=== PATIENT | male | born 1960 | race Caucasian/White ===

== ENCOUNTER 2025-01-01 08:20 | Inpatient (IN) | payer MEDICAID, SELFPAY ==
[2025-01-01] VITALS (73 sets, daily range): BP systolic 96–198; BP diastolic 43–100; PULSE 79–104; RESP 6–26; TEMP 36.5–37.7; O2SAT 63–97; BMI 44.4
--- NOTE | 2025-01-01 08:25 | ECG_ITS ---
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 Measurements Intervals [place] Rate: 95 P: 10 MA: 176 QRS: -56 QRSD: 178 T: 1 QT: 400 QTc: 503 Interpretive Statements SINUS RHYTHM POSSIBLE LEFT ATRIAL ENLARGEMENT [-0.1mV P-WAVE IN V1/V2] INDETERMINATE AXIS RIGHT BUNDLE BRANCH BLOCK [120+ ms QRS DURATION, UPRIGHT V1, 40+ ms S IN I/aVL/V4/V5/V6] LEFT ANTERIOR FASCICULAR BLOCK [QRS AXIS <= -45, QR IN I, RS IN II] INTERPRETATION BASED ON A DEFAULT AGE OF 40 YEARS No previous ECG available for comparison Electronically Signed On 01-02-2025 11:37:46 CDT by Pop Santillan M.D. [id number]
--- NOTE | 2025-01-01 08:25 | XR_ITS ---
WS: [id number] XR chest 1V portable [id number] REASON FOR EXAM: dyspnea/cough FINDINGS: No previous examination for comparison. Moderate tortuosity and ectasia of the thoracic aorta. Cardiomegaly. Central pulmonary venous congestion. Subtle interstitial opacities in the right lower lung. There is blunting of the right costophrenic angle and fluid in the minor fissure. There is blunting of the costophrenic angle on the left. XR/XR chest 1V portable [id number] IMPRESSION: Findings are suggestive of subacute congestive heart failure.
--- NOTE | 2025-01-01 08:26 | W.ED.GENADLT ---
HPI - General Adult General: Chief complaint: Weakness Stated complaint: Stemi Time Seen by Provider: 01/01/25 08:25 History of Present Illness: 64-year-old male presents emergency room via EMS. Family called states he was generally not feeling well was very weak had been in bed since yesterday not really gotten up. EMS initially called a STEMI alert he is not having any chest pain appears to have a bundle branch block on his EKG does not on initial evaluation appear to be having acute coronary syndrome. Patient is diabetic he has bilateral leg ulcers their legs are red and inflamed he reports he was hospitalized about a month ago for IV antibiotics for cellulitis he was last on oral antibiotics finishing about a week to week and a half ago. He is moderately hypoxic when he arrives with an O2 sat in the 70% on peripheral oximetry. Patient is a smoker and diabetic. He relates he has a history of prostate cancer, states he had a prostatectomy but no chemo or radiation afterwards is not having any treatment now. Patient denies any oral anticoagulants denies any history of DVT or PE. Patient does not from this area he is traveling through he usually gets his care in the [facility]. Associated symptoms: Reports malaise and rash; Deny chest pain or dyspnea Related Data Home Medications ?Medication ?Instructions ?Recorded ?Confirmed bupropion HCl 300 mg 24 hr tablet, 300 mg PO QAM 01/01/25 01/01/25 extended release cephalexin 500 mg capsule 500 mg PO Q8H 01/01/25 01/01/25 doxycycline hyclate 100 mg tablet 100 mg PO BID 01/01/25 01/01/25 gabapentin 600 mg tablet 1,200 mg PO TID 01/01/25 01/01/25 ipratropium 0.5 mg-albuterol 3 mg 3 ml inhalation Q6H PRN Shortness 01/01/25 01/01/25 (2.5 mg base)/3 mL nebulization Of Breath soln lisinopril 20 mg tablet 20 mg PO BID 01/01/25 01/01/25 prednisone 20 mg tablet See Rx Instructions .Route .COMPLEX 01/01/25 01/01/25 spironolactone 25 mg tablet 25 mg PO DAILY 01/01/25 01/01/25 Allergies Allergy/AdvReac Type Severity Reaction Status Date / Time No Known Allergies Allergy Verified 06/02/25 08:33 Review of Systems Const: Reports: fever(s), chills, body aches, fatigue and malaise Card: Denies: chest pain Resp: Denies: dyspnea GI: Denies: abdominal pain : Denies: dysuria, urinary frequency or urinary urgency Musc: Denies: neck pain or back pain Skin/Breast: Reports: rash, sores, non-healing lesions and lesions PFSH ED PFSH: Medical History (Updated 01/01/25 @ 12:27 by Rajesh Paiz DO) Obesity Venous stasis of lower extremity Hypertension Diabetes mellitus Social History (Updated 01/01/25 @ 08:37 by Rajesh Paiz DO) Smoking and tobacco/nicotine status: current every day tobacco/nicotine user Physical Exam Const: COMMON NORMALS: no acute distress GENERAL APPEARANCE: cooperative ORIENTATION/CONSCIOUSNESS: Yes awake, Yes oriented to person, Yes oriented to place and Yes oriented to time HENMT: COMMON NORMALS: normocephalic, atraumatic and hearing grossly normal bilaterally HEAD & SCALP: normocephalic and atraumatic Resp: COMMON NORMALS: normal respiratory effort, No retractions, No use of accessory muscles and clear to auscultation bilaterally AUSCULTATION: clear to auscultation bilaterally Cardio: COMMON NORMALS: regular rate, regular rhythm and No murmurs present (Cardio) RATE: regular rate RHYTHM: regular rhythm GI: COMMON NORMALS: Soft to palpation and No hepatosplenomegaly present AUSCULTATION: Yes normoactive bowel sounds PALPATION: Yes Soft to palpation, No Tenderness to palpation present (GI), No Guarding due to palpation present (GI) and Yes No hepatosplenomegaly present Extremity: OTHER: Bilateral lower extremity edema redness and erythema or skin breakdown particularly in the anterior tibia distally on the left. Wounds are weeping semipurulent serous fluid Neuro: SENSORIUM/ORIENTATION: Yes oriented to person, Yes oriented to place and Yes oriented to time Skin: COMMON NORMALS: no rashes or lesions noted GENERAL SKIN EXAM: no rashes or lesions noted Course Vital Signs: Vital signs: Vital Signs Temperature 98.0 F 01/01/25 08:22 Pulse Rate 92 01/01/25 11:43 Respiratory Rate 14 01/01/25 10:45 Blood Pressure 198/80 01/01/25 11:43 Pulse Oximetry 89 L 01/01/25 11:43 Oxygen Delivery Me thod Nasal Cannula 01/01/25 10:45 Oxygen Flow Rate 6 01/01/25 10:45 MDM - General Adult Medical Decision Making Sepsis the source of the infection is a cellulitis in his lower extremities. Will admit we did get old records which were made available for the hospitalist to review by the time they arrived he had already gone to the floor. Cultures done and antibiotics initiated. Patient was given Lasix for his congestive heart failure. We did give a small amount of fluid however due to his congestive heart failure is felt that a full fluid bolus for sepsis would be detrimental as patient was already in decompensated heart failure Medical Records I reviewed the patient's medical records. Lab Data I reviewed the patient's lab results. 01/01/25 08:31 01/01/25 09:22 Radiology Impressions Chest X-Ray 01/01/25 08:25 IMPRESSION: Findings are suggestive of subacute congestive heart failure. Laboratory Results WBC 11.90 10^3/uL (3.29-11.43) H 01/01/25 08:31 RBC 5.44 10^6/uL (3.85-5.65) 01/01/25 08:31 Hgb 14.80 g/dL (11.27-16.99) 01/01/25 08:31 Hct 51.6 % (37-53) 01/01/25 08:31 MCV 94.9 fl (82-101) 01/01/25 08:31 MCH 27.2 pg (27-33) 01/01/25 08:31 MCHC 28.7 g/dL (30-55) L 01/01/25 08:31 RDW 22.0 % (12.1-15.1) H 01/01/25 08:31 Plt Count 292 10^3/cmm (157-399) 01/01/25 08:31 MPV 11.3 fL (7.4-10.4) H 01/01/25 08:31 Neut % (Auto) 78.2 % 01/01/25 08:31 Lymph % (Auto) 9.2 % 01/01/25 08:31 [place] % (Auto) 11.3 % 01/01/25 08:31 Eos % (Auto) 0.0 % 01/01/25 08:31 Baso % (Auto) 0.3 % 01/01/25 08:31 Neut # (Auto) 9.32 10^3/uL (1.8-7.7) H 01/01/25 08:31 Lymph # (Auto) 1.1 10^3/uL (0.8-4.8) 01/01/25 08:31 [place] # (Auto) 1.3 10^3/uL (0.2-0.9) H 01/01/25 08:31 Eos # (Auto) 0.0 10^3/uL (0.0-0.8) 01/01/25 08:31 Baso # (Auto) 0.0 10^3/uL (0.0-0.1) 01/01/25 08:31 Nucleated RBC % (auto) 0.2 % 01/01/25 08:31 Nucleated RBCs # 0.0 /100WBC 01/01/25 08:31 Specimen Type Arterial 01/01/25 08:35 Sample Site Radial, left 01/01/25 08:35 ABG pH 7.31 (7.35-7.45) L 01/01/25 08:35 ABG pCO2 59.8 mmHg (35-45) H 01/01/25 08:35 ABG pO2 61.6 mmHg (80.0-100.0) L 01/01/25 08:35 ABG PO2/FiO2 Ratio 192 01/01/25 08:35 ABG HCO3 29.8 mmol/L (22-26) H 01/01/25 08:35 ABG O2 Saturation 89.5 01/01/25 08:35 ABG Base Excess 1.8 mmol/L (-2.0-2.0) 01/01/25 08:35 Kt Test Pos 01/01/25 08:35 A-a O2 Gradient 12.3 mmHg (5-10) H 01/01/25 08:35 Hematocrit 46.0 % (42-52) 01/01/25 08:35 Hgb O2 Saturation 83.4 % (95-100) L 01/01/25 08:35 Carboxyhemoglobin 7.0 %THgb (0.4-20.1) 01/01/25 08:35 Methemoglobin < 0.0 % (0.4-1.5) L 01/01/25 08:35 Total Hemoglobin 15.0 g/dL (14-18) 01/01/25 08:35 Sodium 143.0 mmol/L (131-143) 01/01/25 08:35 Potassium 5.1 mmol/L (3.5-5.0) H 01/01/25 08:35 Glucose 295.0 mg/dL (70-115) H 01/01/25 08:35 Ionized Calcium 1.2 mmol/L (1.1-1.4) 01/01/25 08:35 O2 Delivery Device Nc 01/01/25 08:35 O2 Liters/Min 3.0 % 01/01/25 08:35 FiO2 32.0 % 01/01/25 08:35 [employer] Field Coordinator ID Cak 01/01/25 08:35 Sodium 144 mmol/L (136-145) 01/01/25 09:22 Potassium 5.6 mmol/L (3.5-5.1) H 01/01/25 09:22 Chloride 101 mmol/L (98-107) 01/01/25 09:22 Carbon Dioxide 26 mmol/L (22-29) 01/01/25 09:22 Anion Gap 22.6 (5-19) H 01/01/25 09:22 BUN 21 mg/dL (8-23) 01/01/25 09:22 Creatinine 1.9 mg/dL (0.7-1.2) H 01/01/25 09:22 GFR Calculation 35.6 mL/min (90-130) L 01/01/25 09:22 Glucose 292 mg/dL (65-115) H 01/01/25 09:22 Calculated Osmolality 312 mOsm/kg (285-295) H 01/01/25 09:22 Lactic Acid Cancelled 01/01/25 08:31 Lactate 3.9 mmol/L (0.5-2.2) H 01/01/25 09:22 Calcium 9.0 mg/dL (8.5-10.5) 01/01/25 09:22 Total Bilirubin 0.4 mg/dL (0.15-1.2) 01/01/25 09:22 AST 2977 U/L (0-40) H 01/01/25 09:22 ALT 1449 U/L (0-41) H 01/01/25 09:22 Alkaline Phosphatase 127 U/L (40-130) 01/01/25 09:22 Troponin T Baseline 102 ng/L (0-15) H* 01/01/25 09:22 NT-Pro-B Natriuret Pep 4572 pg/mL (0-125) H 01/01/25 09:22 Total Protein 5.9 g/dL (6.6-8.7) L 01/01/25 09:22 Albumin 2.7 g/dL (3.5-5.2) L 01/01/25 09:22 Globulin 3.2 g/dL (1.3-4.6) 01/01/25 09:22 Procalcitonin 0.76 ng/mL (0-0.5) H 01/01/25 09:22 Serum Ketones Negative (Negative) 01/01/25 09:22 All radiology interpretation(s) finalized by discharge Discharge Plan Discharge Patient Disposition: Admitted As Inpatient Admit Provider: Gabino Mcnulty Clinical Impression: Cellulitis and abscess of lower extremity, Diabetes mellitus, Hypertension, Venous stasis of lower extremity, Obesity, Sepsis Condition: Stable Coding Level of Care Code ED Agent Ticketing Gate for Reji Rooney
--- NOTE | 2025-01-01 08:37 | USCV_ITS ---
Bhaskar Gandara Age: 64 Gender: M : 1960 Exam Date: 01/01/2025 08:48 Ordering Phys: Rajesh Paiz DO Technologist: PAGE Exam Location: [facility] [place], [place] Indication: LE Swelling and Pain HISTORY: Lower extremity swelling. Lower extremity pain. PROCEDURES: Venous duplex imaging was performed in bilateral lower extremities. The following venous structures were evaluated: common femoral vein, profunda vein, proximal portion of the greater saphenous vein, superficial femoral vein, and the popliteal vein. In addition, the posterior tibial and peroneal trunk were evaluated. Serial compression, augmentation maneuvers, and spectral Doppler flow evaluation were performed. FINDINGS: No evidence of DVT seen in any vessel visualized at this time. CONCLUSIONS No evidence of left lower extremity DVT. No evidence of right lower extremity DVT. Donn Chavira MD (Electronically Signed) Final Date: 01 January 2025 09:28 S
[2025-01-01 08:47] LABS: ABG PCO2 59.8 mmHg (35-45); ABG PH Result 7.31 (7.35-7.45); Alveolar-Arterial Oxygen Gradi 12.3 mmHg (5-10); Base Excess ABG 1.8 mmol/L (-2.0-2.0); Blood Gas Allen Test Pos; Blood Gas Operator Identificat CAK; Blood Gas Sample Site Radial, left; Blood Gas Sample Type Arterial; HCO3 ABG 29.8 mmol/L (22-26); HGB O2 Sat 83.4 % (95-100); Ionized Calcium Level - ABG 1.2 mmol/L (1.1-1.4); Methemoglobin < 0.0 % (0.4-1.5); Oxygen Device NC; Oxygen Saturation ABG 89.5; PO2 ABG 61.6 mmHg (80.0-100.0); PO2 FiO2 Ratio Arterial Blood 192; Potassium Level - ABG 5.1 mmol/L (3.5-5.0)
--- NOTE | 2025-01-01 08:58 | PC.NURSE ---
family arrives and states that PT has got progressively weaker over the past week. Family also reports that PT does not wear his home 02
[2025-01-01 08:59] LABS: Basophils % 0.3 %; Hematocrit 51.6 % (37-53); Lymphocytes # 1.1 10^3/uL (0.8-4.8); Lymphocytes % 9.2 %; Mean Corpuscular HGB Conc 28.7 g/dL (30-55); Mean Corpuscular Hemoglobin 27.2 pg (27-33); Mean Corpuscular Volume 94.9 fl (82-101); Mean Platelet Volume 11.3 fL (7.4-10.4); Monocytes # 1.3 10^3/uL (0.2-0.9); Monocytes % 11.3 %; Neutrophils # 9.32 10^3/uL (1.8-7.7); Neutrophils % 78.2 %; Nucleated Red Blood Cells % 0.2 %; Platelet Count 292 10^3/cmm (157-399); Red Blood Count 5.44 10^6/uL (3.85-5.65)
--- NOTE | 2025-01-01 09:13 | PC.PHAR ---
Pharmacy states pt mainly fills in [facility] Ar. Keflex 500mg and Doxycycline 100mg should be finished. Pt has Humuilin 70/30 and Glipizide ER 10mg on file but not filled since 2022. No other diabetic medications found.
--- NOTE | 2025-01-01 09:27 | PC.NURSE ---
PT REFUSING MORRIS CATH, PT STATES I WEAR A DIAPER, I'M INCONTINENT. NURSE EDUCATED PT ABOUT A MORRIS, PT STATES YOU ARE NOT DOING THAT.
[2025-01-01] MEDS: FUROsemide 10 mg/mL SDV 10mL 60 MG IVP (09:38)
[2025-01-01 09:51] LABS: Ketone (Acetest) Serum Negative (Negative)
[2025-01-01 09:56] LABS: Lactate (Lactic Acid level) 3.9 mmol/L (0.5-2.2)
[2025-01-01 09:58] LABS: Troponin(5th) Baseline 102 ng/L (0-15)
[2025-01-01 10:16] LABS: NT Pro B Type Natriuretic Pept 4572 pg/mL (0-125); Procalcitonin 0.76 ng/mL (0-0.5)
--- NOTE | 2025-01-01 10:18 | ECG_ITS ---
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: : 1960 Requested By: Rajesh Lucas Order Number: [id number] Reading MD: GAURI BAR Measurements Intervals [employer] Rate: 94 P: 30 KS: 190 QRS: -68 QRSD: 190 T: 16 QT: 411 QTc: 514 Interpretive Statements SINUS RHYTHM POSSIBLE LEFT ATRIAL ENLARGEMENT [-0.1mV P-WAVE IN V1/V2] RIGHT BUNDLE BRANCH BLOCK [120+ ms QRS DURATION, UPRIGHT V1, 40+ ms S IN I/aVL/V4/V5/V6] LEFT ANTERIOR FASCICULAR BLOCK [QRS AXIS <= -45, QR IN I, RS IN II] Compared to ECG 01/01/2025 08:24:20 Indeterminate axis no longer present Electronically Signed On 01-03-2025 23:02:55 CDT by GAURI BAR [id number] [id number]
[2025-01-01 10:27] LABS: Albumin Level 2.7 g/dL (3.5-5.2); Alkaline Phosphatase 127 U/L (40-130); Blood Urea Nitrogen 21 mg/dL (8-23); Carbon Dioxide 26 mmol/L (22-29); Chloride 101 mmol/L (98-107); Creatinine Clr Calc Pharmacy 58.7904; Globulin 3.2 g/dL (1.3-4.6); Glomerular Filtration Rate 35.6 mL/min (90-130); Glucose 292 mg/dL (65-115); Osmolality Calculated 312 mOsm/kg (285-295); Sodium 144 mmol/L (136-145); Total Bilirubin 0.4 mg/dL (0.15-1.2); Total Protein 5.9 g/dL (6.6-8.7)
[2025-01-01 10:32] LABS: Anion Gap 22.6 (5-19); Potassium 5.6 mmol/L (3.5-5.1)
[2025-01-01 10:39] LABS: Alanine Aminotransferase 1449 U/L (0-41)
[2025-01-01 10:40] LABS: Aspartate Amino Transferase 2977 U/L (0-40)
[2025-01-01] MEDS: VANCOMYCIN ADD-Vantage 1,000 MG in 0.9% NaCl ADD-Vantage 250 ML 250 MG IV (10:59)
[2025-01-01] MEDS: sodium chloride 0.9% 50 ML IV (10:59)
[2025-01-01] MEDS: calcium chloride 10% Syr 10 mL 1 GM IVP (11:05)
[2025-01-01] MEDS: insulin regular-human 100 units/1 mL 10 UNIT IVP (11:11)
[2025-01-01 11:21] LABS: Reflex Lactate Order REFLEX LACTIC ORDERD
[2025-01-01 12:01] LABS: Glucose Point of Care 286 mg/dL (70-110)
[2025-01-01] MEDS: piperacillin-tazobactam 3.375 GM in sodium chloride 0.9% (plus) 50 ML IV ×2 (12:03→21:39)
[2025-01-01] MEDS: sodium bicarbonate 8.4% syr 100 MEQ in dextrose 5% 250 ML 700 MEQ IV (12:04)
[2025-01-01] MEDS: sodium chloride 0.9% 250 ML IV (12:10)
[2025-01-01 12:22] LABS: Lactic Acid level (Lactate) 3.5 mmol/L (0.5-2.2)
--- NOTE | 2025-01-01 12:25 | PM.HP ---
Providers/Chief Complaint Admitting Physician: Gabino Mcnulty Chief Complaint: Stemi History of Present Illness Bhaskar Gandara is a 64 year old male with a history of diabetes, hypertension, and prior prostate cancer surgery, chronic venous stasis, weeping lower extremity ulcers, congestive heart failure, diabetes, hypertension, heavy smoking, presents after being weak, lethargic in his camper. Was brought over on behest of his caregivers/employees who have been traveling with him. 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 He normally resides in [facility]. Over the past day or so, they have experienced red, swollen, weeping legs with ulcers, particularly on the left leg (distal third of the tibia and posteriorly) and swelling in the right leg as well. The patient reports pain in the affected areas. There are multiple abrasions with granulation tissue on the right arm and a bruise on the left elbow from the fall, as well as multiple healing linear abrasions on the posterior side of the right arm he states after another accident. The patient denies chest pain, pressure, fever, chills, sore throat, or sneezing. They report chronic shortness of breath and cough, worsened over the last week, and a long history of heavy smoking (since age 5, currently still smoking heavily). The patient uses supplemental oxygen as needed but not at night and does not use CPAP. They have a history of incontinence following prostate surgery but no difficulty with urination, no burning, pain, or blood in urine or stool, and no abdominal pain or vomiting. The patient lives in an , uses aquino for support when walking, and has assistance from an employee/friend. They report taking all prescribed medications as directed. The patient uses kratom for pain relief and has a history of being advised to use ibuprofen for pain, which they have taken frequently. There is a recent finding of elevated creatinine (1.9), and the patient is being evaluated for possible acute or chronic kidney dysfunction. The patient is also being evaluated for possible congestive heart failure and infection (cellulitis) of the legs, with an elevated white blood cell count and troponin noted. The patient denies alcohol and other recreational drug use except for kratom. He reports a history of a normal chest x-ray despite heavy smoking. The patient is open to nicotine patches while hospitalized and has a designated decision-maker (Kateryna and their son) if needed. Review of Systems Const: Reports: change in sleep pattern; Denies: fever(s), chills, body aches or malaise ENMT: Denies: throat pain Card: Reports: edema and swelling of feet/ankles; Denies: chest pain, pre-syncope or dyspnea on exertion Resp: Denies: dyspnea, productive cough, change in phlegm color or hemoptysis GI: Denies: abdominal pain, nausea, vomiting, diarrhea, constipation, hematochezia or melena : Denies: flank pain, difficulty urinating, urinary frequency or hematuria Musc: Denies: back pain, joint swelling or joint redness Skin/Breast: Denies: rash or new lesions Neuro: Reports: other (Lethargy); Denies: headache(s) Medications/Allergies Home Medications ?Medication ?Instructions ?Recorded ?Confirmed ?Last Taken ?Type bupropion HCl 300 mg 24 hr tablet, 300 mg PO QAM 01/01/25 01/01/25 Unknown History extended release cephalexin 500 mg capsule 500 mg PO Q8H 01/01/25 01/01/25 Unknown History doxycycline hyclate 100 mg tablet 100 mg PO BID 01/01/25 01/01/25 Unknown History gabapentin 600 mg tablet 1,200 mg PO TID 01/01/25 01/01/25 Unknown History ipratropium 0.5 mg-albuterol 3 mg 3 ml inhalation Q6H PRN Shortness 01/01/25 01/01/25 Unknown History (2.5 mg base)/3 mL nebulization Of Breath soln lisinopril 20 mg tablet 20 mg PO BID 01/01/25 01/01/25 Unknown History prednisone 20 mg tablet See Rx Instructions .Route .COMPLEX 01/01/25 01/01/25 Unknown History spironolactone 25 mg tablet 25 mg PO DAILY 01/01/25 01/01/25 Unknown History Allergies Allergy/AdvReac Type Severity Reaction Status Date / Time No Known Allergies Allergy Verified 01/01/25 08:33 PFSH Acute PFSH: Medical History (Updated 01/01/25 @ 14:04 by Gabino Mcnulty MD) Heavy cigarette smoker CHF (congestive heart failure) Obesity Venous stasis of lower extremity Hypertension Diabetes mellitus Social History Smoking and tobacco/nicotine status: current every day tobacco/nicotine user Vitals/I&O/Wt Last Vital Signs Temp 98.0 F 01/01/25 08:22 Pulse 92 01/01/25 11:43 Resp 14 01/01/25 10:45 BP 198/80 01/01/25 11:43 Pulse Ox 89 L 01/01/25 11:43 O2 Del Method Nasal Cannula 01/01/25 10:45 O2 Flow Rate 6 01/01/25 10:45 12/31/24 01/01/25 01/01/25 22:59 06:59 14:59 Intake Total 50 / 50 Balance 50 / 50 Weight last 48 hrs Weight 158.757 kg Physical Exam Const: COMMON NORMALS: patient oriented x3 and alert GENERAL APPEARANCE: cooperative ORIENTATION/CONSCIOUSNESS: Yes awake HENMT: COMMON NORMALS: oropharynx normal Resp: COMMON NORMALS: normal respiratory effort AUSCULTATION: diminished lung sounds Cardio: COMMON NORMALS: no JVD, regular rhythm, S1 normal heart sound present, S2 normal heart sound present and No murmurs present (Cardio) RHYTHM: regular rhythm HEART SOUNDS: S1 normal heart sound present and S2 normal heart sound present GI: COMMON NORMALS: Normal to inspection, nondistended, normoactive bowel sounds present, Soft to palpation and non-tender PALPATION: Yes Soft to palpation Extremity: OTHER: Legs red, swollen, weeping with ulcers (noted on left leg distal third of tibia and posteriorly), both legs swollen (3+), multiple abrasions on right arm, bruise on left elbow. Linear abrasions healing with granulation tissue without surrounding redness on posterior right arm extending from the triceps all the way to the wrist. Neuro: COMMON NORMALS: patient oriented x3 and moves all extremities SENSORIUM/ORIENTATION: Yes alert OTHER: [employer] Data 01/01/25 08:31 01/01/25 09:22 Micro: Microbiology 01/01/25 09:31 Blood Culture - Preliminary Blood SPECIMEN COLLECTED 01/01/25 08:31 Blood Culture - Preliminary Blood SPECIMEN COLLECTED A&P Assessment and plan (1) Respiratory failure with hypoxia and hypercapnia: Lethargic, has not been getting up monitor mental several days per caregivers what brought him in, on presentation with hypoxic and hypercapnic respiratory failure, saturation in the 70s, with respiratory status, send 0.31/59.8/61.6/29.8, previously using oxygen as needed only, had to be started on 6 L nasal cannula oxygen. Reviewed vitals, CBC, ABG, CMP, troponin, chest x-ray, EKG, ER provider note, discussed with ER provider. Respiratory failure appears to be multifactorial with noted elevated BNP, findings of congestive heart failure on chest x-ray, peripheral edema with weeping in lower extremities, diminished air entry, hypercapnia. As well as COPD moderate exacerbation, noted coughing on exam, mildly productive. Diminished air entry. Furthermore with acute encephalopathy on presentation with lethargy, has been listless in the last few days in his camper and so was brought in by the caregivers for evaluation. He is not from this area, he is traveling from [place] with his employees and caregiver. Treat CHF exacerbation, continue IV diuresis with 40 mg IV Lasix twice daily, monitor intake and output, monitor electrolytes with risk of deficiency, monitor renal function with risk of worsening CHINTAN. Assessed with TTE. Question of possible PE not excluded, D-dimer abnormal, although may be in the setting of CHINTAN and leg wounds, lower extremity duplex has been performed and without DVT. Difficult to perform definitive imaging at this time as he is having renal dysfunction, and anticipated technical difficulties currently with VQ scan. Will empirically change to heparin drip for now without bolus, monitor PTT with risk of bleeding, until more definitive, monitor for risk of assessment can be performed. Continue oxygen support, target saturation 88-92%, avoid hyperoxia. Treat COPD exacerbation with breathing treatments, IV Solu-Medrol 30 mg IV every 8 hours, empiric antibiotic coverage with Zosyn and vancomycin as below. (2) CHINTAN (acute kidney injury): Unclear etiology of CHINTAN, possibly secondary to NSAID use as he does take a lot of ibuprofen. Discussed with him to avoid NSAIDs. Will assess kidney ultrasound. Reassess renal function. Monitor intake and output, although this is very difficult due to his incontinence. He declines Ayala unless he is sedated. (3) Hyperkalemia: Hold lisinopril, hold spironolactone. Low potassium diet. Reassess potassium. (4) Transaminitis: Moderate to severe transaminitis, AST 2977, ALT 1449. Request hepatitis panel, HIV. Check CK. Check liver ultrasound. Requested INR, ammonia. (5) CHF (congestive heart failure): Severe acute congestive heart failure, type unknown, with respiratory failure with hypoxia and hypercapnia. obtain TTE. Continue IV diuresis, monitor for electrolyte deficiency, worsening renal function. Complete troponin EKG series. (6) Troponin level elevated: Noted baseline troponin elevation at 102. No chest pain. Does have history of congestive heart failure type unknown. Complete troponin EKG series. Initiated heparin drip as above. Will give a dose of aspirin, monitor for risk of bleeding. Monitor PTT. Obtain TTE. (7) Cellulitis: Of lower extremity, worse on the left, superimposed on bilateral lower extremity edema with weeping, congestive heart failure exacerbation with chronic dermatitis and ulcers. Empiric Zosyn and vancomycin at this time. Monitor for risk of worsening kidney injury with antibiotic combination. (8) Lower extremity ulceration: Treat congestive heart failure exacerbation, severe edema of lower extremities with weeping, ulcerations. Continue IV diuresis as above. Elevate lower extremities. Wound care with alginate dressing. (9) Chronic stasis dermatitis: Will obtain CYN. May benefit from compression dressings if adequate perfusion. (10) Diabetes mellitus: Sliding scale insulin. Consistent carb diet. Monitor POC glucose. (11) Heavy cigarette smoker: Discussed smoking cessation for 4 minutes. He is not ready to quit. He smokes upwards of 3 packs/day. Discussed risks of cardiovascular complications, [place], stroke, lung disease, cancer, other, he understands, he is not ready to quit. He is agreeable to nicotine replacement in the hospital. Plan History of prostate cancer status post prostatectomy with urinary incontinence. Edentulous: Mechanical soft diet. PDMP PDMP Reviewed: Not Reviewed Attestations Medical Necessity Statement*: Admission over 2 midnights anticipated for assessment and management of respiratory failure with hypoxia and hypercapnia, respiratory acidosis, acute congestive heart failure, suspected undiagnosed COPD with exacerbation, cellulitis, assessment of possible NSTEMI, possible PE, and gentleman who is a very heavy smoker. Diagnoses Respiratory failure with hypoxia and hypercapnia J96.91; J96.92 CHINTAN (acute kidney injury) N17.9 Hyperkalemia E87.5 Transaminitis R74.01 CHF (congestive heart failure) I50.9 Troponin level elevated R79.89 Cellulitis L03.90 Lower extremity ulceration L97.909 Chronic stasis dermatitis I87.2 Diabetes mellitus E11.9 Heavy cigarette smoker F17.210
--- NOTE | 2025-01-01 13:43 | USR_ITS ---
PROCEDURE INFORMATION: Exam: US Abdomen, Limited; Right Upper Quadrant Exam date and time: 01/01/2025 5:07 PM Age: 64 years old Clinical indication: Abnormal findings; Abnormal lab test; Other: Transamnitis; Additional info: Transaminitis TECHNIQUE: Imaging protocol: Real time ultrasound of the abdomen with image documentation. Limited exam focused on the right upper quadrant. COMPARISON: No relevant prior studies available. FINDINGS: Liver: The liver demonstrates an irregular contour and parenchymal heterogeneity consistent with cirrhosis. I see no liver mass. Gallbladder: Normal. No gallstones. There is no gallbladder wall thickening. Biliary ducts: Normal. No stones. No dilation. Pancreas: Visualized pancreas is unremarkable. Right kidney: Normal. No mass. No hydronephrosis. US/US liver [id number] IMPRESSION: Hepatic cirrhosis
[2025-01-01] MEDS: ipratropium-albuterol 3 mL Neb INHALATION ×2 (14:01→19:45)
[2025-01-01 14:23] LABS: Magnesium 2.2 mg/dL (1.7-2.3)
[2025-01-01 14:24] LABS: Bilirubin Urine Negative (Negative); Blood Urine 2+ (Negative); Glucose Urine UA Negative (Normal); Ketones Urine Negative (Negative); Leukocyte Esterase Urine Trace (Negative); Nitrate Urine Negative (Negative); Protein Urine 2+ (Negative); Specific Gravity, Urine 1.019 (1.005-1.030); Urine Appearance Cloudy (CLEAR); Urine Color Dark Yellow (Yellow)
--- NOTE | 2025-01-01 14:25 | ECG_ITS ---
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: : 1960 Requested By: Rajesh Lucas Order Number: [id number] Reading MD: GAURI BAR Measurements Intervals [place] Rate: 93 P: 46 WA: 203 QRS: -71 QRSD: 182 T: 48 QT: 395 QTc: 494 Interpretive Statements SINUS RHYTHM POSSIBLE LEFT ATRIAL ENLARGEMENT [-0.1mV P-WAVE IN V1/V2] RIGHT BUNDLE BRANCH BLOCK [120+ ms QRS DURATION, UPRIGHT V1, 40+ ms S IN I/aVL/V4/V5/V6] LEFT ANTERIOR FASCICULAR BLOCK [QRS AXIS <= -45, QR IN I, RS IN II] Compared to ECG 01/01/2025 10:18:28 No significant changes Electronically Signed On 01-03-2025 23:03:12 CDT by GAURI BAR [email or web address]
[2025-01-01 14:29] LABS: Add Urine Microscopic? YES; Bacteria Urine None Seen /hpf; Hyaline Casts Urine 42.19 /lpf; RBC Urine 0-2 /hpf (0-2); Squamous Epithelial Cell Urine 0-5 /hpf (0-5); WBC Urine 0-5 /hpf (0-5)
[2025-01-01 14:30] LABS: INR 1.65 (0.8-1.2)
[2025-01-01 14:33] LABS: Ammonia 116 umol/L (16-60)
[2025-01-01] MEDS: nicotine 21 mg Patch 2 PATCH TRANSDERMA (14:36)
[2025-01-01 14:37] LABS: HIV 1 & 2 Antibody Non-Reactive (Non-Reactiv); HIV 1 & 2 Antigen Non-Reactive (Non-Reactiv)
[2025-01-01] MEDS: enoxaparin 40 mg/0.4 mL Syringe SUBCUT (14:38)
[2025-01-01 14:39] LABS: Hepatitis A Antibody IgM Non-Reactive (Nonreactive); Hepatitis B Core IgM Non-Reactive (Nonreactive); Hepatitis B Surface Antigen Non-Reactive (Nonreactive); Hepatitis C Virus Antibody Non-Reactive (Nonreactive)
[2025-01-01 14:39] LABS: D Dimer 4.32 ug/mLFEU (0-0.59)
[2025-01-01 15:31] LABS: Amphetamines Screen Urine Negative (Negative); Barbiturates Screen Urine Negative (Negative); Benzodiazepines Screen Urine Negative (Negative); Cocaine Screen Urine Negative (Negative); Opiate Screen Urine Negative (Negative); PCP Screen Urine Negative (Negative); THC Screen Urine Negative (Negative)
[2025-01-01 15:53] LABS: Estmated Average Glucose 192; Hemoglobin A1C 8.3 % (4.0-6.0)
--- NOTE | 2025-01-01 16:01 | PC.NURSE ---
Wound assessment: Pt has multiple wounds on lower cellulitis. legs. Measured one on each leg for the assessment. There is also multiple wounds noted on pt's posterior right arm. Measure one slightly distal to the elbow.
[2025-01-01 16:05] LABS: Troponin 5 6HR 95.06 ng/L (0-15); Troponin 5 6HR Delta -6.94 ng/L (0-12)
[2025-01-01 16:17] LABS: Creatine Phosphokinase 306 U/L (39-308)
[2025-01-01] MEDS: aspirin 81 mg EC Tablet 162 MG PO (16:47)
[2025-01-01] MEDS: acetaminophen 325 mg Tablet 650 MG PO (16:48)
[2025-01-01] MEDS: methylPREDNISolone sod succ 40 mg/mL INJ 30 MG IVP ×2 (16:50→21:42)
[2025-01-01] MEDS: albumin 25 G/100 ML BAG 60 G IV (16:52)
[2025-01-01] MEDS: FUROsemide 10 mg/mL SDV 4mL 40 MG IVP (16:57)
[2025-01-01] MEDS: heparin drip 25,000 UNIT/500 ML PREMIX 41 UNIT IV (17:03)
[2025-01-01] MEDS: vancomycin 2,000 MG/400 ML PIGGYBACK 200 MG IV (17:07)
[2025-01-01 17:17] LABS: Glucose Point of Care 360 mg/dL (70-110)
--- NOTE | 2025-01-01 17:18 | PC.NURSE ---
Dr Mcnulty notified via secure messaging: Pt refusing some of the US imaging tonight. Told the tech to come back later or tomorrow.
[2025-01-01] MEDS: insulin lispro 100 unit/1 mL SUBCUT ×2 (17:22→21:40)
--- NOTE | 2025-01-01 18:22 | PC.NURSE ---
Pt's cigarettes and juan randall sent homw with his caregiver, Ashley
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
--- NOTE | 2025-01-01 21:05 | PHA.VACGOAL ---
Vancomycin Goal - Goal Vancomycin Goal:: 10-15 mg/L Vancomycin Indication:: SSTI - Therapy Current therapy:: Pip/Tazo Day of therpy:: Day []of [] . Actual body weight (kg): 144.7 kg - Data Labs: WBC 11.90 10^3/uL (3.29-11.43) H 01/01/25 08:31 RBC 5.44 10^6/uL (3.85-5.65) 01/01/25 08:31 Hgb 14.80 g/dL (11.27-16.99) 01/01/25 08:31 Hct 51.6 % (37-53) 01/01/25 08:31 MCV 94.9 fl (82-101) 01/01/25 08:31 MCH 27.2 pg (27-33) 01/01/25 08:31 MCHC 28.7 g/dL (30-55) L 01/01/25 08:31 RDW 22.0 % (12.1-15.1) H 01/01/25 08:31 Sodium Cancelled 01/01/25 15:28 Potassium Cancelled 01/01/25 15:28 Chloride Cancelled 01/01/25 15:28 Carbon Dioxide Cancelled 01/01/25 15:28 Anion Gap Cancelled 01/01/25 15:28 BUN Cancelled 01/01/25 15:28 Creatinine Cancelled 01/01/25 15:28 GFR Calculation Cancelled 01/01/25 15:28 Treatment plan:: new consult Regimen:: New start vancomycin for Cellulitis. 1000 mg dose given in ER. No prior vancomycin history found. Started on maintenance dose of 2000 mg q24h.
[2025-01-01 21:07] LABS: Glucose Point of Care 342 mg/dL (70-110)
[2025-01-02] VITALS (212 sets, daily range): BP systolic 90–174; BP diastolic 43–80; PULSE 88–99; RESP 0–32; TEMP 36.7–37.2; O2SAT 76–95; BMI 44.4
--- NOTE | 2025-01-02 00:04 | PC.NURSE ---
PTT order placed for 0600, per protocol. Titrated at 0001. See Orders
--- NOTE | 2025-01-02 00:40 | PC.NURSE ---
Patients O2 continues to drop. Replaced pulse ox, sat patient up in bed, placed Oxymask on patient and still continued to drop into the low 80s. RT notified.
--- NOTE | 2025-01-02 01:35 | PC.NURSE ---
Patient cont to have periods of apnea and O2 saturation dropping into low 80s. Provider notified and received orders to place patient on bi-pap. RT notified and order placed.
[2025-01-02] MEDS: piperacillin-tazobactam 3.375 GM in sodium chloride 0.9% (plus) 50 ML IV (03:28)
[2025-01-02] MEDS: FUROsemide 10 mg/mL SDV 4mL 40 MG IVP ×2 (03:29→20:03)
[2025-01-02] MEDS: ipratropium-albuterol 3 mL Neb INHALATION ×4 (03:52→19:52)
[2025-01-02] MEDS: heparin drip 25,000 UNIT/500 ML PREMIX 44 UNIT IV ×2 (04:14→15:02)
[2025-01-02 07:01] LABS: Basophils % 0.2 %; Hematocrit 47.7 % (37-53); Lymphocytes # 0.9 10^3/uL (0.8-4.8); Lymphocytes % 9.3 %; Mean Corpuscular HGB Conc 28.1 g/dL (30-55); Mean Corpuscular Volume 96.2 fl (82-101); Monocytes # 0.7 10^3/uL (0.2-0.9); Monocytes % 7.1 %; Neutrophils # 8.27 10^3/uL (1.8-7.7); Neutrophils % 82.7 %; Nucleated Red Blood Cells # 0.1 /100WBC; Nucleated Red Blood Cells % 0.8 %; Platelet Count 261 10^3/cmm (157-399); Red Blood Count 4.96 10^6/uL (3.85-5.65); Red Cell Distribution Width 20.6 % (12.1-15.1)
[2025-01-02 07:18] LABS: Partial Thromboplastin Time 65.8 SECONDS (23.9-36.7)
[2025-01-02 07:20] LABS: Albumin Level 2.9 g/dL (3.5-5.2); Alkaline Phosphatase 132 U/L (40-130); Anion Gap 16.9 (5-19); Blood Urea Nitrogen 42 mg/dL (8-23); Calcium 8.4 mg/dL (8.5-10.5); Carbon Dioxide 31 mmol/L (22-29); Chloride 100 mmol/L (98-107); Creatinine Clr Calc Pharmacy 48.1467; Glomerular Filtration Rate 30.1 mL/min (90-130); Glucose 326 mg/dL (65-115); Osmolality Calculated 319 mOsm/kg (285-295); Potassium 4.9 mmol/L (3.5-5.1); Sodium 143 mmol/L (136-145); Total Bilirubin 0.3 mg/dL (0.15-1.2); Total Protein 5.9 g/dL (6.6-8.7)
[2025-01-02 07:30] LABS: INR 1.64 (0.8-1.2)
[2025-01-02 07:32] LABS: Alanine Aminotransferase 2909 U/L (0-41)
[2025-01-02 07:41] LABS: Aspartate Amino Transferase 3452 U/L (0-40)
[2025-01-02 08:14] LABS: Glucose Point of Care 308 mg/dL (70-110)
[2025-01-02] MEDS: insulin lispro 100 unit/1 mL SUBCUT ×4 (08:29→23:24)
[2025-01-02] MEDS: methylPREDNISolone sod succ 40 mg/mL INJ 30 MG IVP ×3 (08:29→23:25)
[2025-01-02] MEDS: nicotine 21 mg Patch 2 PATCH TRANSDERMA (08:29)
[2025-01-02] MEDS: albumin 37.5 GM/150 ML VIAL IV (08:31)
--- NOTE | 2025-01-02 10:31 | P.PN_ITS ---
Subjective 2 Subjective: Somnolent this morning, on BiPAP, awakens to voice and shoulder touch initially, but later more lethargic. Adjustments made to BiPAP. Vitals/I&O/Wt Last Vital Signs Temp 98.2 F 01/02/25 04:02 Pulse 90 01/02/25 08:11 Resp 16 01/02/25 07:46 BP 108/58 01/02/25 04:02 Pulse Ox 89 L 01/02/25 07:46 O2 Del Method BiPAP 01/02/25 07:46 O2 Flow Rate 15 01/02/25 00:35 FiO2 45 01/02/25 07:46 01/01/25 01/02/25 01/02/25 22:59 06:59 14:59 Intake Total 1200 / 1900 670.000 / 2570.000 219.667 / 219.667 Output Total 550 / 550 Balance 1200 / 1900 120.000 / 2020.000 219.667 / 219.667 Weight last 48 hrs Weight 144.7 kg Weight 144.7 kg Weight 158.757 kg Physical Exam 2 Const: GENERAL APPEARANCE: lethargic ORIENTATION/CONSCIOUSNESS: Yes lethargic HENMT: COMMON NORMALS: oropharynx normal Resp: COMMON NORMALS: normal respiratory effort AUSCULTATION: diminished lung sounds Cardio: COMMON NORMALS: regular rhythm, S1 normal heart sound present, S2 normal heart sound present and No murmurs present (Cardio) RHYTHM: regular rhythm HEART SOUNDS: S1 normal heart sound present and S2 normal heart sound present GI: COMMON NORMALS: Normal to inspection, nondistended, normoactive bowel sounds present, Soft to palpation and non-tender PALPATION: Yes Soft to palpation Extremity: OTHER: Legs red, swollen, weeping with ulcers (noted on left leg distal third of tibia and posteriorly), both legs swollen (3+), multiple abrasions on right arm, bruise on left elbow. Linear abrasions healing with granulation tissue without surrounding redness on posterior right arm extending from the triceps all the way to the wrist. Neuro: COMMON NORMALS: moves all extremities SENSORIUM/ORIENTATION: Yes lethargic OTHER: Asterixis Urinary Catheter Management: Ayala: Cath Placed During This Visit: yes Urinary Catheter Date of Insertion: 01/02/25 Urinary Catheter Time of Insertion: 09:55 Data 01/02/25 06:52 01/02/25 15:46 Micro: Microbiology 01/01/25 09:31 Blood Culture - Preliminary Blood NEGATIVE TO DATE 01/01/25 08:31 Blood Culture - Preliminary Blood NEGATIVE TO DATE A&P Assessment and plan (1) Respiratory failure with hypoxia and hypercapnia: Requiring BiPAP this morning. Lethargic but initially waking up to shoulder touch and voice. More lethargic in the afternoon. Repeat ABG, ammonia, CMP. Echocardiogram is being obtained. Discussed with his son, discussed risk of deterioration. Consideration of mechanical ventilation. Current NIPPV therapy. Added lactulose due to hyperammonemia and discovered cirrhosis on liver ultrasound. Discussed with the son. Repeat ABG with noted worsening of respiratory acidosis. Discussed with RT, NIPPV settings adjusted to AVAPS. In the evening he is alert and communicating. Ayala has been placed to better track intake and output. Continue to monitor urine output. Repeat CMP with noted improving liver parameters and renal function. Ammonia slightly better. Continue treatment of acute CHF as well as acute COPD. Continue IV steroids, and risk of gastritis, encephalopathy, hypertension, hyperglycemia. Continue breathing treatments. On empiric antibiotics for continued treatment of cellulitis. Antibiotics changed to linezolid and cefepime due to worsening renal function initially this morning. Question of possible PE not excluded, D-dimer abnormal, although may be in the setting of CHINTAN and leg wounds, lower extremity duplex has been performed and without DVT. Difficult to perform definitive imaging at this time as he is having renal dysfunction, and anticipated technical difficulties currently with VQ scan. Will empirically change to heparin drip for now without bolus, monitor PTT with risk of bleeding, until more definitive, monitor for risk of assessment can be performed. Continue oxygen support, target saturation 88-92%, avoid hyperoxia. (2) CHINTAN (acute kidney injury): Potassium improved, renal function worsening this morning up to 2.2 creatinine, worsening BUN, producing urine, but very difficult to struggle discussed with son due to incontinence. He had previously not been wanting to receive Ayala while awake. Lethargic today, Ayala placed. Producing urine so far. Continue to monitor. Albumin initially started, however, with worsening lethargy, continued fluid overload, concern for worsening hypercapnia withheld. Unclear etiology of CHINTAN, possibly secondary to NSAID use as he does take a lot of ibuprofen. Discussed with him to avoid NSAIDs. Will assess kidney ultrasound. Reassess renal function. Monitor intake and output, although this is very difficult due to his incontinence. He declines Ayala unless he is sedated. Reviewed kidney ultrasound. No hydronephrosis. Bladder decompressed. (3) Hyperkalemia: Potassium with fluctuation, improved this morning, but currently up to 5.5 again. Continues with low potassium diet, although has not eaten much today. Repeat potassium again this evening with diuresis. With holding lisinopril and spironolactone. Monitor on telemetry. (4) Transaminitis: Noted worsening transaminitis this morning. Reviewed liver ultrasound, discovering cirrhosis. Discussed with son new diagnosis. Ammonia level rechecked, 108. INR rechecked, 1.64. With worsening lethargy/encephalopathy today, requested lactulose enema. (5) CHF (congestive heart failure): Continue IV diuretic. Ayala catheter placed. Severe acute congestive heart failure, type unknown, with respiratory failure with hypoxia and hypercapnia. Review pending TTE. Continue IV diuresis, monitor for electrolyte deficiency, worsening renal function. Reviewed troponin series, without any further significant rise, mild decrease. Discussed with his son. (6) Troponin level elevated: As above. No chest pain. Does have history of congestive heart failure type unknown. Complete troponin EKG series. Initiated heparin drip as above. Will give a dose of aspirin, monitor for risk of bleeding. Monitor PTT. Obtain TTE. (7) Cellulitis: Antibiotics changed to linezolid and cefepime given worsening renal function today with possible contribution of antibiotic combination. Of lower extremity, worse on the left, superimposed on bilateral lower extremity edema with weeping, congestive heart failure exacerbation with chronic dermatitis and ulcers. Empiric Zosyn and vancomycin at this time. Monitor for risk of worsening kidney injury with antibiotic combination. (8) Lower extremity ulceration: Reviewed arterial Doppler ultrasound, noted monophasic flow below the knees, concern for at least moderate arterial disease, would avoid compression dressings with concern of causing ischemia. Discussed with nursing. Continue with alginate dressing, elevate extremities. Treat congestive heart failure exacerbation, severe edema of lower extremities with weeping, ulcerations. Continue IV diuresis as above. E (9) Chronic stasis dermatitis: (10) Diabetes mellitus: Sliding scale insulin. Consistent carb diet. Monitor POC glucose. (11) Heavy cigarette smoker: Discussed smoking cessation for 4 minutes. He is not ready to quit. He smokes upwards of 3 packs/day. Discussed risks of cardiovascular complications, [place], stroke, lung disease, cancer, other, he understands, he is not ready to quit. He is agreeable to nicotine replacement in the hospital. Plan Encephalopathy: Acute metabolic encephalopathy secondary to worsening renal failure, liver dysfunction, underlying cirrhosis, hyperammonemia, as well as hypercapnic encephalopathy with respiratory acidosis. Further assessment and treatment as above. History of prostate cancer status post prostatectomy with urinary incontinence. Edentulous: Mechanical soft diet. PDMP PDMP Reviewed: Not Reviewed Attestations 2 Medical Necessity Statement*: Continue admission for assessment and management of respiratory failure with encephalopathy Coding Level of Care Code Critical Care >/= 30 minutes Critical care time (in minutes): 45 The high probability of a clinically significant, sudden or life threatening deterioration, as referenced in this documentation, required my full and direct attention, intervention and personal management. The critical care time shown is in addition to time spent performing any reported separately billable procedures and includes the following: [x] Data and vital sign review and interpretation [x ] Patient assessment, examination and intervention [x] Medication orders and management [x] Patient/Family updates as able [x] Care Coordination and Documentation. Diagnoses Respiratory failure with hypoxia and hypercapnia J96.91; J96.92 CHINTAN (acute kidney injury) N17.9 Hyperkalemia E87.5 Transaminitis R74.01 CHF (congestive heart failure) I50.9 Troponin level elevated R79.89 Cellulitis L03.90 Lower extremity ulceration L97.909 Chronic stasis dermatitis I87.2 Diabetes mellitus E11.9 Heavy cigarette smoker F17.210
[2025-01-02 12:17] LABS: Glucose Point of Care 304 mg/dL (70-110)
--- NOTE | 2025-01-02 12:36 | XR_ITS ---
WS: [id number] XR chest 1V portable [id number] REASON FOR EXAM: post picc insertion FINDINGS: Right arm PICC line placement. The tip of the PICC line is in the mid to distal SVC. The x-ray technologist was told to inform the PICC line nurse to advance the catheter the additional centimeter of catheter still outside the scan which would place it within the distal SVC, a position appropriate for use. XR/XR chest 1V portable [id number] IMPRESSION: Right arm PICC line placement as above.
[2025-01-02] MEDS: linezolid premix 600 MG/300 ML PREMIX 300 MG IV ×2 (12:38→23:24)
--- NOTE | 2025-01-02 13:28 | PICC.NOTE ---
Triple lumen PICC placed to right basilic vein. Referred to vascular access nurse for PICC placement due to poor access and heparin gtt. Risks and benefits discussed and informed consent obtained from pt son, Arun, via phone. Right arm assessed with right brachial vein measuring 4.1 mm, straight, and apparent best choice for placement. Using sterile technique and MST, right basilic vein accessed x 1 stick. Mid-arm circumference measured 10 cm from right AC 33 cm. Trimmed cath 46 cm with 0 cm external length noted. CXR shows tip in SVC, in good position for use per radiologist. Line secured with stat-lock. Insertion site covered with Biopatch and TSM. Report given to bedside nurse, MARIN Noriega.
--- NOTE | 2025-01-02 13:49 | USCV_ITS ---
Bhaskar Gandara Age: 64 Gender: M : 1960 Exam Date: 01/02/2025 14:49 Ordering Phys: Gabino Mcnulty MD Technologist: PAGE [place] [facility] [place]: CHF, Elevated Trop BP: 128 / 64 HR: 84 Rhythm: Sinus Technical Quality: poor MEASUREMENTS (Male / Female) Normal Values 2D ECHO LV Diastolic Diameter PLAX 5.5 cm 4.2 - 5.9 / 3.9 - 5.3 cm IVS Diastolic Thickness 1.0 cm 0.6 - 1.0 / 0.6 - 0.9 cm IVS Systolic Thickness 1.1 cm LVPW Diastolic Thickness 1.2 cm 0.6 - 1.0 / 0.6 - 0.9 cm LVPW Systolic Thickness 1.4 cm LVOT Diameter 2.2 cm LV Ejection Fraction 2D Teich 53.2 % LV Ejection Fraction MOD 4C 55.0 % LV Ejection Fraction MOD 2C 52.1 % LV Ejection Fraction 2C AL 53.9 % LA Diameter 3.7 cm RA Systolic Volume 4C AL 63.3 ml RA Systolic Volume 4C MOD 61.7 ml Aorta at Sinotubular Diameter 2.4 cm M-MODE LA Ao Ratio MM 3.1 AV Cusp Separation MM 1.7 cm DOPPLER AV Peak Velocity 127.0 cm/s LVOT Peak Velocity 113.0 cm/s AV Area Cont Eq vti 3.6 cm squared AV Area Cont Eq pk 3.4 cm squared MV Peak Velocity 130.0 cm/s MV Area PHT 5.6 cm squared Mitral E to A Ratio 0.9 TR Peak Velocity 107.0 cm/s TR Peak Gradient 4.6 mmHg TV Peak E Velocity 82.0 cm/s FINDINGS Left Ventricle Normal left ventricular size, systolic function and wall thickness, with no regional wall motion abnormalities. Left ventricular ejection fraction is estimated at 55 %. Grade I/IV diastolic dysfunction (abnormal relaxation filling pattern), normal to mildly elevated filling pressures. Right Ventricle The right ventricle is normal in size and function. Right Atrium The right atrium is normal in size. Left Atrium The left atrium is normal in size. Mitral Valve Moderately thickened mitral valve. No mitral valve stenosis. Trace mitral valve regurgitation. Moderate mitral annular calcification. Aortic Valve Structurally normal aortic valve without significant sclerosis or stenosis. There is no aortic regurgitation. Tricuspid Valve Tricuspid valve not well visualized. Pulmonic Valve Pulmonic valve not well visualized. Pericardium Normal pericardium without effusion. Aorta Normal ascending aorta dimension. IVC Inferior vena cava not visualized. CONCLUSIONS Please note that due to suboptimal image quality it is a difficult exam to interpret Normal left ventricular size, systolic function and wall thickness, with no regional wall motion abnormalities. Left ventricular ejection fraction is estimated at 55 %. Grade I/IV diastolic dysfunction (abnormal relaxation filling pattern), normal to mildly elevated filling pressures. Moderately thickened mitral valve. No mitral valve stenosis. Trace mitral valve regurgitation. Moderate mitral annular calcification. There is no pericardial effusion. Coleen Ahumada MD (Electronically Signed) Final Date: 02 January 2025 21:41 S
--- NOTE | 2025-01-02 14:43 | USR_ITS ---
PROCEDURE INFORMATION: Exam: US Duplex Bilateral Lower Extremity Arteries Exam date and time: 01/02/2025 11:28 AM Age: 64 years old Clinical indication: Condition or disease; Peripheral vascular disease; Additional info: Blle wounds, did liver at 5:00 pm. PT refused further testing tonight. Legs just wrapped TECHNIQUE: Imaging protocol: Real-time ultrasound scan of the arteries of the bilateral lower extremities with 2-D chadwick scale, color Doppler flow and spectral waveform analysis. Images documented and saved. COMPARISON: [place] [id number] 01/01/2025 8:48 AM FINDINGS: Limitations: Difficult study due to patient body habitus and limited mobility. ABIs unable to be obtained due to ulcerations. Limited evaluation of the posterior tibial and dorsalis pedis arteries due to extensive bandaging. Right common femoral artery: No occlusion or significant stenosis. Normal waveform. Peak systolic velocity 122 cm/sec. Right superficial femoral artery: No occlusion or significant stenosis. Normal waveform. Peak systolic velocity 100-133 cm/sec. Right popliteal artery: No occlusion or significant stenosis. Normal waveform. Peak systolic velocity 85 cm/sec. Right calf/foot arteries: No occlusion in the visualized arteries. Monophasic waveform in the posterior tibial artery with peak systolic velocity 30 cm/sec. Monophasic waveform in the dorsalis pedis artery with peak systolic velocity 23 cm/sec. Left common femoral artery: No occlusion or significant stenosis. Normal waveform. Peak systolic velocity 126 cm/sec. Left superficial femoral artery: No occlusion or significant stenosis. Normal waveform. Peak systolic velocity 90-159 cm/sec. Left popliteal artery: No occlusion or significant stenosis. Normal waveform. Peak systolic velocity 85 cm/sec. Left calf/foot arteries: No occlusion in the visualized arteries. Monophasic waveform in the posterior tibial artery with peak systolic velocity 18 cm/sec. Dorsalis pedis artery is patent with peak systolic velocity 61 cm/sec. US/[place] [id number] IMPRESSION: 1. Study limitations as above. 2. Monophasic waveforms with decreased velocities in the right infrapopliteal arteries suggestive of at least moderate stenosis. 3. Monophasic waveform in the left posterior tibial artery with decreased velocity also suggestive of at least moderate stenosis. 4. ABIs unable to be obtained due to ulcerations.
--- NOTE | 2025-01-02 14:46 | US_ITS ---
WS: [id number] ULTRASOUND RENAL TECHNIQUE: Ultrasound examination of both kidneys. CLINICAL INFORMATION: CHINTAN COMPARISON: None. FINDINGS: RIGHT: Right kidney is normal in size and appearance. Echogenicity: Normal. Cortical thickness: 1.6 cm; Normal. Hydronephrosis: None. Perinephric fluid: None. Right kidney measures: 12.2 cm x 7.5 cm x 6.7 cm. LEFT: Left kidney is normal in size and appearance. Echogenicity: Normal. Cortical thickness: 1.8 cm; Normal. Hydronephrosis: None. Perinephric fluid: None. Left kidney measures: 12.7 cm x 5.9 cm x 5.5 cm. Normal visualized aorta. Bladder decompressed US/US renal BI* [id number] IMPRESSION: Technically difficult study due to bowel gas and body habitus 1. No hydronephrosis in either kidney. 2. Bladder is decompressed.
[2025-01-02] MEDS: lactulose oral liq 20 gm/30 mL UDC 200 GM PR ×2 (15:02→20:03)
[2025-01-02] MEDS: cefepime 1,000 mg SDV 1000 MG IVP (15:03)
[2025-01-02 15:15] LABS: ABG PH Result 7.25 (7.35-7.45); Arterial Blood Gas Hematocrit 43.3 % (42-52); Blood Gas Allen Test Pos; Blood Gas Operator Identificat CAK; Blood Gas Sample Site Radial, right; Blood Gas Sample Type Arterial; HCO3 ABG 34.1 mmol/L (22-26); Oxygen Device BIPAP; PO2 ABG 75.3 mmHg (80.0-100.0); PO2 FiO2 Ratio Arterial Blood 150
[2025-01-02 15:17] LABS: ABG PCO2 78.3 mmHg (35-45)
[2025-01-02 15:24] LABS: Partial Thromboplastin Time 71.2 SECONDS (23.9-36.7)
[2025-01-02 16:48] LABS: Ammonia 108 umol/L (16-60)
[2025-01-02 16:49] LABS: Albumin Level 2.9 g/dL (3.5-5.2); Alkaline Phosphatase 135 U/L (40-130); Blood Urea Nitrogen 44 mg/dL (8-23); Calcium 8.3 mg/dL (8.5-10.5); Carbon Dioxide 29 mmol/L (22-29); Chloride 102 mmol/L (98-107); Creatinine Clr Calc Pharmacy 66.2017; Globulin 3.1 g/dL (1.3-4.6); Glomerular Filtration Rate 43.5 mL/min (90-130); Glucose 309 mg/dL (65-115); Osmolality Calculated 317 mOsm/kg (285-295); Sodium 142 mmol/L (136-145); Total Bilirubin 0.3 mg/dL (0.15-1.2)
[2025-01-02 17:00] LABS: Alanine Aminotransferase 2463 U/L (0-41)
[2025-01-02 17:13] LABS: Aspartate Amino Transferase 1644 U/L (0-40)
[2025-01-02 17:15] LABS: Anion Gap 16.5 (5-19); Potassium 5.5 mmol/L (3.5-5.1)
[2025-01-02 17:55] LABS: Glucose Point of Care 298 mg/dL (70-110)
[2025-01-02 21:10] LABS: Glucose Point of Care 306 mg/dL (70-110)
--- NOTE | 2025-01-02 21:41 | PC.NURSE ---
Patient continues to pull at lines this shift, flailing about in bed, and pulling bipap off. Attempts at reapplying bipap, providing oral care, hiding lines and padding bed rails all unsuccessful so far. Provider notified.
[2025-01-02 22:41] LABS: Glucose Point of Care 289 mg/dL (70-110)
[2025-01-03] VITALS (108 sets, daily range): BP systolic 140–188; BP diastolic 66–100; PULSE 87–118; RESP 6–29; TEMP 36.4–36.6; O2SAT 86–95; BMI 45.0
[2025-01-03 00:44] LABS: Potassium 4.3 mmol/L (3.5-5.1)
[2025-01-03 00:47] LABS: Partial Thromboplastin Time 89.1 SECONDS (23.9-36.7)
--- NOTE | 2025-01-03 01:05 | PC.NURSE ---
PTT resulted at 0057. Titrated per protocol. Order placed to redraw PTT per policy in 6 hours. See Orders. Next PTT due at 0700.
[2025-01-03] MEDS: cefepime 1,000 mg SDV 1000 MG IVP ×2 (01:51→16:18)
[2025-01-03] MEDS: heparin drip 25,000 UNIT/500 ML PREMIX 38 UNIT IV ×2 (02:03→16:17)
--- NOTE | 2025-01-03 02:49 | PC.NURSE ---
Patient conts to pull at lines, monitors, and bipap. Also continues to flail body about in bed. Not cooperative and resistant to cares.
[2025-01-03] MEDS: ipratropium-albuterol 3 mL Neb INHALATION ×4 (02:57→19:45)
[2025-01-03 04:20] LABS: Basophils % 0.1 %; Lymphocytes # 0.6 10^3/uL (0.8-4.8); Lymphocytes % 5.5 %; Mean Corpuscular HGB Conc 29.3 g/dL (30-55); Mean Corpuscular Hemoglobin 26.7 pg (27-33); Mean Corpuscular Volume 90.9 fl (82-101); Mean Platelet Volume 11.1 fL (7.4-10.4); Monocytes # 0.7 10^3/uL (0.2-0.9); Neutrophils # 9.54 10^3/uL (1.8-7.7); Neutrophils % 87.8 %; Nucleated Red Blood Cells % 0.3 %; Platelet Count 254 10^3/cmm (157-399); Red Blood Count 5.06 10^6/uL (3.85-5.65); Red Cell Distribution Width 20.3 % (12.1-15.1); White Blood Count 10.86 10^3/uL (3.29-11.43)
[2025-01-03 04:48] LABS: Albumin Level 2.9 g/dL (3.5-5.2); Alkaline Phosphatase 143 U/L (40-130); Anion Gap 13.4 (5-19); Aspartate Amino Transferase 607 U/L (0-40); Blood Urea Nitrogen 51 mg/dL (8-23); Carbon Dioxide 33 mmol/L (22-29); Chloride 103 mmol/L (98-107); Glomerular Filtration Rate 60.6 mL/min (90-130); Glucose 353 mg/dL (65-115); Osmolality Calculated 328 mOsm/kg (285-295); Potassium 4.4 mmol/L (3.5-5.1); Sodium 145 mmol/L (136-145); Total Bilirubin 0.4 mg/dL (0.15-1.2); Total Protein 5.9 g/dL (6.6-8.7)
[2025-01-03] MEDS: FUROsemide 10 mg/mL SDV 4mL 40 MG IVP ×2 (04:55→16:18)
[2025-01-03 05:06] LABS: Alanine Aminotransferase 2008 U/L (0-41)
[2025-01-03 07:22] LABS: Partial Thromboplastin Time 60.1 SECONDS (23.9-36.7)
[2025-01-03 09:36] LABS: Glucose Point of Care 336 mg/dL (70-110)
[2025-01-03] MEDS: insulin lispro 100 unit/1 mL SUBCUT ×4 (09:36→21:54)
[2025-01-03] MEDS: buPROPion XL (24 HR) 300 mg Tablet PO (09:36)
[2025-01-03] MEDS: nicotine 21 mg Patch 2 PATCH TRANSDERMA (09:36)
[2025-01-03] MEDS: methylPREDNISolone sod succ 40 mg/mL INJ 30 MG IVP ×3 (09:36→22:35)
[2025-01-03] MEDS: lactulose oral liq 20 gm/30 mL UDC PO ×3 (09:37→21:22)
[2025-01-03] MEDS: insulin glargine 100 units/1 mL 5 UNIT SUBCUT (10:34)
[2025-01-03 11:55] LABS: Glucose Point of Care 344 mg/dL (70-110)
[2025-01-03] MEDS: linezolid premix 600 MG/300 ML PREMIX 300 MG IV ×2 (12:00→22:34)
[2025-01-03 16:49] LABS: Partial Thromboplastin Time 53.8 SECONDS (23.9-36.7)
[2025-01-03 17:30] LABS: Glucose Point of Care 304 mg/dL (70-110)
--- NOTE | 2025-01-03 18:14 | P.PN_ITS ---
Subjective 2 Subjective: Today he is feeling better. He is more alert. Does appear to be somewhat confused. Pulling on his nasal cannula. Vitals/I&O/Wt Last Vital Signs Temp 97.8 F 01/03/25 04:00 Pulse 102 H 01/03/25 17:30 Resp 20 H 01/03/25 17:30 BP 172/83 01/03/25 17:30 Pulse Ox 90 01/03/25 17:30 O2 Del Method Nasal Cannula 01/03/25 17:30 O2 Flow Rate 5 01/03/25 17:30 FiO2 45 01/03/25 13:13 01/03/25 01/03/25 01/03/25 06:59 14:59 22:59 Intake Total 744.267 / 1637.200 212.167 / 212.167 315.700 / 527.867 Output Total 2500 / 3150 1000 / 1000 1550 / 2550 Balance -1755.733 / -1512.800 -787.833 / -787.833 -1234.300 / -2022.133 Weight last 48 hrs Weight 146.4 kg Weight 144.7 kg Physical Exam 2 Const: COMMON NORMALS: alert GENERAL APPEARANCE: cooperative O RIENTATION/CONSCIOUSNESS: Yes awake HENMT: COMMON NORMALS: oropharynx normal Neck/C-Spine: COMMON NORMALS: no JVD Resp: COMMON NORMALS: normal respiratory effort AUSCULTATION: diminished lung sounds Cardio: COMMON NORMALS: no JVD, regular rhythm, S1 normal heart sound present, S2 normal heart sound present and No murmurs present (Cardio) RHYTHM: regular rhythm HEART SOUNDS: S1 normal heart sound present and S2 normal heart sound present GI: COMMON NORMALS: Normal to inspection, nondistended, normoactive bowel sounds present, Soft to palpation and non-tender PALPATION: Yes Soft to palpation Extremity: OTHER: Legs red, swollen, weeping with ulcers (noted on left leg distal third of tibia and posteriorly), both legs swollen (3+), multiple abrasions on right arm, bruise on left elbow. Linear abrasions healing with granulation tissue without surrounding redness on posterior right arm extending from the triceps all the way to the wrist. With noted some shrinking of lower extremities. Wounds covered with dressing and gauze. Neuro: COMMON NORMALS: moves all extremities SENSORIUM/ORIENTATION: Yes alert Urinary Catheter Management: Ayala: Cath Placed During This Visit: yes Reason for Continuing Indwelling Catheter: Accurate Measurement of Urinary Output in Critically Ill Patients Urinary Catheter Date of Insertion: 01/02/25 Urinary Catheter Time of Insertion: 09:55 Data 01/03/25 04:12 01/03/25 04:12 A&P Assessment and plan (1) Respiratory failure with hypoxia and hypercapnia: With overall improvement in encephalopathy, more alert, or, with some confusion, pulling on oxygen. Does not appear to be fully oriented. Reports feeling better. Denies pain or discomfort. Discussed with respiratory. Noted and negative balance with diuresis. Some strengthening of lower extremities. Improvement in gas exchange. Continue treatment of CHF exacerbation, COPD exacerbation. Still intermittently requiring BiPAP support, for now continue treatment in intensive care unit due to still precarious condition. Continue BiPAP as needed. Discussed with nursing. Continue IV Lasix twice daily, monitor for risk of electrolyte deficiency, kidney injury, hypotension. Treat hypertension, added hydralazine 25 mg 4 times daily. 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 Monitor for risk of worsening heart failure with hydralazine. Continue diuretics. Reviewed echocardiogram. Reviewed intake and output. Continue treatment of acute CHF as well as acute COPD. For COPD exacerbation continue IV steroids, and risk of gastritis, encephalopathy, hypertension, hyperglycemia. Continue breathing treatments. On empiric antibiotics for continued treatment of cellulitis. Continue linezolid and cefepime for now. Question of possible PE not excluded, D-dimer abnormal, although may be in the setting of CHINTAN and leg wounds, lower extremity duplex has been performed and without DVT. Difficult to perform definitive imaging at this time as he is having renal dysfunction, and anticipated technical difficulties currently with VQ scan. Will empirically change to heparin drip for now without bolus, monitor PTT with risk of bleeding, until more definitive, monitor for risk of assessment can be performed. Continue oxygen support, target saturation 88-92%, avoid hyperoxia. Discussed with special education case manager. (2) CHINTAN (acute kidney injury): Reviewed BUN, creatinine, potassium, bicarb, anion gap. Noted with improvement. Continue to monitor intake and output. Repeat chemistry. Unclear etiology of CHINTAN, possibly secondary to NSAID use as he does take a lot of ibuprofen. Discussed with him to avoid NSAIDs. Will assess kidney ultrasound. Reassess renal function. Monitor intake and output, although this is very difficult due to his incontinence. He declines Ayala unless he is sedated. Reviewed kidney ultrasound. No hydronephrosis. Bladder decompressed. (3) Hyperkalemia: Hyperkalemia with resolution so far. Reassess potassium. Continue diuretic. (4) Transaminitis: Noted gradually improving with treatment of CHF. Reviewed echocardiogram, RV function unremarkable. Reviewed ammonia. Continue lactulose for liver cirrhosis and acute metabolic encephalopathy. (5) CHF (congestive heart failure): Continue IV diuretic as above. Monitor intake and output. Repeat chemistry, monitor for risk of electrolyte deficiency, CHINTAN. Severe acute congestive heart failure, type unknown, with respiratory failure with hypoxia and hypercapnia. Review pending TTE. Continue IV diuresis, monitor for electrolyte deficiency, worsening renal function. Reviewed troponin series, without any further significant rise, mild decrease. Discussed with his son. (6) Troponin level elevated: Without chest pain or pressure. Reviewed TTE. As above. No chest pain. Does have history of congestive heart failure type unknown. Complete troponin EKG series. Initiated heparin drip as above. Will give a dose of aspirin, monitor for risk of bleeding. Monitor PTT. Continue anticoagulation for now. Will benefit from subsequent recertification. (7) Cellulitis: Improving cellulitis. Afebrile, without leukocytosis. Improving erythema of lower extremities. Continue linezolid and cefepime given worsening renal function today with possible contribution of antibiotic combination. Continue wound care. (8) Lower extremity ulceration: Continue wound care. Reviewed arterial Doppler ultrasound, noted monophasic flow below the knees, concern for at least moderate arterial disease, would avoid compression dressings with concern of causing ischemia. Discussed with nursing. Continue with alginate dressing, elevate extremities. Treat congestive heart failure exacerbation, severe edema of lower extremities with weeping, ulcerations. Continue IV diuresis as above. E (9) Chronic stasis dermatitis: (10) Diabetes mellitus: Reviewed POC glucose, noted persistently hyperglycemic. Add Lantus 5 units daily. Sliding scale insulin. Consistent carb diet. Monitor POC glucose. (11) Heavy cigarette smoker: Discussed smoking cessation for 4 minutes. He is not ready to quit. He smokes upwards of 3 packs/day. Discussed risks of cardiovascular complications, [place], stroke, lung disease, cancer, other, he understands, he is not ready to quit. He is agreeable to nicotine replacement in the hospital. Plan Encephalopathy: More alert today. Switch to oral lactulose. Acute metabolic encephalopathy secondary to worsening renal failure, liver dysfunction, underlying cirrhosis, hyperammonemia, as well as hypercapnic encephalopathy with respiratory acidosis. Further assessment and treatment as above. History of prostate cancer status post prostatectomy with urinary incontinence. Edentulous: Mechanical soft diet. PDMP PDMP Reviewed: Not Reviewed Attestations 2 Medical Necessity Statement*: Continue admission for assessment management of respiratory failure, acute CHF, COPD exacerbation, acute encephalopathy, additional comorbidities as above and gentleman with underlying diabetes, new diagnosis of liver cirrhosis. Coding Level of Care Code Critical Care >/= 30 minutes Critical care time (in minutes): 35 The high probability of a clinically significant, sudden or life threatening deterioration, as referenced in this documentation, required my full and direct attention, intervention and personal management. The critical care time shown is in addition to time spent performing any reported separately billable procedures and includes the following: [x] Data and vital sign review and interpretation [x ] Patient assessment, examination and intervention [x] Medication orders and management [x] Patient/Family updates as able [x] Care Coordination and Documentation. Diagnoses Respiratory failure with hypoxia and hypercapnia J96.91; J96.92 CHINTAN (acute kidney injury) N17.9 Hyperkalemia E87.5 Transaminitis R74.01 CHF (congestive heart failure) I50.9 Troponin level elevated R79.89 Cellulitis L03.90 Lower extremity ulceration L97.909 Chronic stasis dermatitis I87.2 Diabetes mellitus E11.9 Heavy cigarette smoker F17.210
--- NOTE | 2025-01-03 20:57 | PC.NURSE ---
Precedex: Pt unable to tolerate bipap, Dr. Fuller notified. New order for precedex gtt per Dr. Fuller.
[2025-01-03] MEDS: hyDRALAzine 25 mg Tablet PO (21:22)
[2025-01-03] MEDS: dexmedeTOMIDine 0.9 % NaCL 400 MCG/100 ML PREMIX IV (21:22)
[2025-01-03 21:50] LABS: Glucose Point of Care 298 mg/dL (70-110)
[2025-01-04] VITALS (56 sets, daily range): BP systolic 132–208; BP diastolic 70–138; PULSE 79–104; RESP 10–29; TEMP 36.3–38.1; O2SAT 88–98
[2025-01-04] MEDS: ipratropium-albuterol 3 mL Neb INHALATION ×4 (01:16→20:34)
[2025-01-04 01:26] LABS: Partial Thromboplastin Time 80.1 SECONDS (23.9-36.7)
[2025-01-04] MEDS: dexmedeTOMIDine 0.9 % NaCL 400 MCG/100 ML PREMIX 25.62 MCG IV (02:03)
[2025-01-04] MEDS: cefepime 1,000 mg SDV 1000 MG IVP (02:05)
[2025-01-04] MEDS: FUROsemide 10 mg/mL SDV 4mL 40 MG IVP ×2 (03:26→17:03)
[2025-01-04 04:34] LABS: Ammonia 25 umol/L (16-60)
[2025-01-04] MEDS: heparin drip 25,000 UNIT/500 ML PREMIX 38 UNIT IV (04:57)
[2025-01-04 04:59] LABS: Basophils % 0.1 %; Hematocrit 47.8 % (37-53); Lymphocytes # 0.5 10^3/uL (0.8-4.8); Lymphocytes % 3.9 %; Mean Corpuscular HGB Conc 30.1 g/dL (30-55); Mean Corpuscular Hemoglobin 26.9 pg (27-33); Mean Corpuscular Volume 89.3 fl (82-101); Mean Platelet Volume 11.4 fL (7.4-10.4); Monocytes # 0.9 10^3/uL (0.2-0.9); Monocytes % 6.8 %; Neutrophils # 12.09 10^3/uL (1.8-7.7); Neutrophils % 88.7 %; Nucleated Red Blood Cells % 0.2 %; Platelet Count 218 10^3/cmm (157-399); Red Blood Count 5.35 10^6/uL (3.85-5.65); Red Cell Distribution Width 20.6 % (12.1-15.1); White Blood Count 13.62 10^3/uL (3.29-11.43)
[2025-01-04] MEDS: lisinopril 20 mg Tablet PO ×2 (05:34→18:04)
[2025-01-04] MEDS: buPROPion XL (24 HR) 300 mg Tablet PO (05:34)
[2025-01-04] MEDS: methylPREDNISolone sod succ 40 mg/mL INJ 30 MG IVP (05:34)
[2025-01-04 05:39] LABS: Albumin Level 2.9 g/dL (3.5-5.2); Alkaline Phosphatase 145 U/L (40-130); Anion Gap 13.7 (5-19); Aspartate Amino Transferase 300 U/L (0-40); Blood Urea Nitrogen 38 mg/dL (8-23); Calcium 9.2 mg/dL (8.5-10.5); Carbon Dioxide 36 mmol/L (22-29); Chloride 105 mmol/L (98-107); Creatinine Clr Calc Pharmacy 133.2771; Globulin 3.1 g/dL (1.3-4.6); Glomerular Filtration Rate 134.8 mL/min (90-130); Glucose 362 mg/dL (65-115); Osmolality Calculated 336 mOsm/kg (285-295); Potassium 3.7 mmol/L (3.5-5.1); Sodium 151 mmol/L (136-145); Total Bilirubin 0.7 mg/dL (0.15-1.2)
[2025-01-04 05:55] LABS: Alanine Aminotransferase 1424 U/L (0-41)
[2025-01-04] MEDS: dexmedeTOMIDine 0.9 % NaCL 400 MCG/100 ML PREMIX 10.98 MCG IV (07:09)
[2025-01-04 08:08] LABS: Glucose Point of Care 382 mg/dL (70-110)
[2025-01-04 08:12] LABS: Partial Thromboplastin Time 84.3 SECONDS (23.9-36.7)
--- NOTE | 2025-01-04 08:15 | PC.NURSE ---
Per Dr. Mcnulty, Precedex drip to be stopped.
--- NOTE | 2025-01-04 08:17 | CT_ITS ---
WS: [id number] CT HEAD TECHNIQUE: Noncontrast CT of the head obtained from the skullbase to the vertex. CLINICAL INFORMATION: AMS COMPARISON: None. DLP: 16.[address] scans at [facility] use at least one of these dose optimization techniques: automated exposure control; mA and/or kV adjustment per patient size (includes targeted exams where dose is matched to clinical indication); or iterative reconstruction. FINDINGS: No evidence of intracranial hemorrhage or mass effect. Ventricular system and basal cisterns are patent. Mild small vessel changes with mild parenchymal volume loss. No extra-axial fluid collections. No evidence of mass or mass effect. Paranasal sinuses and mastoid air cells are well aerated. .Normal visualized soft tissues. CT/CT head wo con* [id number] IMPRESSION: 1. No evidence of intracranial hemorrhage or mass effect. 2. No acute intracranial findings.
--- NOTE | 2025-01-04 09:03 | CT_ITS ---
WS: [id number] CT CHEST, ABDOMEN, AND PELVIS TECHNIQUE: Noncontrast CT of the chest, abdomen, and pelvis with coronal and sagittal reformatted images. CLINICAL INFORMATION: Abdominal breathing COMPARISON: None. DLP: 16.[address] scans at [facility] use at least one of these dose optimization techniques: automated exposure control; mA and/or kV adjustment per patient size (includes targeted exams where dose is matched to clinical indication); or iterative reconstruction. CT CHEST: Bilateral perihilar groundglass infiltrates. Small RIGHT greater than LEFT pleural effusions with compressive atelectasis in the lung bases. Aortic calcification. Coronary calcification. No mediastinal or hilar lymphadenopathy. No axillary lymphadenopathy. Moderate thoracic kyphosis. Ankylosis thoracic spine. Cardiomegaly. CT ABDOMEN AND PELVIS: Hepatomegaly. Small esophageal hiatal hernia. Pancreas not well visualized due to extensive beam hardening artifact in the mid abdomen. Adrenal glands not well visualized. No hydronephrosis in either kidney. Diffuse body wall anasarca. Dense rectal constipation. Sigmoid diverticulosis. Ayala catheter. Small fat- containing umbilical hernia. Normal caliber abdominal aorta. Aortic calcification. Grade 1 anterolisthesis L3 on L4 with chronic spondylolysis and grade 1 anterolisthesis. Disc base narrowing at this level with degenerative en dplate changes. CT/[place] [id number] IMPRESSION: Some images are limited in the abdomen and pelvis due to beam harde cristhian artifact from arms down positioning and patient cooperation 1. Bilateral perihilar groundglass infiltrates. 2. Small RIGHT greater than LEFT pleural effusions with compressive atelectasi s at the lung bases. 3. Hepatomegaly. 4. Ayala catheter. 5. Dense rectal constipation. 6. No hydronephrosis in either kidney. 7. No other acute abdominal findings considering limitations.
--- NOTE | 2025-01-04 09:36 | PC.NURSE ---
Patient was in CT scan when the power went off three times. quality control lab tech told this nurse it would take 30 minutes to restart machine. Patient had to take patient back to room and wait until quality control lab tech called this nurse to take patient back.
[2025-01-04] MEDS: insulin lispro 100 unit/1 mL SUBCUT ×4 (09:49→20:46)
[2025-01-04] MEDS: hyDRALAzine 25 mg Tablet PO ×3 (09:50→20:46)
[2025-01-04] MEDS: insulin glargine 100 units/1 mL 5 UNIT SUBCUT ×2 (09:50→13:05)
[2025-01-04] MEDS: nicotine 21 mg Patch 2 PATCH TRANSDERMA (09:50)
[2025-01-04] MEDS: lactulose oral liq 20 gm/30 mL UDC PO ×3 (09:50→20:46)
[2025-01-04] MEDS: linezolid premix 600 MG/300 ML PREMIX 300 MG IV ×2 (09:51→22:51)
--- NOTE | 2025-01-04 11:35 | P.PN_ITS ---
Subjective 2 Subjective: Appears confused, fidgeting with his gown, subdued, but opens eyes when his name is mentioned does not interact or follow directions. Vitals/I&O/Wt Last Vital Signs Temp 100.4 F H 01/04/25 11:00 Pulse 104 H 01/04/25 11:00 Resp 29 H 01/04/25 11:00 BP 132/81 01/04/25 11:00 Pulse Ox 88 L 01/04/25 11:00 O2 Del Method Nasal Cannula 01/04/25 11:00 O2 Flow Rate 5 01/04/25 11:00 FiO2 45 01/04/25 08:21 01/03/25 01/04/25 01/04/25 22:59 06:59 14:59 Intake Total 862.654 / 1074.821 965.179 / 2040.000 144.027 / 144.027 Output Total 3300 / 4300 1850 / 6150 Balance -2437.346 / -3225.179 -884.821 / -4110.000 144.027 / 144.027 Weight last 48 hrs Weight 138.1 kg Weight 146.4 kg Physical Exam 2 HENMT: COMMON NORMALS: oropharynx normal Resp: COMMON NORMALS: normal respiratory effort AUSCULTATION: diminished lung sounds Cardio: COMMON NORMALS: regular rhythm, S1 normal heart sound present, S2 normal heart sound present and No murmurs present (Cardio) RHYTHM: regular rhythm HEART SOUNDS: S1 normal heart sound present and S2 normal heart sound present GI: COMMON NORMALS: Normal to inspection, nondistended, normoactive bowel sounds present, Soft to palpation and non-tender PALPATION: Yes Soft to palpation Extremity: OTHER: Legs swollen, with resolving weeping, improving swelling, noted wrinkling. Erythema improving. Ulcers (noted on left leg distal third of tibia and posteriorly), both legs swollen (3+), multiple abrasions on right arm, bruise on left elbow. Linear abrasions healing with granulation tissue without surrounding redness on posterior right arm extending from the triceps all the way to the wrist. With noted some shrinking of lower extremities. Wounds covered with dressing and gauze. Neuro: COMMON NORMALS: moves all extremities OTHER: Asterixis Urinary Catheter Management: Ayala: Cath Placed During This Visit: yes Reason for Continuing Indwelling Catheter: Accurate Measurement of Urinary Output in Critically Ill Patients Urinary Catheter Date of Insertion: 01/02/25 Urinary Catheter Time of Insertion: 09:55 Data 01/04/25 04:44 01/04/25 04:44 A&P Assessment and plan (1) Respiratory failure with hypoxia and hypercapnia: Required BiPAP overnight. Air entry overall with some improvement today. However, with persistent/worsening encephalopathy. Overnight had to be started on Precedex. This morning somewhat lethargic, confused. Precedex stopped to allow him to wake up more. Has been off BiPAP. Continue nasal cannula 5 L, maintain sats in the range of 88-92%. Additional assessment obtained with CT chest. With persistence of follow-up with antibiotic changed from cefepime to meropenem. Reviewed vitals, CBC, CMP, echocardiogram. Noted in negative balance with diuresis. Some strengthening of lower extremities. Improvement in gas exchange. Continue treatment of CHF exacerbation, COPD exacerbation. Still intermittently requiring BiPAP support, for now continue treatment in intensive care unit due to still precarious condition. Continue BiPAP as needed. Discussed with nursing. Continue IV Lasix twice daily, monitor for risk of electrolyte deficiency, kidney injury, hypotension. Treat hypertension, added hydralazine 25 mg 4 times daily. 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 Monitor for risk of worsening heart failure with hydralazine. Continue diuretics. Reviewed echocardiogram. Reviewed intake and output. Continue treatment of acute CHF as well as acute COPD. For COPD exacerbation hold IV steroids due to persistent/worsening encephalopathy, switch to inhaled steroids for now. Continue breathing treatments. On empiric antibiotics for continued treatment of cellulitis. Linezolid and meropenem. Question of possible PE not excluded, D-dimer abnormal, although may be in the setting of CHINTAN and leg wounds, lower extremity duplex has been performed and without DVT. Difficult to perform definitive imaging at this time as he is having renal dysfunction, and anticipated technical difficulties currently with VQ scan. Will empirically change to heparin drip for now without bolus, monitor PTT with risk of bleeding, until more definitive, monitor for risk of assessment can be performed. Continue oxygen support, target saturation 88-92%, avoid hyperoxia. Discussed with adult protective caseworkermanager art and his son. Will further benefit from assessment by PT once able to cooperate given already previous challenges with ambulation before the acute illness (2) Metabolic encephalopathy: Acute metabolic encephalopathy. With some improvement yesterday, but again with some worsening overnight. Did get started on Precedex. Overnight on BiPAP. Lethargic this morning, awaken briefly. Stopped Precedex. Hold IV corticosteroid, switch to inhaled corticosteroid. Stop cefepime, switch to meropenem. Obtain CT head as well as CT chest and abdomen pelvis with noted leukocytosis, fever 100.4. He has not had any headache, neck stiffness, with oral asterixis, suspected metabolic encephalopathy. Possible hypertensive encephalopathy with noted elevated blood pressure up to 171/138 this morning. Had been started on hydralazine and was resumed on lisinopril overnight. Monitor for risk of recurrent kidney injury with resumption of lisinopril with recent CHINTAN. Added hydralazine as needed IV push in case of persistent blood pressure elevation. On recheck is showing to be improving. With some noted hypernatremia, sodium up to 151. Will give low rate d5, reassess. Ammonia noted with improvement. (3) CHINTAN (acute kidney injury): Reviewed BUN, creatinine, potassium, bicarb, anion gap. Noted with improvement. Continue to monitor intake and output. Repeat chemistry. Unclear etiology of CHINTAN, possibly secondary to NSAID use as he does take a lot of ibuprofen. Discussed with him to avoid NSAIDs. Will assess kidney ultrasound. Reassess renal function. Reviewed kidney ultrasound. No hydronephrosis. Bladder decompressed. (4) Hyperkalemia: Hyperkalemia with resolution so far. Reassess potassium. Continue diuretic. (5) Transaminitis: I reviewed CMP, gradually improving. Noted gradually improving with treatment of CHF. Reviewed echocardiogram, RV function unremarkable. Reviewed ammonia. Continue lactulose for liver cirrhosis and acute metabolic encephalopathy. (6) CHF (congestive heart failure): Continue IV diuretic as above. Monitor intake and output. Repeat chemistry, monitor for risk of electrolyte deficiency, CHINTAN. Severe acute congestive heart failure, type unknown, with respiratory failure with hypoxia and hypercapnia. Review pending TTE. Continue IV diuresis, monitor for electrolyte deficiency, worsening renal function. Reviewed troponin series, without any further significant rise, mild decrease. Discussed with his son. (7) Troponin level elevated: Without chest pain or pressure. Reviewed TTE. As above. No chest pain. Does have history of congestive heart failure type unknown. Complete troponin EKG series. Initiated heparin drip as above. Will give a dose of aspirin, monitor for risk of bleeding. Monitor PTT. Continue anticoagulation for now. Will benefit from subsequent recertification. (8) Cellulitis: Improving cellulitis. Afebrile, without leukocytosis. Improving erythema of lower extremities. Continue linezolid and cefepime given worsening renal function today with possible contribution of antibiotic combination. Continue wound care. (9) Lower extremity ulceration: Continue wound care. Gradually improving. Improving edema. Wrinkling. Decreasing weeping. Improving erythema and cellulitis. Reviewed arterial Doppler ultrasound, noted monophasic flow below the knees, concern for at least moderate arterial disease, would avoid compression dressings with concern of causing ischemia. Discussed with nursing. Continue with alginate dressing, elevate extremities. Treat congestive heart failure exacerbation, severe edema of lower extremities with weeping, ulcerations. Continue IV diuresis as above. E (10) Chronic stasis dermatitis: (11) Diabetes mellitus: Reviewed POC glucose, noted persistently hyperglycemic. Crease Lantus to 10 units daily. Sliding scale insulin. Consistent carb diet. Monitor POC glucose. (12) Heavy cigarette smoker: Discussed smoking cessation for 4 minutes. He is not ready to quit. He smokes upwards of 3 packs/day. Discussed risks of cardiovascular complications, [place], stroke, lung disease, cancer, other, he understands, he is not ready to quit. He is agreeable to nicotine replacement in the hospital. Plan History of prostate cancer status post prostatectomy with urinary incontinence. Edentulous: Mechanical soft diet. PDMP PDMP Reviewed: Not Reviewed Attestations 2 Medical Necessity Statement*: Continue admission for assessment management of respiratory failure, acute CHF, encephalopathy, COPD exacerbation, additional comorbidities as above and gentleman with underlying diabetes, new diagnosis of liver cirrhosis. Coding Level of Care Code Critical Care >/= 30 minutes Critical care time (in minutes): 35 The high probability of a clinically significant, sudden or life threatening deterioration, as referenced in this documentation, required my full and direct attention, intervention and personal management. The critical care time shown is in addition to time spent performing any reported separately billable procedures and includes the following: [x] Data and vital sign review and interpretation [x ] Patient assessment, examination and intervention [x] Medication orders and management [x] Patient/Family updates as able [x] Care Coordination and Documentation. Diagnoses Respiratory failure with hypoxia and hypercapnia J96.91; J96.92 Metabolic encephalopathy G93.41 CHINTAN (acute kidney injury) N17.9 Hyperkalemia E87.5 Transaminitis R74.01 CHF (congestive heart failure) I50.9 Troponin level elevated R79.89 Cellulitis L03.90 Lower extremity ulceration L97.909 Chronic stasis dermatitis I87.2 Diabetes mellitus E11.9 Heavy cigarette smoker F17.210
[2025-01-04 12:29] LABS: Glucose Point of Care 364 mg/dL (70-110)
[2025-01-04] MEDS: meropenem 500 mg SDV IVP ×2 (13:01→20:46)
--- NOTE | 2025-01-04 13:22 | PC.OT ---
OT spoke with patient's nurse. He stated that evaluation should be on hold until tomorrow.
[2025-01-04] MEDS: dextrose 5% 1,000 ML 30 ML IV (13:32)
[2025-01-04 15:26] LABS: Partial Thromboplastin Time 90.1 SECONDS (23.9-36.7)
--- NOTE | 2025-01-04 15:29 | PC.NURSE ---
Patient's temp was 100.[address] Mcnulty was contacted and he ordered tylenol suppository for fever.
[2025-01-04] MEDS: acetaminophen 650 mg Supp PR (15:32)
[2025-01-04 16:39] LABS: Adenovirus Not Detected (NOT DETECT); Chlamydia Pneumoniae Not Detected (NOT DETECT); Coronavirus 229E,HKU1,NL63,OC4 Not Detected (NOT DETECT); Human Metapneumovirus Not Detected (NOT DETECT); Human Rhinovirus/Enterovirus Not Detected (NOT DETECT); Influenza A Not Detected (NOT DETECT); Influenza A H1 Not Detected (NOT DETECT); Influenza A H1-2009 Not Detected (NOT DETECT); Influenza A H3 Not Detected (NOT DETECT); Influenza B Not Detected (NOT DETECT); Mycoplasma Pneumoniae Not Detected (NOT DETECT); Parainfluenza Virus Type 1 Not Detected (NOT DETECT); Parainfluenza Virus Type 2 Not Detected (NOT DETECT); Parainfluenza Virus Type 3 Not Detected (NOT DETECT); Parainfluenza Virus Type 4 Not Detected (NOT DETECT); Respiratory Syncytial Virus A Not Detected (NOT DETECT); Respiratory Syncytial Virus B Not Detected (NOT DETECT); SARS-COV-2 Not Detected (NOT DETECT)
[2025-01-04 17:20] LABS: Glucose Point of Care 266 mg/dL (70-110)
[2025-01-04] MEDS: heparin drip 25,000 UNIT/500 ML PREMIX 29 UNIT IV (18:38)
[2025-01-04] MEDS: budesonide 0.5 mg/2 mL Neb INHALATION (20:33)
[2025-01-04 20:47] LABS: Glucose Point of Care 227 mg/dL (70-110)
[2025-01-04 22:24] LABS: Partial Thromboplastin Time 60.7 SECONDS (23.9-36.7)
[2025-01-04] MEDS: dexmedeTOMIDine 0.9 % NaCL 400 MCG/100 ML PREMIX 14.64 MCG IV (22:54)
[2025-01-05] VITALS (55 sets, daily range): BP systolic 107–197; BP diastolic 58–114; PULSE 79–112; RESP 15–28; TEMP 37.6–39.4; O2SAT 81–97
[2025-01-05] MEDS: ipratropium-albuterol 3 mL Neb INHALATION ×4 (01:08→20:35)
[2025-01-05] MEDS: lactulose oral liq 20 gm/30 mL UDC PO ×4 (03:02→20:18)
[2025-01-05] MEDS: meropenem 500 mg SDV IVP ×3 (04:02→20:18)
[2025-01-05] MEDS: FUROsemide 10 mg/mL SDV 4mL 40 MG IVP (04:02)
[2025-01-05 04:11] LABS: Basophils % 0.2 %; Hematocrit 47.7 % (37-53); Lymphocytes # 0.8 10^3/uL (0.8-4.8); Lymphocytes % 4.7 %; Mean Corpuscular HGB Conc 30.4 g/dL (30-55); Mean Corpuscular Volume 88.8 fl (82-101); Mean Platelet Volume 11.6 fL (7.4-10.4); Monocytes # 1.7 10^3/uL (0.2-0.9); Monocytes % 10.3 %; Neutrophils # 13.85 10^3/uL (1.8-7.7); Nucleated Red Blood Cells % 0 %; Platelet Count 198 10^3/cmm (157-399); Red Blood Count 5.37 10^6/uL (3.85-5.65); Red Cell Distribution Width 21.2 % (12.1-15.1); White Blood Count 16.47 10^3/uL (3.29-11.43)
[2025-01-05 04:40] LABS: Albumin Level 2.8 g/dL (3.5-5.2); Alkaline Phosphatase 126 U/L (40-130); Blood Urea Nitrogen 26 mg/dL (8-23); Calcium 8.9 mg/dL (8.5-10.5); Carbon Dioxide 37 mmol/L (22-29); Chloride 104 mmol/L (98-107); Creatinine Clr Calc Pharmacy 129.0118; Globulin 2.9 g/dL (1.3-4.6); Glomerular Filtration Rate 166.4 mL/min (90-130); Glucose 365 mg/dL (65-115); Osmolality Calculated 334 mOsm/kg (285-295); Sodium 152 mmol/L (136-145); Total Protein 5.7 g/dL (6.6-8.7)
[2025-01-05 04:53] LABS: Alanine Aminotransferase 946 U/L (0-41); Anion Gap 14.3 (5-19); Potassium 3.3 mmol/L (3.5-5.1)
[2025-01-05 05:07] LABS: Aspartate Amino Transferase 106 U/L (0-40)
[2025-01-05] MEDS: buPROPion XL (24 HR) 300 mg Tablet PO (05:51)
[2025-01-05] MEDS: dexmedeTOMIDine 0.9 % NaCL 400 MCG/100 ML PREMIX 14.64 MCG IV (06:11)
[2025-01-05 07:20] LABS: Partial Thromboplastin Time 26.7 SECONDS (23.9-36.7)
[2025-01-05 07:40] LABS: Glucose Point of Care 331 mg/dL (70-110)
[2025-01-05] MEDS: budesonide 0.5 mg/2 mL Neb INHALATION ×2 (07:55→20:35)
[2025-01-05] MEDS: hyDRALAzine 25 mg Tablet PO ×4 (08:11→20:18)
[2025-01-05] MEDS: lisinopril 20 mg Tablet PO ×2 (08:12→18:08)
[2025-01-05] MEDS: insulin lispro 100 unit/1 mL SUBCUT ×4 (08:12→20:34)
[2025-01-05] MEDS: nicotine 21 mg Patch 2 PATCH TRANSDERMA (08:12)
[2025-01-05] MEDS: insulin glargine 100 units/1 mL 10 UNIT SUBCUT (08:14)
[2025-01-05] MEDS: heparin 5,000 unit/mL INJ 1 mL IVP ×3 (08:27→20:53)
--- NOTE | 2025-01-05 10:50 | P.PN_ITS ---
Subjective 2 Subjective: He was waking up a bit more this morning, was able to greet his caregivers, during my visit he is waking up to touch and speech, however, does again fall back asleep. Has been somewhat tremulous. Vitals/I&O/Wt Last Vital Signs Temp 99.8 F H 01/05/25 04:00 Pulse 101 H 01/05/25 10:00 Resp 21 H 01/05/25 10:00 BP 130/63 01/05/25 10:00 Pulse Ox 90 01/05/25 10:00 O2 Del Method Nasal Cannula 01/05/25 10:00 O2 Flow Rate 5 01/05/25 10:00 FiO2 5 01/05/25 04:30 01/04/25 01/05/25 01/05/25 22:59 06:59 14:59 Intake Total 725.767 / 354.495 7209.814 / 1976.231 219.917 / 219.917 Output Total 3150 / 3150 4300 / 7450 1550 / 1550 Balance -2424.233 / -2277.583 -3196.186 / -5473.769 -1330.083 / -1330.083 Weight last 48 hrs Weight 138.7 kg Weight 138.1 kg Physical Exam 2 Const: GENERAL APPEARANCE: lethargic ORIENTATION/CONSCIOUSNESS: Yes lethargic HENMT: COMMON NORMALS: oropharynx normal Neck/C-Spine: COMMON NORMALS: no JVD Resp: COMMON NORMALS: normal respiratory effort AUSCULTATION: diminished lung sounds Cardio: COMMON NORMALS: no JVD, regular rhythm, S1 normal heart sound present, S2 normal heart sound present and No murmurs present (Cardio) RHYTHM: regular rhythm HEART SOUNDS: S1 normal heart sound present and S2 normal heart sound present GI: COMMON NORMALS: Normal to inspection, nondistended, normoactive bowel sounds present, Soft to palpation and non-tender PALPATION: Yes Soft to palpation Extremity: OTHER: Legs swollen, with resolving weeping, improving swelling, noted wrinkling. Erythema improving. Ulcers (noted on left leg distal third of tibia and posteriorly), both legs swollen (3+), multiple abrasions on right arm, bruise on left elbow. Linear abrasions healing with granulation tissue without surrounding redness on posterior right arm extending from the triceps all the way to the wrist. With noted some shrinking of lower extremities. Wounds covered with dressing and gauze. Neuro: COMMON NORMALS: moves all extremities SENSORIUM/ORIENTATION: Yes lethargic OTHER: Asterixis Urinary Catheter Management: Ayala: Cath Placed During This Visit: yes Reason for Continuing Indwelling Catheter: Accurate Measurement of Urinary Output in Critically Ill Patients Urinary Catheter Date of Insertion: 01/02/25 Urinary Catheter Time of Insertion: 09:55 Data 01/05/25 03:55 01/05/25 03:55 A&P Assessment and plan (1) Respiratory failure with hypoxia and hypercapnia: Required BiPAP overnight. Air entry overall with some improvement today. Somewhat more alert this morning. However, with persistent/worsening encephalopathy. Again requiring Precedex. Precedex stopped to allow him to wake up more. Off BiPAP. Continue nasal cannula 5 L, maintain sats in the range of 88-92%. Additional assessment obtained with CT chest, reviewed with him and caregivers, noted perihilar groundglass opacities, possible aspiration/not controlling secretions with encephalopathy. Continue meropenem and linezolid. Reviewed vitals, CBC, CMP. Reviewed respiratory viral panel, negative. Noted in negative balance with diuresis. -6.9 L. Held additional diuretic for now as he appears to be in polyuric state with CHINTAN recovery. Still intermittently requiring BiPAP support, for now continue treatment in intensive care unit due to still precarious condition. Continue BiPAP as needed. Discussed with nursing. Reviewed blood pressure, hypertension with improvement. Continue current regimen. 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 Monitor for risk of recurrent CHINTAN with lisinopril. Monitor for risk of worsening heart failure with hydralazine. Continue diuretics. Question of possible PE not excluded, D-dimer abnormal, although may be in the setting of CHINTAN and leg wounds, lower extremity duplex has been performed and without DVT. Difficult to perform definitive imaging at this time as he is having renal dysfunction, and anticipated technical difficulties currently with VQ scan. Will empirically change to heparin drip for now without bolus, monitor PTT with risk of bleeding, until more definitive, monitor for risk of assessment can be performed. Continue oxygen support, target saturation 88-92%, avoid hyperoxia. Discussed with rn case manager hospice and nursing. Discussed w PT. Checking CK but should be okay for assessment. (2) Metabolic encephalopathy: With Possible kratom toxicity and withdrawal, possible gabapentin withdrawal contributing to metabolic encephalopathy, with possible ICU delirium. Resume at gabapentin 600 mg 3 times daily at current time with suspected withdrawal. Monitor for risk of worsening lethargy. With hyponatremia, some worsening today 152, continue low rate D5W infusion. Monitor for risk of worsening fluid overload. Acute metabolic encephalopathy. With some improvement yesterday, but again with some worsening overnight. Did get started on Precedex. Overnight on BiPAP. Lethargic this morning, awaken briefly. Stopped Precedex. Hold IV corticosteroid, switch to inhaled corticosteroid. Stop cefepime, switch to meropenem. Obtain CT head as well as CT chest and abdomen pelvis with noted leukocytosis, fever 100.4. He has not had any headache, neck stiffness, with oral asterixis, suspected metabolic encephalopathy. Possible hypertensive encephalopathy with noted elevated blood pressure up to 171/138 this morning. Had been started on hydralazine and was resumed on lisinopril overnight. Monitor for risk of recurrent kidney injury with resumption of lisinopril with recent CHINTAN. Added hydralazine as needed IV push in case of persistent blood pressure elevation. On recheck is showing to be improving. With some noted hypernatremia, sodium up to 151. Will give low rate d5, reassess. Ammonia noted with improvement. (3) CHINTAN (acute kidney injury): Possible kratom toxicity as he takes close to 20 tablets a day. Appears to be in polyuric state with CHINTAN recovery. Held diuretic. Replace hypokalemia. Reviewed BUN, creatinine, potassium, bicarb, anion gap. Noted with improvement. Continue to monitor intake and output. Repeat chemistry. Unclear etiology of CHINTAN, possibly secondary to NSAID use as he does take a lot of ibuprofen. Discussed with him to avoid NSAIDs. Will assess kidney ultrasound. Reassess renal function. Reviewed kidney ultrasound. No hydronephrosis. Bladder decompressed. (4) Hyperkalemia: Hyperkalemia with resolution so far. Reassess potassium. Continue diuretic. (5) Transaminitis: Possible kratom liver toxicity as he takes close to 20 tablets a day per history obtained from caregivers. I reviewed CMP, gradually improving. Noted gradually improving with treatment of CHF. Reviewed echocardiogram, RV function unremarkable. Reviewed ammonia. Continue lactulose for liver cirrhosis and acute metabolic encephalopathy. (6) CHF (congestive heart failure): Held IV diuretics with polyuric state. Monitor intake and output. Repeat chemistry, monitor for risk of electrolyte deficiency, CHINTAN. Severe acute congestive heart failure, type unknown, with respiratory failure with hypoxia and hypercapnia. Reviewed TTE. Monitor for electrolyte deficiency, worsening renal function. Reviewed troponin series, without any further significant rise, mild decrease. (7) Troponin level elevated: Without chest pain or pressure. Reviewed TTE. As above. No chest pain. Does have history of congestive heart failure type unknown. Will benefit from subsequent risk stratification. (8) Cellulitis: Improving cellulitis. Afebrile, without leukocytosis. Improving erythema of lower extremities. Continue linezolid and cefepime given worsening renal function today with possible contribution of antibiotic combination. Continue wound care. (9) Lower extremity ulceration: Continue wound care. Gradually improving. Improving edema. Wrinkling. Decreasing weeping. Improving erythema and cellulitis. Reviewed arterial Doppler ultrasound, noted monophasic flow below the knees, concern for at least moderate arterial disease, would avoid compression dressings with concern of causing ischemia. Discussed with nursing. Continue with alginate dressing, elevate extremities. Treat congestive heart failure exacerbation, severe edema of lower extremities with weeping, ulcerations. Continue IV diuresis as above. E (10) Chronic stasis dermatitis: (11) Diabetes mellitus: Reviewed POC glucose, noted persistently hyperglycemic. Crease Lantus to 10 units daily. Sliding scale insulin. Consistent carb diet. Monitor POC glucose. (12) Heavy cigarette smoker: Discussed smoking cessation for 4 minutes. He is not ready to quit. He smokes upwards of 3 packs/day. Discussed risks of cardiovascular complications, OK, stroke, lung disease, cancer, other, he understands, he is not ready to quit. He is agreeable to nicotine replacement in the hospital. Plan History of prostate cancer status post prostatectomy with urinary incontinence. Edentulous: Mechanical soft diet. PDMP PDMP Reviewed: Not Reviewed Attestations 2 Medical Necessity Statement*: Continue admission for assessment and management of respiratory failure, acute CHF, encephalopathy, COPD exacerbation, additional comorbidities as above and gentleman with underlying diabetes, new diagnosis of liver cirrhosis. and High MDM includes amount and/or complexity of data reviewed/ordered [ resulted lab(s)/test(s), ordered lab(s)/test(s) and independent historian] and described risk of complication, morbidity or mortality of management as documented Diagnoses Respiratory failure with hypoxia and hypercapnia J96.91; J96.92 Metabolic encephalopathy G93.41 CHINTAN (acute kidney injury) N17.9 Hyperkalemia E87.5 Transaminitis R74.01 CHF (congestive heart failure) I50.9 Troponin level elevated R79.89 Cellulitis L03.90 Lower extremity ulceration L97.909 Chronic stasis dermatitis I87.2 Diabetes mellitus E11.9 Heavy cigarette smoker F17.210
[2025-01-05] MEDS: acetaminophen 325 mg Tablet 650 MG PO ×2 (11:12→13:32)
[2025-01-05] MEDS: linezolid premix 600 MG/300 ML PREMIX 300 MG IV ×2 (11:12→23:06)
[2025-01-05] MEDS: gabapentin 300 mg Capsule 600 MG PO ×3 (11:12→20:18)
[2025-01-05 11:42] LABS: Creatine Phosphokinase 64 U/L (39-308)
[2025-01-05] MEDS: lidocaine 1% 5 ML in potassium chloride premix 100 ML 26.25 ML IV (12:11)
--- NOTE | 2025-01-05 13:23 | PC.NURSE ---
Additional dose of tylenol was given per Dr. Mcnulty for a temperature of 102.6 F.
[2025-01-05 14:21] LABS: Partial Thromboplastin Time 38.4 SECONDS (23.9-36.7)
--- NOTE | 2025-01-05 15:39 | PC.OT ---
Unable to complete OT evaluation due to pt not oriented to person and is unable to follow one step directions at this time; will attempt again at later time.
[2025-01-05] MEDS: dexmedeTOMIDine 0.9 % NaCL 400 MCG/100 ML PREMIX 7.32 MCG IV (16:17)
--- NOTE | 2025-01-05 17:04 | PC.NURSE ---
Patient's temperature increased to 102.9 even after giving an extra dose of tylenol. Doctor was notified and they ordered to wipe down the patient with cold rags and place ice under the armpits and groins.
[2025-01-05 17:57] LABS: Glucose Point of Care 306 mg/dL (70-110)
[2025-01-05 17:57] LABS: Glucose Point of Care 266 mg/dL (70-110)
--- NOTE | 2025-01-05 19:00 | PC.NURSE ---
Patient became more alert and oriented. Patient started to demand to go home. This nurse educated the patient on their frail condition and that it was not safe to go home yet. Patient insisted still on going home. Patient's contact was called and they stated they will come to talk to the patient. Patient calmed down and said he would wait to talk to their friend.
[2025-01-05 20:24] LABS: Partial Thromboplastin Time 29.3 SECONDS (23.9-36.7)
[2025-01-05 20:35] LABS: Glucose Point of Care 352 mg/dL (70-110)
[2025-01-05] MEDS: heparin drip 25,000 UNIT/500 ML PREMIX 53 UNIT IV (20:47)
[2025-01-05] MEDS: dextrose 5% 1,000 ML 30 ML IV (23:06)
[2025-01-06] VITALS (36 sets, daily range): BP systolic 107–184; BP diastolic 63–106; PULSE 95–115; RESP 14–26; TEMP 36.7–37; O2SAT 88–97
[2025-01-06] MEDS: lactulose oral liq 20 gm/30 mL UDC PO ×4 (02:27→19:28)
[2025-01-06] MEDS: ipratropium-albuterol 3 mL Neb INHALATION ×4 (03:30→19:47)
[2025-01-06 04:15] LABS: Basophils % 0.2 %; Eosinophils % 0.1 %; Hematocrit 49.5 % (37-53); Lymphocytes # 1.2 10^3/uL (0.8-4.8); Lymphocytes % 7.5 %; Mean Corpuscular HGB Conc 29.9 g/dL (30-55); Mean Corpuscular Hemoglobin 27.2 pg (27-33); Monocytes # 1.6 10^3/uL (0.2-0.9); Monocytes % 9.6 %; Neutrophils # 13.46 10^3/uL (1.8-7.7); Neutrophils % 82.1 %; Nucleated Red Blood Cells % 0 %; Platelet Count 166 10^3/cmm (157-399); Red Blood Count 5.44 10^6/uL (3.85-5.65); Red Cell Distribution Width 21.4 % (12.1-15.1); White Blood Count 16.39 10^3/uL (3.29-11.43)
[2025-01-06] MEDS: acetaminophen 325 mg Tablet 650 MG PO (04:42)
[2025-01-06] MEDS: meropenem 500 mg SDV IVP ×3 (04:42→20:04)
[2025-01-06 04:50] LABS: Partial Thromboplastin Time 233.7 SECONDS (23.9-36.7)
[2025-01-06 04:53] LABS: Slide Review Slide Review Perform
[2025-01-06] MEDS: buPROPion XL (24 HR) 300 mg Tablet PO (05:16)
[2025-01-06 05:46] LABS: Alanine Aminotransferase 533 U/L (0-41); Albumin Level 2.6 g/dL (3.5-5.2); Alkaline Phosphatase 114 U/L (40-130); Blood Urea Nitrogen 19 mg/dL (8-23); Calcium 8.9 mg/dL (8.5-10.5); Carbon Dioxide 38 mmol/L (22-29); Chloride 99 mmol/L (98-107); Creatinine Clr Calc Pharmacy 129.3201; Globulin 2.8 g/dL (1.3-4.6); Glomerular Filtration Rate 215.2 mL/min (90-130); Glucose 377 mg/dL (65-115); Osmolality Calculated 320 mOsm/kg (285-295); Sodium 146 mmol/L (136-145); Total Bilirubin 1.4 mg/dL (0.15-1.2); Total Protein 5.4 g/dL (6.6-8.7)
[2025-01-06 05:56] LABS: Anion Gap 12.2 (5-19); Potassium 3.2 mmol/L (3.5-5.1)
[2025-01-06 05:57] LABS: Aspartate Amino Transferase 43 U/L (0-40)
--- NOTE | 2025-01-06 06:04 | PC.NURSE ---
Patients catheter continuously leaking after multiple attempts to resolve. Catheter was removed and replaced and balloon filled with 12 mL's of sterile water.
[2025-01-06 07:22] LABS: Glucose Point of Care 300 mg/dL (70-110)
[2025-01-06 07:31] LABS: Partial Thromboplastin Time 45.1 SECONDS (23.9-36.7)
[2025-01-06] MEDS: budesonide 0.5 mg/2 mL Neb INHALATION ×2 (07:59→19:47)
[2025-01-06] MEDS: insulin glargine 100 units/1 mL 10 UNIT SUBCUT (08:03)
[2025-01-06] MEDS: insulin lispro 100 unit/1 mL SUBCUT ×3 (08:03→20:07)
[2025-01-06] MEDS: lisinopril 20 mg Tablet PO ×2 (08:04→17:19)
[2025-01-06] MEDS: gabapentin 300 mg Capsule 600 MG PO ×3 (08:04→20:04)
[2025-01-06] MEDS: hyDRALAzine 25 mg Tablet PO ×4 (08:04→20:04)
[2025-01-06] MEDS: nicotine 21 mg Patch 2 PATCH TRANSDERMA (08:04)
[2025-01-06] MEDS: heparin drip 25,000 UNIT/500 ML PREMIX 47 UNIT IV (10:38)
[2025-01-06] MEDS: linezolid premix 600 MG/300 ML PREMIX 300 MG IV ×2 (11:32→22:30)
[2025-01-06 11:40] LABS: Glucose Point of Care 550 mg/dL (70-110)
[2025-01-06 11:40] LABS: Glucose Point of Care 528 mg/dL (70-110)
--- NOTE | 2025-01-06 11:40 | PC.NURSE ---
blood glucose 528, notified Dr. Martinez. Order given to treat with 15units IV regular insulin and then recheck in 1 hour.
[2025-01-06] MEDS: insulin regular-human 100 units/1 mL 15 UNIT IVP ×2 (11:45→12:57)
--- NOTE | 2025-01-06 12:37 | PC.NURSE ---
Blood glucose 559, notified Dr. Martinez. Order given to give 15 units regular insulin IVP and 500mL NS and recheck in 1 hour.
[2025-01-06 12:49] LABS: Glucose Point of Care 559 mg/dL (70-110)
[2025-01-06] MEDS: sodium chloride 0.9% 500 ML IV (12:57)
--- NOTE | 2025-01-06 13:40 | P.PN_ITS ---
Subjective 2 Subjective: No acute events overnight. Patient seen at his bedside and has no new complaints. He denies chest pain or worsening shortness of breath. He is awake and communicative. Vitals/I&O/Wt Last Vital Signs Temp 98.1 F 01/06/25 12:00 Pulse 109 H 01/06/25 12:00 Resp 22 H 01/06/25 12:00 BP 135/73 01/06/25 12:00 Pulse Ox 94 01/06/25 12:00 O2 Del Method Nasal Cannula 01/06/25 12:00 O2 Flow Rate 3 01/06/25 12:00 FiO2 5 01/05/25 04:30 01/05/25 01/06/25 01/06/25 22:59 06:59 14:59 Intake Total 2422.436 / 2981.186 971.95 / 3953.136 1650.55 / 1650.55 Output Total 950 / 2500 900 / 3400 Balance 1472.436 / 481.186 71.95 / 638.305 3892.55 / 1650.55 Weight last 48 hrs Weight 139 kg Weight 138.7 kg Physical Exam 2 Narrative: General -Awake, alert , no acute distress , acutely ill-appearing, wearing nasal cannula HEENT-normocephalic, atraumatic, neck is supple Lungs-Diminished breath sounds bilaterally, no wheezes or crackles CVS -S1-S2, regular rate and rhythm Abdomen -soft, nontender, normal bowel sounds Extremities-signs of chronic venous stasis bilaterally, trace edema, bilateral legs with dressing Neurology -No obvious gross focal deficits Urinary Catheter Management: Ayala: Cath Placed During This Visit: yes, but has since been removed by the nurse Reason for Continuing Indwelling Catheter: Decision to DC Catheter Urinary Catheter Date of Insertion: 01/06/25 Urinary Catheter Time of Insertion: 03:00 Date Urinary Catheter Removed: 01/06/25 Time Urinary Catheter Discontinued: 03:00 Data 01/06/25 03:53 01/06/25 04:12 Micro: Microbiology 01/01/25 09:31 Blood Culture - Final Blood NO GROWTH AFTER 5 DAYS 01/01/25 08:31 Blood Culture - Final Blood NO GROWTH AFTER 5 DAYS A&P Assessment and plan (1) Metabolic encephalopathy: (2) Respiratory failure with hypoxia and hypercapnia: (3) CHINTAN (acute kidney injury): (4) Transaminitis: (5) Lower extremity ulceration: (6) Cellulitis: (7) Diabetes mellitus: (8) Heavy cigarette smoker: Plan #Acute Respiratory failure with hypoxia and hypercapnia -In the setting of pneumonia, COPD, possible HF -Continue bipap for naps and at bedtime -He is currently on 3 L supplemental oxygen. -Wean oxygen as tolerated # Pneumonia - Continue linezolid and meropenem to complete course #Metabolic encephalopathy -In the setting of acute illness -Mental status much improved , patient is now awake , communicative - Continue to monitor #Acute Kidney Injury - CHINTAN is resolved - Avoid nephrotoxic medications #Lower extremity ulceration # Cellulitis of lower extremities # Chronic stasis dermatitis - Erythema improved -Continue antibiotics - Arterial Doppler ultrasound- concern for at least moderate arterial disease # Transaminases - Thought to be due to kratom use question liver toxicity - Liver enzymes trending down - Continue to monitor # COPD exacerbation -Improved - Continue breathing treatments - Steroids discontinued # Type 2 diabetes with hyperglycemia - Glucose checks, continue to titrate insulin as appropriate # Heart failure with preserved EF - Echo showed normal EF, diastolic dysfunction - Patient received IV Lasix, edema improved - Lasix currently held - Continue to monitor # Elevated troponin - Possibly due to increased demand - Further risk stratification as appropriate after acute illness resolves #Elevated D dimer - Patient has been on empiric heparin infusion for this since admission - Will get CTA to rule out PE # Tobacco use - Encourage cessation # Constipation - Bowel regimen PDMP PDMP Reviewed: Not Reviewed Attestations 2 Medical Necessity Statement*: Patient to continue inpatient care for respiratory failure, pneumonia requiring IV antibiotics and close monitoring. Coding Level of Care Code Acute Code for [facility] Diagnoses Metabolic encephalopathy G93.41 Respiratory failure with hypoxia and hypercapnia J96.91; J96.92 CHINTAN (acute kidney injury) N17.9 Transaminitis R74.01 Lower extremity ulceration L97.909 Cellulitis L03.90 Diabetes mellitus E11.9 Heavy cigarette smoker F17.210
[2025-01-06 14:05] LABS: Glucose Point of Care 385 mg/dL (70-110)
--- NOTE | 2025-01-06 14:16 | CTR_ITS ---
PROCEDURE INFORMATION: Exam: CTA Chest With Contrast Exam date and time: 01/06/2025 6:09 PM Age: 64 years old Clinical indication: Shortness of breath; SOB and hypoxia with bilat pleural effusions. History of chf. ; Additional info: Evaluate for pe TECHNIQUE: Imaging protocol: Computed tomographic angiography of the chest with contrast. Exam focused on the arteries. 3D rendering (Not supervised by radiologist): MIP and/or 3D reconstructed images were created by the technologist. Radiation optimization: All CT scans at this facility use at least one of these dose optimization techniques: automated exposure control; mA and/or kV adjustment per patient size (includes targeted exams where dose is matched to clinical indication); or iterative reconstruction. Contrast material: OMNI 350; Contrast volume: 60 ml; Contrast route: INTRAVENOUS (IV); COMPARISON[place] [id number] 01/04/2025 11:46 AM RADIATION DOSE METRICS: Total DLP (mGy-cm): 490.71 FINDINGS: Tubes, catheters and devices: Right upper extremity PICC terminates near the atriocaval junction. Pulmonary arteries: No evidence of pulmonary artery emboli. Aorta: Mild scattered calcific atheromatous disease of the thoracic aorta. Thyroid: Partially imaged thyroid is normal in appearance. Lungs: Moderate bibasilar consolidative atelectasis. Patchy airspace opacities throughout the bilateral lungs, more prominent anteriorly. Pleural spaces: Small left and moderate-sized right pleural effusions, unchanged. Heart: Mild multi chamber cardiomegaly. Coronary arteries: Coronary artery calcifications. Lymph nodes: Prominent sub threshold upper mediastinal lymph nodes, presumed reactive. Adrenal glands: Partially imaged left adrenal hypertrophy. Bones/joints: No acute osseous findings. Soft tissues: Visualized superficial soft tissues are within normal limits. CT/CT angio chest PE protcl [id number] IMPRESSION: 1. No evidence of pulmonary artery emboli. 2. Patchy airspace opacities throughout the bilateral lungs, more prominent anteriorly. This may represent multifocal infectious infiltrates or less likely prominent pulmonary edema. 3. Small left and moderate-sized right pleural effusions, unchanged. 4. Moderate bibasilar consolidative atelectasis. 5. Mild multi chamber cardiomegaly. 6. Prominent sub threshold upper mediastinal lymph nodes, presumed reactive. 7. Partially imaged left adrenal hypertrophy.
[2025-01-06] MEDS: insulin lispro 100 unit/1 mL 15 UNIT SUBCUT (14:21)
--- NOTE | 2025-01-06 15:28 | PC.NURSE ---
0900 -- Assisted to chair at side of bed with PT. Very weak, maximum assistance required. 0945 -- Assisted to bedside commode from chair at bedside, maximum assistance required. 1015 -- Returned to bed with PT and nurses x 2. Maximum assistance required. Large soft BM noted.
[2025-01-06 15:59] LABS: Partial Thromboplastin Time 148.1 SECONDS (23.9-36.7)
[2025-01-06] MEDS: iohexol 350 mg/mL 500 mL Btl (per mL) IV (18:17)
[2025-01-06] MEDS: potassium chloride ER 20 mEq Tablet 40 MEQ PO (19:28)
[2025-01-06 19:40] LABS: Glucose Point of Care 256 mg/dL (70-110)
[2025-01-06 20:04] LABS: Glucose Point of Care 295 mg/dL (70-110)
[2025-01-06 20:56] LABS: Partial Thromboplastin Time 132.9 SECONDS (23.9-36.7)
[2025-01-07] VITALS (36 sets, daily range): BP systolic 88–166; BP diastolic 51–98; PULSE 88–114; RESP 13–24; TEMP 37.3; O2SAT 3–98
[2025-01-07] MEDS: ipratropium-albuterol 3 mL Neb INHALATION ×4 (01:34→19:43)
[2025-01-07] MEDS: meropenem 500 mg SDV IVP ×3 (04:04→19:45)
[2025-01-07] MEDS: buPROPion XL (24 HR) 300 mg Tablet PO (05:52)
[2025-01-07 05:59] LABS: Basophils % 0.1 %; Eosinophils % 0.2 %; Hematocrit 45.4 % (37-53); Lymphocytes % 6.6 %; Mean Corpuscular Hemoglobin 27.1 pg (27-33); Mean Corpuscular Volume 90.4 fl (82-101); Monocytes % 6.3 %; Neutrophils # 13.31 10^3/uL (1.8-7.7); Neutrophils % 86.3 %; Nucleated Red Blood Cells % 0 %; Platelet Count 108 10^3/cmm (157-399); Red Blood Count 5.02 10^6/uL (3.85-5.65); Red Cell Distribution Width 20.9 % (12.1-15.1); White Blood Count 15.41 10^3/uL (3.29-11.43)
--- NOTE | 2025-01-07 06:17 | PC.NURSE ---
Unable to obtain accurate measurement due to catheter bag leaking.
[2025-01-07 06:25] LABS: Slide Review Slide Review Perform
[2025-01-07 06:29] LABS: Alanine Aminotransferase 301 U/L (0-41); Albumin Level 2.3 g/dL (3.5-5.2); Alkaline Phosphatase 100 U/L (40-130); Anion Gap 13.7 (5-19); Aspartate Amino Transferase 21 U/L (0-40); Blood Urea Nitrogen 21 mg/dL (8-23); Calcium 8.5 mg/dL (8.5-10.5); Carbon Dioxide 32 mmol/L (22-29); Chloride 96 mmol/L (98-107); Creatinine Clr Calc Pharmacy 129.4743; Globulin 2.3 g/dL (1.3-4.6); Glomerular Filtration Rate 134.8 mL/min (90-130); Glucose 277 mg/dL (65-115); Magnesium 1.7 mg/dL (1.7-2.3); Osmolality Calculated 299 mOsm/kg (285-295); Potassium 3.7 mmol/L (3.5-5.1); Sodium 138 mmol/L (136-145); Total Bilirubin 1.2 mg/dL (0.15-1.2); Total Protein 4.6 g/dL (6.6-8.7)
[2025-01-07 08:44] LABS: Glucose Point of Care 308 mg/dL (70-110)
[2025-01-07] MEDS: lactulose oral liq 20 gm/30 mL UDC PO ×3 (08:57→19:42)
[2025-01-07] MEDS: nicotine 21 mg Patch 2 PATCH TRANSDERMA (08:57)
[2025-01-07] MEDS: gabapentin 300 mg Capsule 600 MG PO ×3 (08:58→21:16)
[2025-01-07] MEDS: heparin 5,000 unit/mL INJ 1 mL 5000 UNIT SUBCUT ×2 (08:58→19:46)
[2025-01-07] MEDS: lisinopril 20 mg Tablet PO ×2 (08:58→17:51)
[2025-01-07] MEDS: insulin glargine 100 units/1 mL 20 UNIT SUBCUT (08:58)
[2025-01-07] MEDS: insulin lispro 100 unit/1 mL SUBCUT ×4 (08:58→21:16)
[2025-01-07] MEDS: hyDRALAzine 25 mg Tablet PO ×4 (08:58→21:16)
[2025-01-07] MEDS: budesonide 0.5 mg/2 mL Neb INHALATION ×2 (10:01→19:43)
[2025-01-07] MEDS: linezolid premix 600 MG/300 ML PREMIX 300 MG IV (10:30)
[2025-01-07 12:49] LABS: Glucose Point of Care 426 mg/dL (70-110)
[2025-01-07] MEDS: ondansetron 2 mg/ML SDV 2 mL 4 MG IVP (15:05)
[2025-01-07 17:45] LABS: Glucose Point of Care 228 mg/dL (70-110)
--- NOTE | 2025-01-07 18:30 | P.PN_ITS ---
Subjective 2 Subjective: Denies problems at this time. More oriented today. Medications: Reviewed: Yes Vitals/I&O/Wt Last Vital Signs Temp 98.2 F 01/06/25 16:00 Pulse 114 H 01/07/25 17:00 Resp 16 01/07/25 17:00 BP 140/68 01/07/25 17:00 Pulse Ox 94 01/07/25 17:00 O2 Del Method Nasal Cannula 01/07/25 17:00 O2 Flow Rate 3 01/07/25 17:00 FiO2 40 01/07/25 04:00 01/07/25 01/07/25 01/07/25 06:59 14:59 22:59 Intake Total 1080 / 1080 Output Total 500 / 2300 Balance -500 / 703.617 0883 / 1080 Weight last 48 hrs Weight 354 lb 15.108 oz Weight 306 lb 7.08 oz Physical Exam 2 Narrative: General: Cooperative patient in no apparent distress. Well developed. HEENT: Normocephalic, Atraumatic. External ears normal. Nasal passages patent without drainage. MMM. Heart: RRR. Resp: LCTA. No respiratory distress, no use of accessory muscles. Abd: Soft, non-tender. Non-distended. Urinary Catheter Management: Ayala: Cath Placed During This Visit: yes, but has since been removed by the nurse Reason for Continuing Indwelling Catheter: Accurate Measurement of Urinary Output in Critically Ill Patients Urinary Catheter Date of Insertion: 01/06/25 Urinary Catheter Time of Insertion: 03:00 Date Urinary Catheter Removed: 01/06/25 Time Urinary Catheter Discontinued: 03:00 Data 01/07/25 05:07 01/07/25 05:07 A&P Assessment and plan (1) Metabolic encephalopathy: (2) Respiratory failure with hypoxia and hypercapnia: (3) CHINTAN (acute kidney injury): (4) Transaminitis: (5) Lower extremity ulceration: (6) Cellulitis: (7) Diabetes mellitus: (8) Heavy cigarette smoker: Plan 64 y/o M admitted for Sepsis 2/2 pneumonia. Continue close inpatient monitoring. For pneumonia, Will continue linezolid and meropenem to complete course. Breathing has improved. Encephalopathy is improving. More awake, alert, oriented. Will advance diet today. Cellulitis is improving currently. Recheck a.m. labs. Encouraged smoking cessation. Echo showed normal EF. Continue lactulose for constipation. Can add additional meds if needed. Code Status: Full IVF: None DVT PPx: heparin GI PPx: None ABx: Meropenem, Diet: ADAT Discharge plan: TBD. PDMP PDMP Reviewed: Not Reviewed Attestations 2 Medical Necessity Statement*: Patient to continue inpatient care for respiratory failure, pneumonia requiring IV antibiotics and close monitoring. Coding Level of Care Code Acute Code for Chg Fwd Moderate MDM includes number and complexity of problems actively addressed during encounter, amount and/or complexity of data reviewed/ordered and described risk of complication, morbidity or mortality of management as documented Diagnoses Metabolic encephalopathy G93.41 Respiratory failure with hypoxia and hypercapnia J96.91; J96.92 CHINTAN (acute kidney injury) N17.9 Transaminitis R74.01 Lower extremity ulceration L97.909 Cellulitis L03.90 Diabetes mellitus E11.9 Heavy cigarette smoker F17.210
[2025-01-07 21:37] LABS: Glucose Point of Care 218 mg/dL (70-110)
[2025-01-08] VITALS (48 sets, daily range): BP systolic 68–140; BP diastolic 46–73; PULSE 82–114; RESP 14–31; TEMP 36.7–37.2; O2SAT 76–97
[2025-01-08] MEDS: linezolid premix 600 MG/300 ML PREMIX 300 MG IV ×2 (00:42→09:26)
[2025-01-08] MEDS: ipratropium-albuterol 3 mL Neb INHALATION ×3 (01:24→14:09)
[2025-01-08] MEDS: lactulose oral liq 20 gm/30 mL UDC PO (02:44)
[2025-01-08] MEDS: buPROPion XL (24 HR) 300 mg Tablet PO (05:28)
[2025-01-08] MEDS: meropenem 500 mg SDV IVP ×2 (05:28→13:14)
[2025-01-08 05:31] LABS: Basophils % 0.1 %; Eosinophils # 0.3 10^3/uL (0.0-0.8); Hematocrit 43.4 % (37-53); Lymphocytes # 1.4 10^3/uL (0.8-4.8); Lymphocytes % 10.6 %; Mean Corpuscular HGB Conc 30.2 g/dL (30-55); Mean Corpuscular Hemoglobin 27.1 pg (27-33); Mean Corpuscular Volume 89.9 fl (82-101); Monocytes # 0.7 10^3/uL (0.2-0.9); Monocytes % 5.7 %; Neutrophils # 10.43 10^3/uL (1.8-7.7); Nucleated Red Blood Cells % 0 %; Platelet Count 89 10^3/cmm (157-399); Red Blood Count 4.83 10^6/uL (3.85-5.65); White Blood Count 12.87 10^3/uL (3.29-11.43)
[2025-01-08 05:44] LABS: Slide Review Slide Review Perform
[2025-01-08 05:57] LABS: Alanine Aminotransferase 204 U/L (0-41); Albumin Level 2.3 g/dL (3.5-5.2); Alkaline Phosphatase 104 U/L (40-130); Anion Gap 11.5 (5-19); Aspartate Amino Transferase 25 U/L (0-40); Blood Urea Nitrogen 22 mg/dL (8-23); Calcium 8.7 mg/dL (8.5-10.5); Carbon Dioxide 37 mmol/L (22-29); Chloride 95 mmol/L (98-107); Creatinine Clr Calc Pharmacy 127.6757; Globulin 2.3 g/dL (1.3-4.6); Glomerular Filtration Rate 134.8 mL/min (90-130); Glucose 225 mg/dL (65-115); Osmolality Calculated 300 mOsm/kg (285-295); Potassium 3.5 mmol/L (3.5-5.1); Sodium 140 mmol/L (136-145); Total Bilirubin 1.4 mg/dL (0.15-1.2); Total Protein 4.6 g/dL (6.6-8.7)
[2025-01-08 06:51] LABS: MRSA PCR OZH (swab) MRSA Detected (Negative)
[2025-01-08] MEDS: simethicone 80 mg Chew PO ×3 (07:27→17:11)
--- NOTE | 2025-01-08 07:35 | PC.NURSE ---
Pain Patient complaining of severe back pain as well as flatulence. Dr. Fuller contacted; orders received for 4 mg morphine IVP once and 80 mg simethicone PO once then BID for two days following. When ready to administer morphine, patient stated his pain was doing good and that he wanted to wait for pain medication later. Medication returned to [facility].
[2025-01-08] MEDS: budesonide 0.5 mg/2 mL Neb INHALATION ×2 (08:00→19:44)
[2025-01-08 08:33] LABS: Glucose Point of Care 222 mg/dL (70-110)
[2025-01-08] MEDS: insulin lispro 100 unit/1 mL SUBCUT ×4 (09:23→20:05)
[2025-01-08] MEDS: heparin 5,000 unit/mL INJ 1 mL 5000 UNIT SUBCUT ×2 (09:23→20:05)
[2025-01-08] MEDS: gabapentin 300 mg Capsule 600 MG PO ×3 (09:24→20:04)
[2025-01-08] MEDS: lisinopril 20 mg Tablet PO (09:24)
[2025-01-08] MEDS: insulin glargine 100 units/1 mL 20 UNIT SUBCUT (09:28)
[2025-01-08] MEDS: nicotine 21 mg Patch 2 PATCH TRANSDERMA (09:28)
[2025-01-08 12:16] LABS: Glucose Point of Care 276 mg/dL (70-110)
--- NOTE | 2025-01-08 14:05 | P.PN_ITS ---
Subjective 2 Subjective: Patient is currently out of bed to the bedside commode. His heart rate is ranging between 100-1 1 3. Denies any complaints, however visibly is noted to be tachypneic. Medications: Reviewed: Yes Vitals/I&O/Wt Last Vital Signs Temp 99.0 F 01/08/25 09:00 Pulse 114 H 01/08/25 12:30 Resp 20 H 01/08/25 12:30 BP 101/56 01/08/25 12:30 Pulse Ox 92 01/08/25 08:00 O2 Del Method Room Air 01/08/25 08:00 O2 Flow Rate 3 01/08/25 04:30 FiO2 40 01/08/25 01:24 01/07/25 01/08/25 01/08/25 22:59 06:59 14:59 Intake Total 0 / 1080 1020 / 2100 Output Total 800 / 800 Balance 0 / 1080 220 / 1300 Weight last 48 hrs Weight 135.5 kg Weight 161 kg Physical Exam 2 Urinary Catheter Management: Ayala: Cath Placed During This Visit: yes, but has since been removed by the nurse Reason for Continuing Indwelling Catheter: Accurate Measurement of Urinary Output in Critically Ill Patients Urinary Catheter Date of Insertion: 01/06/25 Urinary Catheter Time of Insertion: 03:00 Date Urinary Catheter Removed: 01/06/25 Time Urinary Catheter Discontinued: 03:00 Data 01/08/25 05:08 01/08/25 05:08 A&P Assessment and plan (1) Metabolic encephalopathy: (2) Respiratory failure with hypoxia and hypercapnia: (3) CHINTAN (acute kidney injury): (4) Transaminitis: (5) Lower extremity ulceration: (6) Cellulitis: (7) Diabetes mellitus: (8) Heavy cigarette smoker: Plan 64 y/o M admitted for Sepsis 2/2 pneumonia. Continue close inpatient monitoring. For pneumonia, Will continue linezolid and meropenem to complete course. Breathing has improved. Encephalopathy is improving. More awake, alert, oriented. Will advance diet today. Cellulitis is improving currently. Recheck a.m. labs. Encouraged smoking cessation. Echo showed normal EF. Continue lactulose for constipation. Can add additional meds if needed. Code Status: Full IVF: None DVT PPx: heparin GI PPx: None ABx: Meropenem, Diet: ADAT Discharge plan: TBD. 01/08/25: Patient is a 64-year-old male with history of diabetes mellitus, hypertension, and prior prostate cancer surgery, chronic venous stasis, weeping lower extremity ulcers, congestive heart failure, diabetes, hypertension, heavy smoking, admitted on 01/01 with acute hypercapneic respiratory failure needing BIPAP ventilation. This was related to COPD exacerbation and acute on chronic diastolic CHF. Concern for PE on admission which has since been ruled out. He had elevtae dtroponins on admission ranging 90-100 with eventual downtrend. Received ASA, and heparin drip which was subsequently discontinued. Echo shoed LVEF 55%. For LE celluliti she started iv abx Zosyn and vancomycin. Hospital course has been notable for lethargy and significant deconditioning currently needing max assist, while just prior to admission he was reportedly able to drive and independent of ADLs. WBC count currently at 12.87. T max improved 99F after peaking at 102F on 01/05[place] [address] today. Evidence of DKA on admission with Anion gap of 22, which has since resolved. CTA chest negative for PE on 01/06. patchy aorspcae disease B/L ? multifocal PNA. reactive LAD noted. CT AP on admission with B/L GGOs. No acute abdominal findings. Blood cx negative since admission. Echo shows LVEF 55%, gr 1 diastolic function, trace MR, no RWMA. Plan: Atpuycal B/L infiltrates on CTA chest concerning for atypical infection, multifocal pneumonia per personal interpretation. Check sputum cx. bacterial Ag panel, legionella ag. MRSA nasal screen +, therefore staph pneumonia in the differentials. Falling platelet count may be related to recent heparin use, however will also r/o tick borne illness. Check tick panel, Add presumptove doxycycline. Reume methylprednisone 30mg iv every 8 hrs as patient is high risk of progression. H/o frequent travelling,. obtain coccidiodes serolgy, histoplasma serology and cryptococcus Ag to evaluet for other atypical process. Add beta blockers for tachycardia. D/c lisinopril to allow room on BP to add beta blockers. Resume lasix given anasarca. Dose optimize meropenem to 1g iv every 8 hrs from 500mg iv every 8 hrs currently. D/c Linezolid, change to vancomycin. Change insulin to high dose sliding scale. Change Duoneb to Xopenex/ipratropium PDMP PDMP Reviewed: Not Reviewed Attestations 2 Medical Necessity Statement*: continued hospital admission for multifocal pneumonia, resp failure, iv steroids, diuretics and antibiotics Coding Level of Care Code Acute Code for Chg Fwd High MDM includes number and complexity of problems actively addressed during encounter, amount and/or complexity of data reviewed/ordered and described risk of complication, morbidity or mortality of management as documented Diagnoses Metabolic encephalopathy G93.41 Respiratory failure with hypoxia and hypercapnia J96.91; J96.92 CHINTAN (acute kidney injury) N17.9 Transaminitis R74.01 Lower extremity ulceration L97.909 Cellulitis L03.90 Diabetes mellitus E11.9 Heavy cigarette smoker F17.210
--- NOTE | 2025-01-08 15:18 | PHA.VACGOAL ---
Vancomycin Goal - Goal Vancomycin Goal:: 15-20 mg/L Vancomycin Indication:: Pneumonia - Therapy Current therapy:: Meropenem Day of therpy:: Day []of [] . Actual body weight (kg): 298 lb 11.622 oz - Data Labs: WBC 12.87 10^3/uL (3.29-11.43) H 01/08/25 05:08 Corrected WBC Cancelled 01/06/25 03:19 RBC 4.83 10^6/uL (3.85-5.65) 01/08/25 05:08 Hgb 13.10 g/dL (11.27-16.99) 01/08/25 05:08 Hct 43.4 % (37-53) 01/08/25 05:08 MCV 89.9 fl (82-101) 01/08/25 05:08 MCH 27.1 pg (27-33) 01/08/25 05:08 MCHC 30.2 g/dL (30-55) 01/08/25 05:08 RDW 21.0 % (12.1-15.1) H 01/08/25 05:08 Sodium 140 mmol/L (136-145) 01/08/25 05:08 Potassium 3.5 mmol/L (3.5-5.1) 01/08/25 05:08 Chloride 95 mmol/L (98-107) L 01/08/25 05:08 Carbon Dioxide 37 mmol/L (22-29) H 01/08/25 05:08 Anion Gap 11.5 (5-19) 01/08/25 05:08 BUN 22 mg/dL (8-23) 01/08/25 05:08 Creatinine 0.6 mg/dL (0.7-1.2) L 01/08/25 05:08 GFR Calculation 134.8 mL/min (90-130) H 01/08/25 05:08 Last dialysis session:: N/A Treatment plan:: new consult Regimen:: NO LOADING DOSE PER DOCTORS ORDERS. STARTING A MAINTENANCE DOSE OF 1500 MG Q8H PER DOSING PROTOCOL. Follow up:: WILL CONTINUE TO MONITOR AND FOLLOW UP DAILY
--- NOTE | 2025-01-08 16:58 | PC.NURSE ---
Hydralazine held d/t SBP 90's. Lactulose refused this shift. States it causes him to feel bloated. Large BM this shift as well as yesterday. Dr Guzman notified.
[2025-01-08] MEDS: methylPREDNISolone sod succ 40 mg/mL INJ 30 MG IVP ×2 (17:07→23:34)
[2025-01-08] MEDS: FUROsemide 10 mg/mL SDV 4mL 40 MG IVP (17:07)
[2025-01-08] MEDS: vancomycin 1,500 MG/300 ML PIGGYBACK 200 MG IV ×2 (17:08→23:31)
[2025-01-08] MEDS: meropenem 1,000 mg SDV 1000 MG IVP ×2 (17:08→23:36)
[2025-01-08] MEDS: doxycycline 100 mg Tablet PO (17:11)
[2025-01-08 17:30] LABS: Glucose Point of Care 242 mg/dL (70-110)
[2025-01-08] MEDS: levalbuterol 1.25 mg/3 mL Neb INHALATION (19:43)
[2025-01-08] MEDS: ipratropium 0.5 mg/2.5 mL Neb INHALATION (19:44)
[2025-01-08 20:01] LABS: Glucose Point of Care 160 mg/dL (70-110)
[2025-01-08] MEDS: metoprolol tartrate 25 mg Tablet 12.5 MG PO (20:13)
[2025-01-09] VITALS (28 sets, daily range): BP systolic 114–176; BP diastolic 62–89; PULSE 75–100; RESP 14–21; TEMP 36.2–37.4; O2SAT 90–99
[2025-01-09] MEDS: levalbuterol 1.25 mg/3 mL Neb INHALATION ×3 (02:26→20:07)
[2025-01-09] MEDS: ipratropium 0.5 mg/2.5 mL Neb INHALATION ×3 (02:26→20:06)
[2025-01-09] MEDS: FUROsemide 10 mg/mL SDV 4mL 40 MG IVP (03:28)
[2025-01-09] MEDS: methylPREDNISolone sod succ 40 mg/mL INJ 30 MG IVP ×2 (06:13→13:57)
[2025-01-09] MEDS: meropenem 1,000 mg SDV 1000 MG IVP ×3 (06:15→23:28)
[2025-01-09] MEDS: buPROPion XL (24 HR) 300 mg Tablet PO (06:18)
[2025-01-09 06:20] LABS: Basophils % 0.2 %; Hematocrit 44.8 % (37-53); Lymphocytes # 0.6 10^3/uL (0.8-4.8); Lymphocytes % 5.6 %; Mean Corpuscular HGB Conc 30.8 g/dL (30-55); Mean Corpuscular Hemoglobin 27.4 pg (27-33); Mean Corpuscular Volume 89.1 fl (82-101); Monocytes # 0.2 10^3/uL (0.2-0.9); Monocytes % 1.6 %; Neutrophils # 9.26 10^3/uL (1.8-7.7); Neutrophils % 91.8 %; Nucleated Red Blood Cells % 0 %; Platelet Count 101 10^3/cmm (157-399); Red Blood Count 5.03 10^6/uL (3.85-5.65); Red Cell Distribution Width 20.5 % (12.1-15.1); White Blood Count 10.08 10^3/uL (3.29-11.43)
[2025-01-09 06:38] LABS: Alanine Aminotransferase 148 U/L (0-41); Albumin Level 2.5 g/dL (3.5-5.2); Alkaline Phosphatase 117 U/L (40-130); Anion Gap 15.3 (5-19); Aspartate Amino Transferase 20 U/L (0-40); Blood Urea Nitrogen 26 mg/dL (8-23); Calcium 8.8 mg/dL (8.5-10.5); Carbon Dioxide 34 mmol/L (22-29); Chloride 92 mmol/L (98-107); Creatinine Clr Calc Pharmacy 130.5021; Globulin 2.6 g/dL (1.3-4.6); Glomerular Filtration Rate 166.4 mL/min (90-130); Glucose 251 mg/dL (65-115); Osmolality Calculated 297 mOsm/kg (285-295); Potassium 4.3 mmol/L (3.5-5.1); Sodium 137 mmol/L (136-145); Total Bilirubin 1.4 mg/dL (0.15-1.2); Total Protein 5.1 g/dL (6.6-8.7)
[2025-01-09 07:40] LABS: Glucose Point of Care 238 mg/dL (70-110)
[2025-01-09] MEDS: doxycycline 100 mg Tablet PO ×2 (08:50→17:36)
[2025-01-09] MEDS: metoprolol tartrate 25 mg Tablet 12.5 MG PO (08:50)
[2025-01-09] MEDS: gabapentin 300 mg Capsule 600 MG PO ×3 (08:50→20:40)
[2025-01-09] MEDS: vancomycin 1,500 MG/300 ML PIGGYBACK 200 MG IV ×2 (08:50→19:52)
[2025-01-09] MEDS: nicotine 21 mg Patch 2 PATCH TRANSDERMA (08:51)
[2025-01-09] MEDS: simethicone 80 mg Chew PO ×2 (08:51→17:36)
[2025-01-09] MEDS: heparin 5,000 unit/mL INJ 1 mL 5000 UNIT SUBCUT ×2 (08:51→20:40)
[2025-01-09] MEDS: insulin lispro 100 unit/1 mL SUBCUT ×4 (08:51→20:40)
[2025-01-09] MEDS: insulin glargine 100 units/1 mL 20 UNIT SUBCUT (08:52)
--- NOTE | 2025-01-09 10:37 | PC.CHAP ---
Pastoral Care Encounter/Spiritual Assessment Type of Contact [] Declined babcock tester visit [] Patient/Family/Request visit [] Outpatient visit [] Follow-up visit [] Physician referral [] Code/Alert [x] Routine visit [] Staff referral [] Actively dying [] Patient sleeping [x] Family support [] [] Out of room [] Palliative care [] [] Receiving care in room [] Pre-surgical visit [] Trauma [] Long length of stay [] ICU visit [] Other: Relational/Emotional Strength [x] Patient feels connected with others/family/visitors/staff [] Distress [] Loneliness/isolation [] Abandonment Spirituality of Patient [x] Person of [place] [] Attends Nondenominational of their [place] [x] Believes in Prayer [] Reads Bible or Buddhist materials [] There are Spiritual issues to be addressed Assembler Tubing Interventions [x] Prayer [x] Active listening [x] Non-anxious presence [x] Spiritual/emotional support [] Crisis/trauma care [] Spiritual counseling [] Bereavement support [] Provided bereavement packet [] Provided Bible/devotional materials [] Provided toy/stuffed animal, coloring book to patient or family member [] Provided Communion [] Anointing/[place] [] Salvation [x] Completed spiritual assessment [] Other: Impact on Illness or Injury [] Angry [] Fearful [] Anxious [] Often cries [] Exhaustion [] Unable to work [] Unable to attend buddhism [] Unable to walk/stand [] Unable to read [] Unable to drive [] Unable to eat/drink [] Unable to sleep [] Unable to be with family [] Patient intubated [] Other: Summary Time spent with patient 5 min
--- NOTE | 2025-01-09 10:46 | PC.NURSE ---
Patient moved to [facility], report was given to MARIN Royal.
[2025-01-09 12:03] LABS: Glucose Point of Care 379 mg/dL (70-110)
--- NOTE | 2025-01-09 15:33 | P.PN_ITS ---
Subjective 2 Subjective: Leukocytosis is improving today. Afebrile. Supplemental O2 at 3 L/min. Medications: Reviewed: Yes Vitals/I&O/Wt Last Vital Signs Temp 97.7 F 01/09/25 11:31 Pulse 100 01/09/25 14:00 Resp 18 01/09/25 13:35 BP 134/76 01/09/25 11:31 Pulse Ox 97 01/09/25 13:35 O2 Del Method Nasal Cannula 01/09/25 13:35 O2 Flow Rate 3 01/09/25 13:35 FiO2 40 01/09/25 03:51 01/09/25 01/09/25 01/09/25 06:59 14:59 22:59 Intake Total 1260 / 1800 1140 / 1140 Output Total 2050 / 3650 Balance -790 / -1850 1140 / 1140 Weight last 48 hrs Weight 141 kg Weight 135.5 kg Physical Exam 2 Narrative: General: No acute distress, AO x3 HEENT: PERRLA, pupils bilaterally equal and reactive, pallors not present Chest: Normal vesicular breath sounds, no added sounds, equal good air entry bilaterally CVS: S1-S2 regular, no murmurs, no tachycardia, no gallops, no rubs Abdomen: Soft, nontender, no organomegaly, bowel sounds present Neuro: No focal deficits, no facial deformity, AO x3, power 5/5 in all limbs Urinary Catheter Management: Ayala: Cath Placed During This Visit: yes, but has since been removed by the nurse Reason for Continuing Indwelling Catheter: Accurate Measurement of Urinary Output in Critically Ill Patients Urinary Catheter Date of Insertion: 01/06/25 Urinary Catheter Time of Insertion: 03:00 Date Urinary Catheter Removed: 01/06/25 Time Urinary Catheter Discontinued: 03:00 Data 01/09/25 06:06 01/09/25 06:06 Micro: Microbiology 01/09/25 06:06 Cryptococcal Antigen (Serum) - Final Blood 01/08/25 18:30 Bacterial Antigens - Final Urine,Voided 01/08/25 18:30 Gram Stain - Final Sputum - Expectorated Sputum 01/08/25 18:30 Legionella Urinary Antigen - Final Urine,Clean Catch A&P Assessment and plan (1) Metabolic encephalopathy: (2) Respiratory failure with hypoxia and hypercapnia: (3) CHINTAN (acute kidney injury): (4) Transaminitis: (5) Lower extremity ulceration: (6) Cellulitis: (7) Diabetes mellitus: (8) Heavy cigarette smoker: Plan 64 y/o M admitted for Sepsis 2/2 pneumonia. Continue close inpatient monitoring. For pneumonia, Will continue linezolid and meropenem to complete course. Breathing has improved. Encephalopathy is improving. More awake, alert, oriented. Will advance diet today. Cellulitis is improving currently. Recheck a.m. labs. Encouraged smoking cessation. Echo showed normal EF. Continue lactulose for constipation. Can add additional meds if needed. Code Status: Full IVF: None DVT PPx: heparin GI PPx: None ABx: Meropenem, Diet: ADAT Discharge plan: TBD. 01/08/25: Patient is a 64-year-old male with history of diabetes mellitus, hypertension, and prior prostate cancer surgery, chronic venous stasis, weeping lower extremity ulcers, congestive heart failure, diabetes, hypertension, heavy smoking, admitted on 01/01 with acute hypercapneic respiratory failure needing BIPAP ventilation. This was related to COPD exacerbation and acute on chronic diastolic CHF. Concern for PE on admission which has since been ruled out. He had elevtae dtroponins on admission ranging 90-100 with eventual downtrend. Received ASA, and heparin drip which was subsequently discontinued. Echo shoed LVEF 55%. For LE celluliti she started iv abx Zosyn and vancomycin. Hospital course has been notable for lethargy and significant deconditioning currently needing max assist, while just prior to admission he was reportedly able to drive and independent of ADLs. WBC count currently at 12.87. T max improved 99F after peaking at 102F on 01/05[place] [address] today. Evidence of DKA on admission with Anion gap of 22, which has since resolved. CTA chest negative for PE on 01/06. patchy aorspcae disease B/L ? multifocal PNA. reactive LAD noted. CT AP on admission with B/L GGOs. No acute abdominal findings. Blood cx negative since admission. Echo shows LVEF 55%, gr 1 diastolic function, trace MR, no RWMA. Plan: Atpuycal B/L infiltrates on CTA chest concerning for atypical infection, multifocal pneumonia per personal interpretation. Check sputum cx. bacterial Ag panel, legionella ag. MRSA nasal screen +, therefore staph pneumonia in the differentials. Falling platelet count may be related to recent heparin use, however will also r/o tick borne illness. Check tick panel, Add presumptove doxycycline. Reume methylprednisone 30mg iv every 8 hrs as patient is high risk of progression. H/o frequent travelling,. obtain coccidiodes serolgy, histoplasma serology and cryptococcus Ag to evaluet for other atypical process. Add beta blockers for tachycardia. D/c lisinopril to allow room on BP to add beta blockers. Resume lasix given anasarca. Dose optimize meropenem to 1g iv every 8 hrs from 500mg iv every 8 hrs currently. D/c Linezolid, change to vancomycin. Change insulin to high dose sliding scale. Change Duoneb to Xopenex/ipratropium January 09, 2025 Continue current antibiotics with meropenem, vancomycin and doxycycline. Currently on 3 L/min supplemental O2. Patient reports he uses as needed oxygen even at home. Reports that he has a portable concentrator which he carries in a backpack but does not like to wear his oxygen as it is cumbersome. Heart rate is better controlled today. Increase metoprolol to 25 mg p.o. twice daily. Reviewed patient's CAT scan with him quite extensively and showed him the extent of his bilateral infiltrates and pneumonia. Patient states that he has been in the hospital for about a week at this point in time and is suffering financial losses therefore he wants to leave by tomorrow. Discussed with him that he is significantly deconditioned and ongoing therapy will likely be flores to his sustained improvement, however patient states that he does not wish to do that. He states that he has several workers who will carry him and drive him to the [facility] state where there is a carnival. States that he will be leaving tomorrow and should any problem arise he will just visit the nearest hospital at that point in time. He is agreeable to staying in the hospital today Noted to have alkalosis, likely related to diuresis with Lasix. Hold next dose of Lasix. Instead we will use acetazolamide 500 mg for the afternoon dose. Recheck CMP with a.m. labs. Transfer out of ICU to CSU today. PDMP PDMP Reviewed: Not Reviewed Attestations 2 Medical Necessity Statement*: Continue need for IV diuresis, IV antibiotics, transfer out of ICU to CSU today Coding Level of Care Code Acute Code for Chg Fwd High MDM includes number and complexity of problems actively addressed during encounter, amount and/or complexity of data reviewed/ordered and described risk of complication, morbidity or mortality of management as documented Diagnoses Metabolic encephalopathy G93.41 Respiratory failure with hypoxia and hypercapnia J96.91; J96.92 CHINTAN (acute kidney injury) N17.9 Transaminitis R74.01 Lower extremity ulceration L97.909 Cellulitis L03.90 Diabetes mellitus E11.9 Heavy cigarette smoker F17.210
[2025-01-09] MEDS: acetaZOLAMIDE 250 mg Tablet 500 MG PO (16:12)
[2025-01-09 17:10] LABS: Glucose Point of Care 382 mg/dL (70-110)
[2025-01-09 18:02] LABS: Vancomycin Trough 16.3 ug/mL (10-15)
--- NOTE | 2025-01-09 19:02 | PC.NURSE ---
This nurse agrees with documentation by Nayan Barbosa RN.
[2025-01-09] MEDS: acetaminophen 325 mg Tablet 650 MG PO (19:51)
[2025-01-09 20:06] LABS: Glucose Point of Care 420 mg/dL (70-110)
[2025-01-09] MEDS: budesonide 0.5 mg/2 mL Neb INHALATION (20:06)
[2025-01-09] MEDS: metoprolol tartrate 25 mg Tablet PO (20:40)
[2025-01-09] MEDS: hyDRALAzine 20 mg/mL INJ 1 mL 10 MG IVP (20:42)
[2025-01-10] VITALS (14 sets, daily range): BP systolic 116–135; BP diastolic 52–68; PULSE 61–89; RESP 14–24; TEMP 36.2–37.1; O2SAT 90–98
[2025-01-10] MEDS: ipratropium 0.5 mg/2.5 mL Neb INHALATION ×4 (02:17→19:59)
[2025-01-10] MEDS: levalbuterol 1.25 mg/3 mL Neb INHALATION ×4 (02:17→20:01)
[2025-01-10] MEDS: vancomycin 1,500 MG/300 ML PIGGYBACK 200 MG IV (03:36)
[2025-01-10 03:40] LABS: Basophils % 0.1 %; Hematocrit 42.2 % (37-53); Lymphocytes # 1.5 10^3/uL (0.8-4.8); Lymphocytes % 10.2 %; Mean Corpuscular HGB Conc 31.3 g/dL (30-55); Mean Corpuscular Hemoglobin 26.8 pg (27-33); Mean Corpuscular Volume 85.8 fl (82-101); Mean Platelet Volume 11.8 fL (7.4-10.4); Monocytes # 1.8 10^3/uL (0.2-0.9); Neutrophils % 76.8 %; Nucleated Red Blood Cells % 0 %; Platelet Count 134 10^3/cmm (157-399); Red Blood Count 4.92 10^6/uL (3.85-5.65); Red Cell Distribution Width 19.8 % (12.1-15.1); White Blood Count 14.71 10^3/uL (3.29-11.43)
[2025-01-10 04:07] LABS: Alanine Aminotransferase 115 U/L (0-41); Albumin Level 2.5 g/dL (3.5-5.2); Alkaline Phosphatase 121 U/L (40-130); Aspartate Amino Transferase 23 U/L (0-40); Blood Urea Nitrogen 26 mg/dL (8-23); Carbon Dioxide 29 mmol/L (22-29); Chloride 91 mmol/L (98-107); Creatinine Clr Calc Pharmacy 130.5021; Globulin 2.2 g/dL (1.3-4.6); Glomerular Filtration Rate 166.4 mL/min (90-130); Glucose 288 mg/dL (65-115); Osmolality Calculated 285 mOsm/kg (285-295); Sodium 130 mmol/L (136-145); Total Bilirubin 0.9 mg/dL (0.15-1.2); Total Protein 4.7 g/dL (6.6-8.7)
[2025-01-10 04:14] LABS: Anion Gap 13.9 (5-19); Potassium 3.9 mmol/L (3.5-5.1)
[2025-01-10] MEDS: meropenem 1,000 mg SDV 1000 MG IVP ×3 (06:12→23:37)
[2025-01-10] MEDS: methylPREDNISolone sod succ 40 mg/mL INJ 30 MG IVP (06:12)
[2025-01-10 06:28] LABS: Glucose Point of Care 300 mg/dL (70-110)
[2025-01-10] MEDS: budesonide 0.5 mg/2 mL Neb INHALATION ×2 (07:51→20:00)
--- NOTE | 2025-01-10 08:36 | XR_ITS ---
WS: [id number] Portable AP upright chest, 01/10/2025 Clinical Data: pneumonia Comparison: Portable chest, 01/02/2025 Findings: The pulmonary vascularity remains prominent. There are small bilateral pleural effusions. The heart is enlarged. The aortic arch is tortuous. No nodules or masses are seen. The right PICC line remains in the same position. XR/XR chest 1V portable [id number] Impression: No change in cardiomegaly, pulmonary vascular congestion and small bilateral pl eural effusions.
[2025-01-10] MEDS: gabapentin 300 mg Capsule 600 MG PO ×3 (08:40→21:25)
[2025-01-10] MEDS: metoprolol tartrate 25 mg Tablet PO ×2 (08:40→21:25)
[2025-01-10] MEDS: doxycycline 100 mg Tablet PO ×2 (08:40→17:45)
[2025-01-10] MEDS: heparin 5,000 unit/mL INJ 1 mL 5000 UNIT SUBCUT ×2 (08:41→21:25)
[2025-01-10] MEDS: nicotine 21 mg Patch 2 PATCH TRANSDERMA (08:41)
[2025-01-10] MEDS: buPROPion XL (24 HR) 300 mg Tablet PO (08:41)
[2025-01-10] MEDS: insulin glargine 100 units/1 mL 20 UNIT SUBCUT (08:42)
[2025-01-10] MEDS: insulin lispro 100 unit/1 mL SUBCUT ×4 (09:49→21:25)
[2025-01-10] MEDS: vancomycin 1,500 MG/300 ML PIGGYBACK 300 MG IV (11:11)
[2025-01-10 11:32] LABS: Glucose Point of Care 369 mg/dL (70-110)
--- NOTE | 2025-01-10 11:51 | P.PN_ITS ---
Subjective 2 Subjective: Leukocytosis at 14K today. Afebrile. Supplemental O2 at 3 L/min. Medications: Reviewed: Yes Vitals/I&O/Wt Last Vital Signs Temp 97.9 F 01/10/25 08:00 Pulse 61 01/10/25 08:00 Resp 14 01/10/25 08:00 BP 116/60 01/10/25 08:00 Pulse Ox 95 01/10/25 08:00 O2 Del Method BiPAP 01/10/25 08:00 O2 Flow Rate 3 01/09/25 20:07 FiO2 40 01/10/25 07:54 01/09/25 01/10/25 01/10/25 22:59 06:59 14:59 Intake Total 1100 / 2240 300 / 2540 240 / 240 Output Total 2049 / 2049 2000 / 4050 Balance -950 / 190 -1700 / -1510 240 / 240 Weight last 48 hrs Weight 139.706 kg Weight 141 kg Physical Exam 2 Narrative: General: No acute distress, AO x3 HEENT: PERRLA, pupils bilaterally equal and reactive, pallors not present Chest: Normal vesicular breath sounds, no added sounds, equal good air entry bilaterally CVS: S1-S2 regular, no murmurs, no tachycardia, no gallops, no rubs Abdomen: Soft, nontender, no organomegaly, bowel sounds present Neuro: No focal deficits, no facial deformity, AO x3, power 5/5 in all limbs Urinary Catheter Management: Ayala: Cath Placed During This Visit: yes, but has since been removed by the nurse Reason for Continuing Indwelling Catheter: Acute Urinary Retention or Obstruction Urinary Catheter Date of Insertion: 01/06/25 Urinary Catheter Time of Insertion: 03:00 Date Urinary Catheter Removed: 01/06/25 Time Urinary Catheter Discontinued: 03:00 Data 01/10/25 02:57 01/10/25 02:57 Micro: Microbiology 01/08/25 18:30 Gram Stain - Final Sputum - Expectorated Sputum Sputum Culture - Preliminary Yeast species 01/09/25 06:06 Cryptococcal Antigen (Serum) - Final Blood 01/08/25 18:30 Bacterial Antigens - Final Urine,Voided A&P Assessment and plan (1) Metabolic encephalopathy: (2) Respiratory failure with hypoxia and hypercapnia: (3) CHINTAN (acute kidney injury): (4) Transaminitis: (5) Lower extremity ulceration: (6) Cellulitis: (7) Diabetes mellitus: (8) Heavy cigarette smoker: Plan 64 y/o M admitted for Sepsis 2/2 pneumonia. Continue close inpatient monitoring. For pneumonia, Will continue linezolid and meropenem to complete course. Breathing has improved. Encephalopathy is improving. More awake, alert, oriented. Will advance diet today. Cellulitis is improving currently. Recheck a.m. labs. Encouraged smoking cessation. Echo showed normal EF. Continue lactulose for constipation. Can add additional meds if needed. Code Status: Full IVF: None DVT PPx: heparin GI PPx: None ABx: Meropenem, Diet: ADAT Discharge plan: TBD. 01/08/25: Patient is a 64-year-old male with history of diabetes mellitus, hypertension, and prior prostate cancer surgery, chronic venous stasis, weeping lower extremity ulcers, congestive heart failure, diabetes, hypertension, heavy smoking, admitted on 01/01 with acute hypercapneic respiratory failure needing BIPAP ventilation. This was related to COPD exacerbation and acute on chronic diastolic CHF. Concern for PE on admission which has since been ruled out. He had elevtae dtroponins on admission ranging 90-100 with eventual downtrend. Received ASA, and heparin drip which was subsequently discontinued. Echo shoed LVEF 55%. For LE celluliti she started iv abx Zosyn and vancomycin. Hospital course has been notable for lethargy and significant deconditioning currently needing max assist, while just prior to admission he was reportedly able to drive and independent of ADLs. WBC count currently at 12.87. T max improved 99F after peaking at 102F on 01/05[place] [address] today. Evidence of DKA on admission with Anion gap of 22, which has since resolved. CTA chest negative for PE on 01/06. patchy aorspcae disease B/L ? multifocal PNA. reactive LAD noted. CT AP on admission with B/L GGOs. No acute abdominal findings. Blood cx negative since admission. Echo shows LVEF 55%, gr 1 diastolic function, trace MR, no RWMA. Plan: Atpuycal B/L infiltrates on CTA chest concerning for atypical infection, multifocal pneumonia per personal interpretation. Check sputum cx. bacterial Ag panel, legionella ag. MRSA nasal screen +, therefore staph pneumonia in the differentials. Falling platelet count may be related to recent heparin use, however will also r/o tick borne illness. Check tick panel, Add presumptove doxycycline. Reume methylprednisone 30mg iv every 8 hrs as patient is high risk of progression. H/o frequent travelling,. obtain coccidiodes serolgy, histoplasma serology and cryptococcus Ag to evaluet for other atypical process. Add beta blockers for tachycardia. D/c lisinopril to allow room on BP to add beta blockers. Resume lasix given anasarca. Dose optimize meropenem to 1g iv every 8 hrs from 500mg iv every 8 hrs currently. D/c Linezolid, change to vancomycin. Change insulin to high dose sliding scale. Change Duoneb to Xopenex/ipratropium January 09, 2025 Continue current antibiotics with meropenem, vancomycin and doxycycline. Currently on 3 L/min supplemental O2. Patient reports he uses as needed oxygen even at home. Reports that he has a portable concentrator which he carries in a backpack but does not like to wear his oxygen as it is cumbersome. Heart rate is better controlled today. Increase metoprolol to 25 mg p.o. twice daily. Reviewed patient's CAT scan with him quite extensively and showed him the extent of his bilateral infiltrates and pneumonia. Patient states that he has been in the hospital for about a week at this point in time and is suffering financial losses therefore he wants to leave by tomorrow. Discussed with him that he is significantly deconditioned and ongoing therapy will likely be flores to his sustained improvement, however patient states that he does not wish to do that. He states that he has several workers who will carry him and drive him to the [facility] state where there is a carnival. States that he will be leaving tomorrow and should any problem arise he will just visit the nearest hospital at that point in time. He is agreeable to staying in the hospital today Noted to have alkalosis, likely related to diuresis with Lasix. Hold next dose of Lasix. Instead we will use acetazolamide 500 mg for the afternoon dose. Recheck CMP with a.m. labs. Transfer out of ICU to CSU today. January 10, 2025 : Continue meropenem, change iv vancomcyin to po linezolid 600mg BID and doxycycline. Remains stable on 3lpm today. Alkalosis improved today with bicarb at 29. Change iv Lasix to po Bumex 2mg BID. LE with wraps on today. Sputum cx showing yeast, likely related to thrush also noted on exam today. Start Fluconazole 100mg daily for the same. No other bacterial growth so far. Pending fungal serology. Serum crytptococcal antigen negative. Participated with PT, still with significant deconditioning, planned d/c to [facility] in the upcoming 24-48 hrs if continues to improve. CHange iv methylprednisone to po Prednisone 60mg daily. PDMP PDMP Reviewed: Not Reviewed Attestations 2 Medical Necessity Statement*: Continued rehab, will benefit from ongoing therapy Coding Level of Care Code Acute Code for Chg Fwd Diagnoses Metabolic encephalopathy G93.41 Respiratory failure with hypoxia and hypercapnia J96.91; J96.92 CHINTAN (acute kidney injury) N17.9 Transaminitis R74.01 Lower extremity ulceration L97.909 Cellulitis L03.90 Diabetes mellitus E11.9 Heavy cigarette smoker F17.210
[2025-01-10] MEDS: linezolid 600 mg Tablet PO ×2 (13:56→23:37)
[2025-01-10] MEDS: acetaminophen 325 mg Tablet 650 MG PO (13:56)
[2025-01-10 17:07] LABS: Glucose Point of Care 255 mg/dL (70-110)
[2025-01-10] MEDS: bumetanide 1 mg Tablet 2 MG PO (17:46)
[2025-01-10 20:56] LABS: Glucose Point of Care 382 mg/dL (70-110)
[2025-01-11] VITALS (33 sets, daily range): BP systolic 123–158; BP diastolic 55–75; PULSE 75–109; RESP 14–24; TEMP 36.5–36.9; O2SAT 90–94; BMI 42.9
[2025-01-11] MEDS: levalbuterol 1.25 mg/3 mL Neb INHALATION ×4 (03:19→20:29)
[2025-01-11] MEDS: ipratropium 0.5 mg/2.5 mL Neb INHALATION ×4 (03:19→20:29)
[2025-01-11 03:44] LABS: Basophils % 0.2 %; Eosinophils # 0.2 10^3/uL (0.0-0.8); Eosinophils % 1.1 %; Hematocrit 41.3 % (37-53); Lymphocytes # 2.4 10^3/uL (0.8-4.8); Lymphocytes % 15.9 %; Mean Corpuscular HGB Conc 31.7 g/dL (30-55); Mean Corpuscular Hemoglobin 27.2 pg (27-33); Mean Corpuscular Volume 85.7 fl (82-101); Mean Platelet Volume 12.9 fL (7.4-10.4); Monocytes # 2.5 10^3/uL (0.2-0.9); Monocytes % 16.5 %; Neutrophils # 10.02 10^3/uL (1.8-7.7); Neutrophils % 65.3 %; Nucleated Red Blood Cells % 0 %; Platelet Count 177 10^3/cmm (157-399); Red Blood Count 4.82 10^6/uL (3.85-5.65); Red Cell Distribution Width 20.2 % (12.1-15.1); White Blood Count 15.33 10^3/uL (3.29-11.43)
[2025-01-11 04:10] LABS: Alanine Aminotransferase 98 U/L (0-41); Albumin Level 1.9 g/dL (3.5-5.2); Alkaline Phosphatase 140 U/L (40-130); Aspartate Amino Transferase 37 U/L (0-40); Blood Urea Nitrogen 30 mg/dL (8-23); Calcium 8.9 mg/dL (8.5-10.5); Carbon Dioxide 33 mmol/L (22-29); Chloride 92 mmol/L (98-107); Creatinine Clr Calc Pharmacy 129.8371; Glomerular Filtration Rate 134.8 mL/min (90-130); Glucose 294 mg/dL (65-115); Osmolality Calculated 295 mOsm/kg (285-295); Sodium 134 mmol/L (136-145); Total Bilirubin 0.7 mg/dL (0.15-1.2); Total Protein 4.9 g/dL (6.6-8.7)
[2025-01-11] MEDS: meropenem 1,000 mg SDV 1000 MG IVP ×3 (06:29→23:43)
[2025-01-11 06:37] LABS: Glucose Point of Care 133 mg/dL (70-110)
[2025-01-11 07:05] LABS: Lyme AB Screen <0.90 index
[2025-01-11] MEDS: heparin 5,000 unit/mL INJ 1 mL 5000 UNIT SUBCUT ×2 (08:28→20:55)
[2025-01-11] MEDS: acetaminophen 325 mg Tablet 650 MG PO (08:28)
[2025-01-11] MEDS: fluconazole 100 mg Tablet PO (08:28)
[2025-01-11] MEDS: nicotine 21 mg Patch 2 PATCH TRANSDERMA (08:29)
[2025-01-11] MEDS: gabapentin 300 mg Capsule 600 MG PO ×3 (08:29→20:54)
[2025-01-11] MEDS: predniSONE 20 mg Tablet 60 MG PO (08:29)
[2025-01-11] MEDS: bumetanide 1 mg Tablet 2 MG PO ×2 (08:29→16:41)
[2025-01-11] MEDS: buPROPion XL (24 HR) 300 mg Tablet PO (08:29)
[2025-01-11] MEDS: doxycycline 100 mg Tablet PO ×2 (08:30→16:42)
[2025-01-11] MEDS: insulin glargine 100 units/1 mL 30 UNIT SUBCUT (09:03)
[2025-01-11] MEDS: metoprolol tartrate 25 mg Tablet PO ×2 (09:04→20:42)
[2025-01-11] MEDS: budesonide 0.5 mg/2 mL Neb INHALATION ×2 (09:08→20:29)
[2025-01-11 11:32] LABS: Glucose Point of Care 428 mg/dL (70-110)
[2025-01-11] MEDS: linezolid 600 mg Tablet PO (12:21)
[2025-01-11] MEDS: insulin lispro 100 unit/1 mL SUBCUT ×3 (12:21→20:54)
--- NOTE | 2025-01-11 15:30 | P.PN_ITS ---
Subjective 2 Subjective: Clinically doing much better today. He is currently on room air, saturating 90%. Medications: Reviewed: Yes Vitals/I&O/Wt Last Vital Signs Temp 97.8 F 01/11/25 12:00 Pulse 76 01/11/25 13:53 Resp 16 01/11/25 13:53 BP 158/75 01/11/25 12:00 Pulse Ox 94 01/11/25 13:53 O2 Del Method Room Air 01/11/25 13:53 O2 Flow Rate 2 01/10/25 12:00 FiO2 40 01/10/25 07:54 01/11/25 01/11/25 01/11/25 06:59 14:59 22:59 Intake Total 740 / 740 Output Total 1900 / 5650 3850 / 3850 Balance -1900 / -4810 -3110 / -3110 Weight last 48 hrs Weight 139.706 kg Weight 139.706 kg Physical Exam 2 Narrative: General: No acute distress, AO x3 HEENT: PERRLA, pupils bilaterally equal and reactive, pallors not present Chest: Normal vesicular breath sounds, no added sounds, equal good air entry bilaterally CVS: S1-S2 regular, no murmurs, no tachycardia, no gallops, no rubs Abdomen: Soft, nontender, no organomegaly, bowel sounds present Neuro: No focal deficits, no facial deformity, AO x3, power 5/5 in all limbs Urinary Catheter Management: Ayala: Cath Placed During This Visit: yes, but has since been removed by the nurse Reason for Continuing Indwelling Catheter: Accurate Measurement of Urinary Output in Critically Ill Patients Urinary Catheter Date of Insertion: 01/06/25 Urinary Catheter Time of Insertion: 03:00 Date Urinary Catheter Removed: 01/06/25 Time Urinary Catheter Discontinued: 03:00 Data 01/11/25 02:37 01/11/25 02:37 Micro: Microbiology 01/08/25 18:30 Gram Stain - Final Sputum - Expectorated Sputum Sputum Culture - Preliminary Yeast species A&P Assessment and plan (1) Metabolic encephalopathy: (2) Respiratory failure with hypoxia and hypercapnia: (3) CHINTAN (acute kidney injury): (4) Transaminitis: (5) Lower extremity ulceration: (6) Cellulitis: (7) Diabetes mellitus: (8) Heavy cigarette smoker: Plan 64 y/o M admitted for Sepsis 2/2 pneumonia. Continue close inpatient monitoring. For pneumonia, Will continue linezolid and meropenem to complete course. Breathing has improved. Encephalopathy is improving. More awake, alert, oriented. Will advance diet today. Cellulitis is improving currently. Recheck a.m. labs. Encouraged smoking cessation. Echo showed normal EF. Continue lactulose for constipation. Can add additional meds if needed. Code Status: Full IVF: None DVT PPx: heparin GI PPx: None ABx: Meropenem, Diet: ADAT Discharge plan: TBD. 01/08/25: Patient is a 64-year-old male with history of diabetes mellitus, hypertension, and prior prostate cancer surgery, chronic venous stasis, weeping lower extremity ulcers, congestive heart failure, diabetes, hypertension, heavy smoking, admitted on 01/01 with acute hypercapneic respiratory failure needing BIPAP ventilation. This was related to COPD exacerbation and acute on chronic diastolic CHF. Concern for PE on admission which has since been ruled out. He had elevtae dtroponins on admission ranging 90-100 with eventual downtrend. Received ASA, and heparin drip which was subsequently discontinued. Echo shoed LVEF 55%. For LE celluliti she started iv abx Zosyn and vancomycin. Hospital course has been notable for lethargy and significant deconditioning currently needing max assist, while just prior to admission he was reportedly able to drive and independent of ADLs. WBC count currently at 12.87. T max improved 99F after peaking at 102F on 01/05[place] [address] today. Evidence of DKA on admission with Anion gap of 22, which has since resolved. CTA chest negative for PE on 01/06. patchy aorspcae disease B/L ? multifocal PNA. reactive LAD noted. CT AP on admission with B/L GGOs. No acute abdominal findings. Blood cx negative since admission. Echo shows LVEF 55%, gr 1 diastolic function, trace MR, no RWMA. Plan: Atpuycal B/L infiltrates on CTA chest concerning for atypical infection, multifocal pneumonia per personal interpretation. Check sputum cx. bacterial Ag panel, legionella ag. MRSA nasal screen +, therefore staph pneumonia in the differentials. Falling platelet count may be related to recent heparin use, however will also r/o tick borne illness. Check tick panel, Add presumptove doxycycline. Reume methylprednisone 30mg iv every 8 hrs as patient is high risk of progression. H/o frequent travelling,. obtain coccidiodes serolgy, histoplasma serology and cryptococcus Ag to evaluet for other atypical process. Add beta blockers for tachycardia. D/c lisinopril to allow room on BP to add beta blockers. Resume lasix given anasarca. Dose optimize meropenem to 1g iv every 8 hrs from 500mg iv every 8 hrs currently. D/c Linezolid, change to vancomycin. Change insulin to high dose sliding scale. Change Duoneb to Xopenex/ipratropium January 09, 2025 Continue current antibiotics with meropenem, vancomycin and doxycycline. Currently on 3 L/min supplemental O2. Patient reports he uses as needed oxygen even at home. Reports that he has a portable concentrator which he carries in a backpack but does not like to wear his oxygen as it is cumbersome. Heart rate is better controlled today. Increase metoprolol to 25 mg p.o. twice daily. Reviewed patient's CAT scan with him quite extensively and showed him the extent of his bilateral infiltrates and pneumonia. Patient states that he has been in the hospital for about a week at this point in time and is suffering financial losses therefore he wants to leave by tomorrow. Discussed with him that he is significantly deconditioned and ongoing therapy will likely be flores to his sustained improvement, however patient states that he does not wish to do that. He states that he has several workers who will carry him and drive him to the [facility] where there is a carnival. States that he will be leaving tomorrow and should any problem arise he will just visit the nearest hospital at that point in time. He is agreeable to staying in the hospital today Noted to have alkalosis, likely related to diuresis with Lasix. Hold next dose of Lasix. Instead we will use acetazolamide 500 mg for the afternoon dose. Recheck CMP with a.m. labs. Transfer out of ICU to [facility] today. January 10, 2025 : Continue meropenem, change iv vancomcyin to po linezolid 600mg BID and doxycycline. Remains stable on 3lpm today. Alkalosis improved today with bicarb at 29. Change iv Lasix to po Bumex 2mg BID. LE with wraps on today. Sputum cx showing yeast, likely related to thrush also noted on exam today. Start Fluconazole 100mg daily for the same. No other bacterial growth so far. Pending fungal serology. Serum crytptococcal antigen negative. Participated with PT, still with significant deconditioning, planned d/c to [facility] in the upcoming 24-48 hrs if continues to improve. CHange iv methylprednisone to po Prednisone 60mg daily. January 11, 2025 Respiratory status is improving today. He is saturating 90% on room air. Less tachypneic. Currently on Bumex 2 mg p.o. twice daily. Net negative by 8 L. Lower extremity edema remains resolved. Continue meropenem linezolid and fluconazole for today. Plan transition to Augmentin linezolid and fluconazole at discharge. Continued participation with PT is encouraged. Noted to have leukocytosis up to 15,000. He is afebrile, otherwise clinically looks improved. Suspect that this is related to high-dose steroid use. Now has been tapered down to prednisone 60 mg since respiratory status is improving. Will discontinue Ayala catheter. Awaiting transfer to LTAC.Increase lantus at 35U today. PDMP PDMP Reviewed: Not Reviewed Attestations 2 Medical Necessity Statement*: Awaiting discharge to LTAC, pending auth Coding Level of Care Code Acute Code for Chg Fwd Diagnoses Metabolic encephalopathy G93.41 Respiratory failure with hypoxia and hypercapnia J96.91; J96.92 CHINTAN (acute kidney injury) N17.9 Transaminitis R74.01 Lower extremity ulceration L97.909 Cellulitis L03.90 Diabetes mellitus E11.9 Heavy cigarette smoker F17.210
[2025-01-11 17:11] LABS: Glucose Point of Care 318 mg/dL (70-110)
[2025-01-11 20:44] LABS: Glucose Point of Care 319 mg/dL (70-110)
[2025-01-12] VITALS (33 sets, daily range): BP systolic 123–155; BP diastolic 55–82; PULSE 69–106; RESP 15–27; TEMP 36.3–36.8; O2SAT 87–99
[2025-01-12] MEDS: ipratropium 0.5 mg/2.5 mL Neb INHALATION ×2 (02:05→07:33)
[2025-01-12] MEDS: levalbuterol 1.25 mg/3 mL Neb INHALATION ×2 (02:05→07:33)
[2025-01-12 05:23] LABS: Basophils % 0.2 %; Eosinophils # 0.1 10^3/uL (0.0-0.8); Eosinophils % 0.6 %; Lymphocytes % 17.3 %; Mean Corpuscular Hemoglobin 27.1 pg (27-33); Mean Corpuscular Volume 84.7 fl (82-101); Monocytes # 2.7 10^3/uL (0.2-0.9); Monocytes % 15.4 %; Neutrophils # 11.18 10^3/uL (1.8-7.7); Neutrophils % 65.1 %; Nucleated Red Blood Cells % 0 %; Platelet Count 183 10^3/cmm (157-399); Red Blood Count 4.72 10^6/uL (3.85-5.65); Red Cell Distribution Width 20.3 % (12.1-15.1); White Blood Count 17.18 10^3/uL (3.29-11.43)
[2025-01-12 05:35] LABS: Alanine Aminotransferase 70 U/L (0-41); Albumin Level 2.4 g/dL (3.5-5.2); Alkaline Phosphatase 111 U/L (40-130); Blood Urea Nitrogen 24 mg/dL (8-23); Calcium 8.4 mg/dL (8.5-10.5); Carbon Dioxide 32 mmol/L (22-29); Chloride 97 mmol/L (98-107); Creatinine Clr Calc Pharmacy 126.0379; Globulin 2.3 g/dL (1.3-4.6); Glomerular Filtration Rate 166.4 mL/min (90-130); Glucose 186 mg/dL (65-115); Osmolality Calculated 295 mOsm/kg (285-295); Sodium 138 mmol/L (136-145); Total Bilirubin 0.9 mg/dL (0.15-1.2); Total Protein 4.7 g/dL (6.6-8.7)
[2025-01-12 05:45] LABS: Anion Gap 12.6 (5-19); Aspartate Amino Transferase 20 U/L (0-40); Potassium 3.6 mmol/L (3.5-5.1)
[2025-01-12] MEDS: meropenem 1,000 mg SDV 1000 MG IVP (06:13)
[2025-01-12 06:45] LABS: Glucose Point of Care 185 mg/dL (70-110)
[2025-01-12] MEDS: budesonide 0.5 mg/2 mL Neb INHALATION (07:33)
[2025-01-12] MEDS: insulin lispro 100 unit/1 mL SUBCUT ×2 (07:53→12:27)
[2025-01-12] MEDS: heparin 5,000 unit/mL INJ 1 mL 5000 UNIT SUBCUT (07:54)
[2025-01-12] MEDS: nicotine 21 mg Patch 2 PATCH TRANSDERMA (07:55)
[2025-01-12] MEDS: bumetanide 1 mg Tablet 2 MG PO (07:55)
[2025-01-12] MEDS: buPROPion XL (24 HR) 300 mg Tablet PO (07:55)
[2025-01-12] MEDS: metoprolol tartrate 25 mg Tablet PO (07:56)
[2025-01-12] MEDS: gabapentin 300 mg Capsule 600 MG PO (07:56)
[2025-01-12] MEDS: fluconazole 100 mg Tablet PO (07:56)
[2025-01-12] MEDS: predniSONE 20 mg Tablet 60 MG PO (07:56)
[2025-01-12] MEDS: doxycycline 100 mg Tablet PO (08:10)
--- NOTE | 2025-01-12 08:28 | PC.NURSE ---
patient to be noted 81% spo2 patient did not have o2 in place patient states I am going home no matter what to day I don't care who wants me to stay This nurse asked patient to put o2 back on and explained that his oxygen level is very low to which he responded yeah it will be ok patient continues to want to leave Nurse at bedside this nurse asked patient to speak with the provider prior to trying to leave
[2025-01-12] MEDS: insulin glargine 100 units/1 mL 35 UNIT SUBCUT (08:32)
--- NOTE | 2025-01-12 10:53 | P.DS_ITS ---
Discharge Providers Date of Admission: 01/01/25 11:11 Date of Discharge: January 12, 2025 Attending Provider at Admission: Gabino Mcnulty Attending Provider at Discharge: Honey Guzman MD Diagnoses at Discharge Discharge Diagnosis (1) Metabolic encephalopathy: Status: Acute (2) Respiratory failure with hypoxia and hypercapnia: Status: Acute (3) CHINTAN (acute kidney injury): Status: Acute (4) Transaminitis: Status: Acute (5) Lower extremity ulceration: Status: Acute (6) Cellulitis: Status: Acute (7) Diabetes mellitus: Status: Acute (8) Heavy cigarette smoker: Status: Acute Reason for Visit Reason for Visit: Stemi Brief History: Bhaskar Gandara is a 64 year old male with a history of diabetes, hypertension, and prior prostate cancer surgery, chronic venous stasis, weeping lower extremity ulcers, congestive heart failure, diabetes, hypertension, heavy smoking, presents after being weak, lethargic in his camper. Was brought over on behest of his caregivers/employees who have been traveling with him. The patient is part of a traveling [employer] group who have been planning to travel through [place] to [place], [place]. He normally resides in [place]. Over the past day or so, he has experienced red, swollen, weeping legs with ulcers, particularly on the left leg (distal third of the tibia and posteriorly) and swelling in the right leg as well. He reports chronic shortness of breath and cough, worsened over the last week, and a long history of heavy smoking (since age 5, currently still smoking heavily). The patient uses supplemental oxygen as needed but doesnt like to use it as often as needed due to difficulty getting around with it. He is supposed to use CPAP at night but does not use CPAP though this has been recommended. The patient lives in an , uses aquino for support when walking, and has assistance from an employee/friend. patient uses kratom for pain relief and has been counselled not to do this anymore. Hospital Course Hospital Course Patient was admitted to the hospital on January 01, 2025 with acute hypercapnic respiratory failure for which she needed BiPAP ventilation. This was related to a combination of acute on chronic COPD exacerbation and acute on chronic diastolic heart failure. There was concern for PE upon admission which has been ruled out with a CTA of the chest.He had elevtae dtroponins on admission ranging 90-100 with eventual downtrend. Received ASA, and heparin drip which was subsequently discontinued. Echo shoed LVEF 55%. Overall his elevated troponins were thought to be related to type II TN, acute stress and CHF exacerbation. He had thrombocytopenia on admission which has improved. Patient was also noted to have gross transaminitis upon admission with AST of 3400, this is improved from normal at 20. ALT was noted to be at 2900, resolved now improved to 70. Suspect this is related to hepatic congestion. Liver ultrasound showed irregular contour consistent with cirrhosis. No liver mass was identified. Gallbladder was reported normal. CTA of the chest was obtained which showed bilateral perihilar groundglass infiltrates. This was thought to be related to multifocal infectious infiltrates versus pulmonary edema. Patient received treatment with IV steroids, scheduled nebulization, and broad- spectrum antibiotics which included meropenem, vancomycin/linezolid and doxycycline to cover for possible tick mediated illness. Patient is now afebrile since January 06, 2025. Blood culture has remained negative during the course of his admission. Tick panel with the exception of Lyme antibody screen remains pending. Lyme screen is negative. Due to the atypical nature of GGO's and patient's extensive travel history, additional fungal workup was obtained including Coccidioides, Blastomyces and histoplasma serology. This remains pending at discharge, anticipated turnaround time of at least 5 to 7 days. We will call him with these results. His IV steroids were being weaned until 01/08/2025, however upon stopping the steroids he did develop worsening wheezing therefore he was restarted on methylprednisolone IV 60 mg. Patient's respiratory status is much improved compared to at admission. He is currently remaining on 3 L/min supplemental O2. He is able to carry on a full conversation without getting tachypneic or any respiratory distress. He was able to be moved out of the ICU. He has some remaining leukocytosis at 17,000, suspect this is related to high-dose steroid use given that he is otherwise clinically much improved and has been afebrile. For his CHF exacerbation he received diuresis with IV Lasix, transition to Bumex 1 mg p.o. twice daily at the time of discharge. He is net -21 L at the time of discharge. Kidney function is stable with a creatinine of 0.5. For his lower extremity wounds, thought to be related to stasis ulcerations he has been getting local wound care. Mupirocin topical ointment has been added at the time of discharge. Lower extremity Doppler was performed which showed monophasic waveforms with decreased velocities in the right infrapopliteal artery suggestive of stenosis. No signs of acute limb ischemia. To follow-up with primary care provider. Aspirin 81 mg p.o. daily has been added at discharge. Patient was severely deconditioned as a result of his acute severe illness. He worked with physical therapy during the course of admission and was recommended discharge to LTAC. Patient was planned to be discharged today to LT however the facility has now declined to take him at least until Wednesday citing concerns about the high white blood cell count which we have already attributed to high- dose steroid use. We discussed with the patient waiting until Wednesday for the LTAC to consider versus reaching out to other facilities in [place] closer to his home for appropriate disposition and ongoing rehab, however patient has refused this intervention at this time. He states that he is tired of his prolonged admission , has spent several days in the hospital and would not want to remain inpatient any longer. He states he will go home today. Please see case management notes regarding further attempts to arrange home health for the patient. He states that he has 2 employees who live in his camper and can assist him with his ADLs. He states that he hired employees to live with him 9 months ago because of his increasing deconditioning. We will attempt to arrange a wheelchair and appropriate DME at the time of discharge and patient is strongly recommended to return home after this admission instead of going through with his travel plans as he originally intended. Follow-up has been arranged with his primary care provider on January 16, 2025. Physical Exam Narrative: General: No acute distress, AO x3 HEENT: PERRLA, pupils bilaterally equal and reactive, pallors not present Chest: Normal vesicular breath sounds, no added sounds, equal good air entry bilaterally CVS: S1-S2 regular, no murmurs, no tachycardia, no gallops, no rubs Abdomen: Soft, nontender, no organomegaly, bowel sounds present Neuro: No focal deficits, no facial deformity, AO x3, power 5/5 in all limbs Extremities: Bilateral lower extremity ulceration noted, improved compared to admission. Lower extremity edema still persist however much improved compared to admission. Urinary Catheter Management: Ayala: Cath Placed During This Visit: yes, but has since been removed by the nurse Reason for Continuing Indwelling Catheter: Accurate Measurement of Urinary Output in Critically Ill Patients Urinary Catheter Date of Insertion: 01/06/25 Urinary Catheter Time of Insertion: 03:00 Date Urinary Catheter Removed: 01/06/25 Time Urinary Catheter Discontinued: 03:00 Discharge Data Studies Completed and Pending Completed Studies During Hospitalization Category [place] [id number] Stat Cat Scan 01/04/25 09:[address] head wo con* [id number] Urgent Cat Scan 01/04/25 08:17 Completed CTA PE [CT angio chest PE protcl [id number]] Routine Cat Scan 01/06/25 14:16 Completed CXRP [XR chest 1V portable [id number]] Routine Exams 01/02/25 12:36 Completed CXRP [XR chest 1V portable [id number]] Routine Exams 01/10/25 08:36 Completed XR chest 1V portable [id number] Stat Exams 01/01/25 08:25 [place] [id number] Routine Ultrasound 01/02/25 14:43 Completed CV. echo complete* [id number] Routine Ultrasound 01/02/25 13:49 [place] liver [id number] Routine Ultrasound 01/01/25 13:43 Completed US renal BI* [id number] Routine Ultrasound 01/02/25 14:46 Completed US venous duplex lower extremity bilat [CV venous Ultrasound 01/01/25 08:37 [place] [id number]] Stat Pending at discharge Category Date Time Status Blastomyces AB Panel CF and ID Routine Lab 01/09/25 06:06 Received Coccidioides AB CF Serum Routine Lab 01/09/25 06:06 Received Francisella tularensis IgM/IgG Routine Lab 01/09/25 06:06 Received Histoplasma Antibody Immunodif Routine Lab 01/09/25 06:06 Received Histoplasma Quantitative AG Routine Lab 01/08/25 18:30 Received PJP Qual Sputum [Pneumocystis jiroveci Qual PCR] Lab 01/09/25 08:31 Ordered Routine Sputum Culture and Gram Stain Routine Lab 01/08/25 18:30 Results Tick Panel Routine Lab 01/09/25 06:06 Results Radiology Impressions Liver Ultrasound 01/01/25 13:43 IMPRESSION: Hepatic cirrhosis Duplex Scan Lower Extremity Artery 01/02/25 14:43 IMPRESSION: 1. Study limitations as above. 2. Monophasic waveforms with decreased velocities in the right infrapopliteal arteries suggestive of at least moderate stenosis. 3. Monophasic waveform in the left posterior tibial artery with decreased velocity also suggestive of at least moderate stenosis. 4. ABIs unable to be obtained due to ulcerations. Renal Ultrasound 01/02/25 14:46 IMPRESSION: Technically difficult study due to bowel gas and body habitus 1. No hydronephrosis in either kidney. 2. Bladder is decompressed. Head CT 01/04/25 08:17 IMPRESSION: 1. No evidence of intracranial hemorrhage or mass effect. 2. No acute intracranial findings. Chest/Abdomen/Pelvis CT 01/04/25 09:03 IMPRESSION: Some images are limited in the abdomen and pelvis due to beam hardening artifact from arms down positioning and patient cooperation 1. Bilateral perihilar groundglass infiltrates. 2. Small RIGHT greater than LEFT pleural effusions with compressive atelectasis at the lung bases. 3. Hepatomegaly. 4. Ayala catheter. 5. Dense rectal constipation. 6. No hydronephrosis in either kidney. 7. No other acute abdominal findings considering limitations. Chest CTA 01/06/25 14:16 IMPRESSION: 1. No evidence of pulmonary artery emboli. 2. Patchy airspace opacities throughout the bilateral lungs, more prominent anteriorly. This may represent multifocal infectious infiltrates or less likely prominent pulmonary edema. 3. Small left and moderate-sized right pleural effusions, unchanged. 4. Moderate bibasilar consolidative atelectasis. 5. Mild multi chamber cardiomegaly. 6. Prominent sub threshold upper mediastinal lymph nodes, presumed reactive. 7. Partially imaged left adrenal hypertrophy. Chest X-Ray 01/10/25 08:36 Impression: No change in cardiomegaly, pulmonary vascular congestion and small bilateral pleural effusions. Laboratory Results WBC 17.18 10^3/uL (3.29-11.43) H 01/12/25 04:20 Corrected WBC Cancelled 01/09/25 04:15 RBC 4.72 10^6/uL (3.85-5.65) 01/12/25 04:20 Hgb 12.80 g/dL (11.27-16.99) 01/12/25 04:20 Hct 40.0 % (37-53) 01/12/25 04:20 MCV 84.7 fl (82-101) 01/12/25 04:20 MCH 27.1 pg (27-33) 01/12/25 04:20 MCHC 32.0 g/dL (30-55) 01/12/25 04:20 RDW 20.3 % (12.1-15.1) H 01/12/25 04:20 Plt Count 183 10^3/cmm (157-399) 01/12/25 04:20 MPV 11.0 fL (7.4-10.4) H 01/12/25 04:20 Gran % Cancelled 01/09/25 04:15 Neut % (Auto) 65.1 % 01/12/25 04:20 Lymph % (Auto) 17.3 % 01/12/25 04:20 [place] % (Auto) 15.4 % 01/12/25 04:20 Eos % (Auto) 0.6 % 01/12/25 04:20 Baso % (Auto) 0.2 % 01/12/25 04:20 Neut # (Auto) 11.18 10^3/uL (1.8-7.7) H 01/12/25 04:20 Lymph # (Auto) 3.0 10^3/uL (0.8-4.8) 01/12/25 04:20 [place] # (Auto) 2.7 10^3/uL (0.2-0.9) H 01/12/25 04:20 Eos # (Auto) 0.1 10^3/uL (0.0-0.8) 01/12/25 04:20 Baso # (Auto) 0.0 10^3/uL (0.0-0.1) 01/12/25 04:20 Absolute Gran (auto) Cancelled 01/09/25 04:15 Nucleated RBC % (auto) 0 % 01/12/25 04:20 Nucleated RBCs # 0.0 /100WBC 01/12/25 04:20 PT 20.40 SECONDS (12.1-14.9) H 01/02/25 06:52 INR 1.64 (0.8-1.2) H 01/02/25 06:52 APTT 132.9 SECONDS (23.9-36.7) H 01/06/25 20:24 D-Dimer 4.32 ug/mLFEU (0-0.59) H 01/01/25 13:56 Specimen Type Arterial 01/02/25 15:04 Sample Site Radial, right 01/02/25 15:04 ABG pH 7.25 (7.35-7.45) L 01/02/25 15:04 ABG pCO2 78.3 mmHg (35-45) H* 01/02/25 15:04 ABG pO2 75.3 mmHg (80.0-100.0) L 01/02/25 15:04 ABG PO2/FiO2 Ratio 150 01/02/25 15:04 ABG HCO3 34.1 mmol/L (22-26) H 01/02/25 15:04 ABG O2 Saturation 89.5 01/01/25 08:35 ABG Base Excess 4.0 mmol/L (-2.0-2.0) H 01/02/25 15:04 Kt Test Pos 01/02/25 15:04 A-a O2 Gradient 12.3 mmHg (5-10) H 01/01/25 08:35 Hematocrit 43.3 % (42-52) 01/02/25 15:04 Hgb O2 Saturation 83.4 % (95-100) L 01/01/25 08:35 Carboxyhemoglobin 7.0 %THgb (0.4-20.1) 01/01/25 08:35 Methemoglobin < 0.0 % (0.4-1.5) L 01/01/25 08:35 Total Hemoglobin 15.0 g/dL (14-18) 01/01/25 08:35 Sodium 143.0 mmol/L (131-143) 01/01/25 08:35 Potassium 5.1 mmol/L (3.5-5.0) H 01/01/25 08:35 Glucose 295.0 mg/dL (70-115) H 01/01/25 08:35 Ionized Calcium 1.2 mmol/L (1.1-1.4) 01/01/25 08:35 O2 Delivery Device Bipap 01/02/25 15:04 O2 Liters/Min 3.0 % 01/01/25 08:35 FiO2 50.0 % 01/02/25 15:04 Spinning Lathe Operator ID Cak 01/02/25 15:04 Sodium 138 mmol/L (136-145) 01/12/25 04:20 Potassium 3.6 mmol/L (3.5-5.1) 01/12/25 04:20 Chloride 97 mmol/L (98-107) L 01/12/25 04:20 Carbon Dioxide 32 mmol/L (22-29) H 01/12/25 04:20 Anion Gap 12.6 (5-19) 01/12/25 04:20 BUN 24 mg/dL (8-23) H 01/12/25 04:20 Creatinine 0.5 mg/dL (0.7-1.2) L 01/12/25 04:20 GFR Calculation 166.4 mL/min (90-130) H 01/12/25 04:20 Glucose 186 mg/dL (65-115) H 01/12/25 04:20 POC Glucose 185 mg/dL (70-110) H 01/12/25 06:35 Estimat Average Glucose 192 01/01/25 09:22 Hemoglobin A1c 8.3 % (4.0-6.0) H 01/01/25 09:22 Calculated Osmolality 295 mOsm/kg (285-295) 01/12/25 04:20 Lactic Acid Cancelled 01/01/25 08:31 Lactic Acid (Sepsis) 3.5 mmol/L (0.5-2.2) H 01/01/25 11:55 Lactate 3.9 mmol/L (0.5-2.2) H 01/01/25 09:22 Calcium 8.4 mg/dL (8.5-10.5) L 01/12/25 04:20 Magnesium 1.7 mg/dL (1.7-2.3) 01/07/25 05:07 Total Bilirubin 0.9 mg/dL (0.15-1.2) 01/12/25 04:20 AST 20 U/L (0-40) 01/12/25 04:20 ALT 70 U/L (0-41) H 01/12/25 04:20 Alkaline Phosphatase 111 U/L (40-130) 01/12/25 04:20 Ammonia 25 umol/L (16-60) 01/04/25 04:07 Creatine Kinase 64 U/L (39-308) 01/05/25 03:55 Troponin T Baseline 102 ng/L (0-15) H* 01/01/25 09:22 Troponin T 120 Minute Cancelled 01/01/25 13:56 Delta Troponin T Cancelled 01/01/25 13:56 Troponin T Hi Sens 6Hr 95.06 ng/L (0-15) H 01/01/25 15:28 Troponin T Hi Sens 6Hr Delta -6.94 ng/L (0-12) L 01/01/25 15:28 NT-Pro-B Natriuret Pep 4572 pg/mL (0-125) H 01/01/25 09:22 Total Protein 4.7 g/dL (6.6-8.7) L 01/12/25 04:20 Albumin 2.4 g/dL (3.5-5.2) L 01/12/25 04:20 Globulin 2.3 g/dL (1.3-4.6) 01/12/25 04:20 Procalcitonin 0.76 ng/mL (0-0.5) H 01/01/25 09:22 Urine Color Dark yellow (Yellow) A 01/01/25 13:45 Urine Appearance Cloudy (CLEAR) A 01/01/25 13:45 Urine pH 5.0 (5-7) 01/01/25 13:45 Ur Specific [place] 1.019 (1.005-1.030) 01/01/25 13:45 Urine Protein 2+ (Negative) A 01/01/25 13:45 Urine Glucose (UA) Negative (Normal) 01/01/25 13:45 Urine Ketones Negative (Negative) 01/01/25 13:45 Urine Blood 2+ (Negative) A 01/01/25 13:45 Urine Nitrate Negative (Negative) 01/01/25 13:45 Urine Bilirubin Negative (Negative) 01/01/25 13:45 Urine Urobilinogen 1.0 mg/dL (Negative) 01/01/25 13:45 Ur Leukocyte Esterase Trace (Negative) A 01/01/25 13:45 Urine RBC 0-2 /hpf (0-2) 01/01/25 13:45 Urine WBC 0-5 /hpf (0-5) 01/01/25 13:45 Ur Squamous Epith Cells 0-5 /hpf (0-5) 01/01/25 13:45 Amorphous Sediment Not Reportable 01/01/25 13:45 Urine Bacteria None seen /hpf (NONE) 01/01/25 13:45 Hyaline Casts 42.19 /lpf 01/01/25 13:45 CSF Lyme IgG Ab 45 kDa Cancelled 01/09/25 04:15 Nasal MRSA (PCR) Mrsa detected (Negative) A 01/08/25 05:17 Vancomycin Trough 16.3 ug/mL (10-15) H 01/09/25 17:30 Urine Opiates Screen Negative ng/mL (Negative) 01/01/25 13:45 Ur Barbiturates Screen Negative ng/mL (Negative) 01/01/25 13:45 Ur Phencyclidine Scrn Negative ng/mL (Negative) 01/01/25 13:45 Ur Amphetamines Screen Negative ng/mL (Negative) 01/01/25 13:45 U Benzodiazepines Scrn Negative ng/mL (Negative) 01/01/25 13:45 Urine Cocaine Screen Negative ng/mL (Negative) 01/01/25 13:45 U Marijuana (THC) Screen Negative ng/mL (Negative) 01/01/25 13:45 Serum Ketones Negative (Negative) 01/01/25 09:22 Adenovirus (PCR) Not detected (NOT DETECT) 01/04/25 14:43 B. dermatitidis Ab Cancelled 01/09/25 04:15 Blastomyces Ab Immdiff Cancelled 01/09/25 04:15 Lyme Ab (Western Blot) <0.90 index 01/09/25 06:06 Lyme IgG 18 kDa Band Cancelled 01/09/25 04:15 Lyme IgG 23 kDa Band Cancelled 01/09/25 04:15 Lyme IgG 28 kDa Band Cancelled 01/09/25 04:15 Lyme IgG 30 kDa Band Cancelled 01/09/25 04:15 Lyme IgG 39 kDa Band Cancelled 01/09/25 04:15 Lyme IgG 41 kDa Band Cancelled 01/09/25 04:15 Lyme IgG 58 kDa Band Cancelled 01/09/25 04:15 Lyme IgG 66 kDa Band Cancelled 01/09/25 04:15 Lyme IgG 93 kDa Band Cancelled 01/09/25 04:15 Lyme IgM Ab (WB) Cancelled 01/09/25 04:15 Lyme Disease IgG Ab (IFA) Cancelled 01/09/25 04:15 Lyme IgG Ab (Immblot) Cancelled 01/09/25 04:15 Lyme IgM 23 kDa Band Cancelled 01/09/25 04:15 Lyme IgM 39 kDa Band Cancelled 01/09/25 04:15 Lyme IgM 41 kDa Band Cancelled 01/09/25 04:15 C. pneumoniae DNA (PCR) Not detected (NOT DETECT) 01/04/25 14:43 Coccidioides immitis CF Cancelled 01/09/25 04:15 Coronavirus 229E (PCR) Not detected (NOT DETECT) 01/04/25 14:43 E. chaffeensis IgG Ab Cancelled 01/09/25 04:15 E. chaffeensis IgM Ab Cancelled 01/09/25 04:15 E. chaffeensis Interp Cancelled 01/09/25 04:15 E. chaffeensis Comment Cancelled 01/09/25 04:15 F. tularensis IgG Ab Cancelled 01/09/25 04:15 F. tularensis IgM Ab Cancelled 01/09/25 04:15 F. tularensis Interpretation Cancelled 01/09/25 04:15 Hepatitis A IgM Ab Non-reactive (Nonreactive) 01/01/25 09:22 Hep Bs Antigen Non-reactive (Nonreactive) 01/01/25 09:22 Hep B Core IgM Ab Non-reactive (Nonreactive) 01/01/25 09:22 Hepatitis C Antibody Non-reactive (Nonreactive) 01/01/25 09:22 Histo Mycel H Protein Cancelled 01/09/25 04:15 Histo Mycel M Protein Cancelled 01/09/25 04:15 HIV 1&2 Ab & HIV 1 Ag Non-reactive (Non-Reactiv) 01/01/25 09:22 HIV 1&2 Antibody Non-reactive (Non-Reactiv) 01/01/25 09:22 Human Metapneumovir PCR Not detected (NOT DETECT) 01/04/25 14:43 Influenza A (H1) PCR Not detected (NOT DETECT) 01/04/25 14:43 Influ A (H1/09) PCR Not detected (NOT DETECT) 01/04/25 14:43 Influenza A (H3) PCR Not detected (NOT DETECT) 01/04/25 14:43 Influenza Type A (PCR) Not detected (NOT DETECT) 01/04/25 14:43 Influenza Type B (PCR) Not detected (NOT DETECT) 01/04/25 14:43 M. pneumoniae (PCR) Not detected (NOT DETECT) 01/04/25 14:43 Parainfluenza 1 (PCR) Not detected (NOT DETECT) 01/04/25 14:43 Parainfluenza 2 (PCR) Not detected (NOT DETECT) 01/04/25 14:43 Parainfluenza 3 (PCR) Not detected (NOT DETECT) 01/04/25 14:43 Parainfluenza 4 (PCR) Not detected (NOT DETECT) 01/04/25 14:43 RSV Type A (PCR) Not detected (NOT DETECT) 01/04/25 14:43 RSV Type B (PCR) Not detected (NOT DETECT) 01/04/25 14:43 Entero/Rhino (PCR) Not detected (NOT DETECT) 01/04/25 14:43 Rickettsia IgG Titer Cancelled 01/09/25 04:15 Rickettsia IgG Ab Cancelled 01/09/25 04:15 Rickettsia IgM Titer Cancelled 01/09/25 04:15 Rickettsia IgM Ab Cancelled 01/09/25 04:15 SARS-CoV-2 (PCR) Not detected (NOT DETECT) 01/04/25 14:43 Vitals Last Vital Signs Temp 97.3 F L 01/12/25 08:00 Pulse 70 01/12/25 08:00 Resp 16 01/12/25 08:00 BP 155/82 01/12/25 08:00 Pulse Ox 98 01/12/25 08:00 O2 Del Method BiPAP 01/12/25 08:00 O2 Flow Rate 2 01/10/25 12:00 FiO2 30 01/12/25 04:43 Discharge Plan Discharge Patient Disposition: Home Condition: Stable Prescriptions: New acetaminophen 325 mg Tablet 650 mg PO Q6H PRN (Reason: Fever or mild pain) Qty: 30 0RF doxycycline monohydrate 100 mg Tablet 100 mg PO BID 7 Days Qty: 14 0RF budesonide 0.5 mg/2 mL Suspension For Nebulization 0.5 mg inhalation BID.RESPIRATORY Qty: 60 0RF bumetanide 1 mg Tablet 1 mg PO BID Qty: 30 0RF fluconazole 100 mg Tablet 100 mg PO DAILY 7 Days Qty: 7 0RF gabapentin 300 mg Capsule 600 mg PO TID 30 Days Qty: 180 0RF linezolid 600 mg Tablet 600 mg PO Q12H 7 Days Qty: 14 0RF ipratropium bromide 0.02 % Solution 0.5 mg inhalation Q6H.RESP Qty: 75 0RF metoprolol tartrate 25 mg Tablet 25 mg PO BID@0900,2100 30 Days Qty: 60 0RF prednisone 20 mg Tablet See Taper .ROUTE .COMPLEX Qty: 30 0RF Taper: predniSONE 60-10 40 mg Daily for 2 Days and 0 Hour 30 mg Daily for 2 Days and 0 Hour 20 mg Daily for 2 Days and 0 Hour 10 mg Daily for 2 Days and 0 Hour Rx Instructions: TAPER: 40 mg daily for 2 Days; 30 mg daily for 2 Days; 20 mg daily for 2 Days; 10 mg daily for 2 Days levalbuterol HCl 1.25 mg/3 mL Solution For Nebulization 1.25 mg inhalation Q6H.RESP 30 Days Qty: 360 0RF amoxicillin-pot clavulanate 875-125 mg tablet 1 tab PO BID 7 Days Qty: 14 0RF Continued gabapentin 600 mg tablet 1,200 mg PO TID prednisone 20 mg tablet See Rx Instructions .ROUTE .COMPLEX Rx Instructions: TAKE 2 TABLETS BY MOUTH ONCE DAILY FOR 5 DAYS THEN 1 ONCE DAILY FOR 5 DAYS THEN 1/2 (ONE-HALF) ONCE DAILY FOR 5 DAYS. bupropion HCl 300 mg tablet extended release 24 hr 300 mg PO QAM Changed lisinopril 20 mg tablet 20 mg PO DAILY 30 Days Qty: 0 0RF Discontinued ipratropium-albuterol 0.5 mg-3 mg(2.5 mg base)/3 mL solution for nebulization 3 ml INHALATION Q6H PRN (Reason: Shortness Of Breath) spironolactone 25 mg tablet 25 mg PO DAILY cephalexin 500 mg capsule 500 mg PO Q8H doxycycline hyclate 100 mg tablet 100 mg PO BID Discharge Orders: Discharge Order (Routine); Ordered 01/12/25 Ordered By: Honey Guzman Referrals: Dr. Real Seay [Other, Primary Care Provider] - 01/16/25 8:30 am Patient Instructions: Metoprolol (By mouth) (Lopressor, Toprol XL), Bumetanide (By mouth) (Bumex), Doxycycline (By mouth), Acetaminophen (By mouth) (Acetaminophen Children's, Acetaminophen..., Ipratropium (By breathing), Prednisone (By mouth), Amoxicillin (By mouth), Fluconazole (By mouth), Gabapentin (By mouth), Budesonide (By breathing), Levalbuterol (By breathing) (Xopenex, Xopenex HFA, Xopenex Pediatric), Linezolid (By mouth) (Zyvox), Insulin Glargine (By injection) (Lantus, Lantus SoloStar, Toujeo, Semglee), Acute Kidney Injury (DC), Cellulitis (GEN), CHF Stoplight, Opioid Safety Discharge Attestations Time Spent in Discharge Care*: greater than 30 min Quality Metrics Clinical Quality Measures [ No reported AMI, CVA or VTE this stay] Coding Level of Care Code Acute Code for Chg Fwd Diagnoses Metabolic encephalopathy G93.41 Respiratory failure with hypoxia and hypercapnia J96.91; J96.92 CHINTAN (acute kidney injury) N17.9 Transaminitis R74.01 Lower extremity ulceration L97.909 Cellulitis L03.90 Diabetes mellitus E11.9 Heavy cigarette smoker F17.210
[2025-01-12 11:22] LABS: Glucose Point of Care 289 mg/dL (70-110)
[2025-01-12] MEDS: linezolid 600 mg Tablet PO (12:27)
--- NOTE | 2025-01-12 13:17 | PC.NURSE ---
pt intent on discharge because i have to get back to work! discharge medications provided by meds to beds program.discharge instructions given and explained.pt verb understanding of instructions.discharged via w/c to vehicle.pt's friend to drive him home
[2025-01-12 22:25] LABS: F.tularensis IgG AB Serum Negative (Negative); F.tularensis IgM AB Serum Negative (Negative)
[2025-01-14 15:49] LABS: Blastomyces AB Immunodiffusion Negative (Negative); Blastomyces Dermatitidis AB <1:8 titer (<1:8)
[2025-01-14 19:59] LABS: Coccidioides AB CF Serum <1:2
[2025-01-15 18:35] LABS: Histoplasma capsulatum H Ab NEGATIVE; Histoplasma capsulatum M Ab NEGATIVE
[2025-01-15 18:50] LABS: RMSF IGG NOT DETECTED; RMSF IGM NOT DETECTED
[2025-01-16 17:30] LABS: E. Chaffeensis AB IGG <1:64; E. Chaffeensis AB IGM <1:20
== END 2025-01-12 13:00 | disposition home or self-care (01) | DRG 871 ==
LOC: ER 09:28 → ICU 11:12 → CSU 01-09 10:19
PROVIDERS: Family Medicine; Internal Medicine; Student in an Organized Health Care Education/Training Program; Admitting Provider Internal Medicine; Emergency Provider Family Medicine; Visit Provider Student in an Organized Health Care Education/Training Program
DX: A41.9 Sepsis, unspecified organism (principal); G93.41 Metabolic encephalopathy; I21.A1 Myocardial infarction type 2; I50.33 Acute on chronic diastolic (congestive) heart failure; J96.02 Acute respiratory failure with hypercapnia; J96.01 Acute respiratory failure with hypoxia; J18.9 Pneumonia, unspecified organism; I13.0 Hypertensive heart and chronic kidney disease with heart failure and stage 1 through stage 4 chronic kidney disease, or unspecified chronic kidney disease; J44.1 Chronic obstructive pulmonary disease with (acute) exacerbation; N17.9 Acute kidney failure, unspecified; L03.90 Cellulitis, unspecified; L97.902 Non-pressure chronic ulcer of unspecified part of unspecified lower leg with fat layer exposed; J44.0 Chronic obstructive pulmonary disease with (acute) lower respiratory infection; E87.3 Alkalosis; E11.9 Type 2 diabetes mellitus without complications; F17.210 Nicotine dependence, cigarettes, uncomplicated; D69.6 Thrombocytopenia, unspecified; K76.1 Chronic passive congestion of liver; R74.01 Elevation of levels of liver transaminase levels; I10 Essential (primary) hypertension; E66.9 Obesity, unspecified; E87.6 Hypokalemia; Z79.899 Other long term (current) drug therapy; Z79.52 Long term (current) use of systemic steroids; I87.2 Venous insufficiency (chronic) (peripheral); K59.00 Constipation, unspecified
CPT/HCPCS: 36415; 36416; 36573; 36592; 36600; 51702; 51798; 70450; 71045; 71250; 71275; 74176; 76705; 76770; 80051; 80053; 80074; 80202; 80306; 81001; 82009; 82140; 82330; 82550; 82803; 82805; 82962; 83036; 83605; 83735; 83880; 84132; 84145; 84484; 85025; 85378; 85610; 85730; 86160; 86403; 86612; 86618; 86635; 86666; 86668; 86698; 86757; 87040; 87070; 87205; 87385; 87449; 87486; 87581; 87633; 87806; 93005; 93306; 93925; 93970; 94640; 94660; 96365; 96372; 96375; 96376; 97110; 97116; 97163; 97165; 97530; 97535; 99285; C1751; J0360; J0692; J1644; J1650; J1815; J1938; J2020; J2185; J2405; J2543; J2919; J3370; J3372; J3480; J3490; J7040; J7050; J7060; J7070; J7512; J7614; J7626; J7644; J9999; P9046; P9047

== ENCOUNTER 2025-01-19 08:50 | Emergency (ER) | payer MEDICAID, SELFPAY ==
[2025-01-19 08:52] VITALS: BP 141/82; PULSE 90; RESP 16; TEMP 36.8; O2SAT 93; BMI 38.9
[2025-01-19 09:03] LABS: Glucose Point of Care 60 mg/dL (70-110)
--- NOTE | 2025-01-19 09:07 | XR_ITS ---
WS: [id number] Portable AP semiupright chest, 01/19/2025 Clinical Data: ams, hypoglycemia Comparison: Portable chest, 01/10/2025 Findings: The pulmonary vascularity is less prominent. There is minimal patchy opacity in the right lower lobe which could represent atelectasis, effusion and/or pneumonia. No nodules or masses are seen. The heart is enlarged. No pneumothorax is seen. The aortic arch is tortuous. PICC line has been removed. XR/XR chest 1V portable [id number] Impression: 1. No change in cardiomegaly. 2. Clearing of pulmonary vascular congestion. 3. Patchy opacity in right lung lower lobe which could represent atelectasis, e ffusion and/or pneumonia.
--- NOTE | 2025-01-19 09:07 | W.ED.GENADLT ---
HPI - General Adult General: Chief complaint: Altered Mental Status Stated complaint: LOW SUGAR Time Seen by Provider: 01/19/25 08:57 Source: patient Mode of arrival: EMS Limitations: no limitations History of Present Illness: Patient is a 64-year-old male who presents to ED today via EMS for evaluation of hypoglycemia. Patient states upon arrival he feels normal. He was reportedly given glucagon by EMS and route. Patient states that he has individuals that are residing with him in his trailer and they must of contacted EMS but not sure why. They are reportedly on their way here. Patient states I wish they would have just given me a piece of candy and I would have been fine and would not have had to come here . Patient just released from hospital a week ago for multiple issues. PMH includes: diabetes, hypertension, and prior prostate cancer surgery, chronic venous stasis, weeping lower extremity ulcers, congestive heart failure, diabetes, hypertension, heavy smoking, hypercapnic respiratory failure, cirrhosis, among others Onset (ago): hour(s) Severity: moderate Relieving factors: other (glucagon given by EMS) Exacerbating factors: none Associated symptoms: Reports no associated symptoms; Deny chest pain, dyspnea, headache(s), malaise, nausea, palpitations or vomiting Related Data Home Medications ?Medication ?Instructions ?Recorded ?Confirmed bupropion HCl 300 mg 24 hr tablet, 300 mg PO QAM 01/01/25 01/01/25 extended release gabapentin 600 mg tablet 1,200 mg PO TID 01/01/25 01/01/25 prednisone 20 mg tablet See Rx Instructions .Route .COMPLEX 01/01/25 01/01/25 Previous Rx's ?Medication ?Instructions ?Recorded acetaminophen 325 mg tablet 650 mg (2 x 325 mg) PO Q6H PRN 01/11/25 Fever or mild pain #30 tabs budesonide 0.5 mg/2 mL suspension 0.5 mg (2 mL) inhalation 01/11/25 for nebulization BID.RESPIRATORY #60 mL bumetanide 1 mg tablet 1 mg PO BID #30 tabs 01/11/25 gabapentin 300 mg capsule 600 mg (2 x 300 mg) PO TID 30 days 01/11/25 #180 caps ipratropium bromide 0.02 % 0.5 mg (2.5 mL) inhalation 01/11/25 solution for inhalation Q6H.RESP #75 mL levalbuterol HCl 1.25 mg/3 mL 1.25 mg (3 mL) inhalation Q6H.RESP 01/11/25 solution for nebulization 30 days #360 mL metoprolol tartrate 25 mg tablet 25 mg PO BID@0900,2100 30 days #60 01/11/25 tabs prednisone 20 mg tablet See Taper .Route .COMPLEX #30 tabs 01/11/25 aspirin 81 mg tablet,delayed 81 mg PO DAILY #30 tabs 01/12/25 release lisinopril 20 mg tablet 20 mg PO DAILY 30 days #0 tabs 01/12/25 mupirocin 2 % topical ointment 1 applic topical DAILY 30 days #15 01/12/25 (Centany) grams Allergies Allergy/AdvReac Type Severity Reaction Status Date / Time No Known Allergies Allergy Verified 01/01/25 08:33 Review of Systems Const: Reports: other (generalized weakness from sitting in a hospital bed for a week ); Denies: fever(s), chills, body aches, fatigue or malaise Eyes: Denies: change in vision Card: Denies: chest pain, palpitations or irregular heart rhythm Resp: Denies: dyspnea GI: Denies: abdominal pain, nausea, vomiting or change in bowel habits : Denies: flank pain, dysuria or hematuria Musc: Reports: extremity swelling (chronic); Denies: neck pain or back pain Skin/Breast: Reports: erythema and other (chronic wounds to bilateral LEs) Neuro: Denies: headache(s) or dizziness PFSH ED PFSH: Medical History Heavy cigarette smoker CHF (congestive heart failure) Obesity Venous stasis of lower extremity Hypertension Diabetes mellitus Social History Smoking and tobacco/nicotine status: current every day tobacco/nicotine user 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 Physical Exam Const: COMMON NORMALS: no acute distress, patient oriented x3, no limitations and alert GENERAL APPEARANCE: cooperative NUTRITIONAL APPEARANCE: obese ORIENTATION/CONSCIOUSNESS: Yes awake, Yes oriented to person, Yes oriented to place and Yes oriented to time OTHER: pt is obese and significantly deconditioned HENMT: COMMON NORMALS: normocephalic and atraumatic HEAD & SCALP: normal to inspection, normocephalic and atraumatic FACE & SINUS: normal facial exam and face symmetric Eye: GENERAL EYE: appearance normal, both eyes and all related structures Neck/C-Spine: COMMON NORMALS: full ROM, no lymphadenopathy and no meningeal signs GENERAL: Yes normal visual inspection Chest: COMMONS NORMALS: normal inspection of the chest and normal palpation of entire chest wall Resp: COMMON NORMALS: normal respiratory effort and clear to auscultation bilaterally AUSCULTATION: clear to auscultation bilaterally Cardio: COMMON NORMALS: regular rate and regular rhythm RATE: regular rate RHYTHM: regular rhythm GI: COMMON NORMALS: Soft to palpation and non-tender PALPATION: Yes Soft to palpation Extremity: GENERAL: Yes normal exam except as noted OTHER: pt has chronic bilateral symmetrical edema to lower legs with chronic stasis changes and multiple superficial ulcers/wounds Neuro: COMMON NORMALS: patient oriented x3, moves all extremities, no focal motor deficits and no sensory deficits noted SENSORIUM/ORIENTATION: Yes alert, Yes oriented to person, Yes oriented to place and Yes oriented to time MENINGEAL SIGNS: Yes no meningeal signs Course Vital Signs: Vital signs: Vital Signs Temperature 98.2 F 01/19/25 08:52 Pulse Rate 97 01/19/25 11:30 Respiratory Rate 16 01/19/25 11:30 Blood Pressure 173/88 01/19/25 11:30 Pulse Oximetry 97 01/19/25 11:30 Oxygen Delivery Me thod Room Air 01/19/25 09:30 MDM - General Adult Medical Decision Making Patient is a 64-year-old male with multiple comorbidities here after an episode of hypoglycemia this morning. He was given glucagon by EMS and upon arrival states he feels fine . He has been asymptomatic throughout his stay. Patient was just released from the hospital approximately a week ago. At time of discharge he was placed on steroids as well as 3 different antibiotics-linezolid, doxycycline, augmentin. Patient overall is very physically deconditioned and does not seem to care for himself well. He states he travels for [employer]. Patient states she wants to go home as they are traveling to [place] on Wednesday. He has chronic wounds to his legs that he feels are improved but would like them dressed today. Labs today showing a declining white count from admission (he is on steroids). Other minor abnormalities but nothing actionable. UA clear. CXR showing possible atelectasis/effusion/pneumonia. Looks like these were present on CTA imaging and probably more chronic vs active pneumonia. He does occasionally wear oxygen at home. Again, at this point patient wants to go home. I do not have any clear indication for admission thus he will be allowed discharge. Return precautions discussed. Medical Records I reviewed the patient's medical records. Lab Data I reviewed the patient's lab results. 01/19/25 09:11 01/19/25 08:53 Radiology Impressions Chest X-Ray 01/19/25 09:07 Impression: 1. No change in cardiomegaly. 2. Clearing of pulmonary vascular congestion. 3. Patchy opacity in right lung lower lobe which could represent atelectasis, effusion and/or pneumonia. Laboratory Results WBC 15.24 10^3/uL (3.29-11.43) H 01/19/25 09:11 RBC 5.16 10^6/uL (3.85-5.65) 01/19/25 09:11 Hgb 14.50 g/dL (11.27-16.99) 01/19/25 09:11 Hct 47.0 % (37-53) 01/19/25 09:11 MCV 91.1 fl (82-101) 01/19/25 09:11 MCH 28.1 pg (27-33) 01/19/25 09:11 MCHC 30.9 g/dL (30-55) 01/19/25 09:11 RDW 23.9 % (12.1-15.1) H 01/19/25 09:11 Plt Count 260 10^3/cmm (157-399) 01/19/25 09:11 MPV 11.7 fL (7.4-10.4) H 01/19/25 09:11 Neut % (Auto) 86.3 % 01/19/25 09:11 Lymph % (Auto) 7.8 % 01/19/25 09:11 [place] % (Auto) 5.1 % 01/19/25 09:11 Eos % (Auto) 0.1 % 01/19/25 09:11 Baso % (Auto) 0.1 % 01/19/25 09:11 Neut # (Auto) 13.16 10^3/uL (1.8-7.7) H 01/19/25 09:11 Lymph # (Auto) 1.2 10^3/uL (0.8-4.8) 01/19/25 09:11 [place] # (Auto) 0.8 10^3/uL (0.2-0.9) 01/19/25 09:11 Eos # (Auto) 0.0 10^3/uL (0.0-0.8) 01/19/25 09:11 Baso # (Auto) 0.0 10^3/uL (0.0-0.1) 01/19/25 09:11 Nucleated RBC % (auto) 0.3 % 01/19/25 09:11 Nucleated RBCs # 0.0 /100WBC 01/19/25 09:11 Specimen Type Arterial 01/19/25 10:48 Sample Site Radial, left 01/19/25 10:48 ABG pH 7.46 (7.35-7.45) H 01/19/25 10:48 ABG pCO2 49.1 mmHg (35-45) H 01/19/25 10:48 ABG pO2 93.7 mmHg (80.0-100.0) 01/19/25 10:48 ABG PO2/FiO2 Ratio 312 01/19/25 10:48 ABG HCO3 35.1 mmol/L (22-26) H 01/19/25 10:48 ABG O2 Saturation 97.8 01/19/25 10:48 ABG Base Excess 9.8 mmol/L (-2.0-2.0) H 01/19/25 10:48 Kt Test Pos 01/19/25 10:48 A-a O2 Gradient 7.7 mmHg (5-10) 01/19/25 10:48 Hematocrit 39.8 % (42-52) L 01/19/25 10:48 Hgb O2 Saturation 93.4 % (95-100) L 01/19/25 10:48 Carboxyhemoglobin 4.4 %THgb (0.4-20.1) 01/19/25 10:48 Methemoglobin 0.1 % (0.4-1.5) L 01/19/25 10:48 Total Hemoglobin 13.0 g/dL (14-18) L 01/19/25 10:48 Sodium 140.0 mmol/L (131-143) 01/19/25 10:48 Potassium 4.2 mmol/L (3.5-5.0) 01/19/25 10:48 Glucose 166.0 mg/dL (70-115) H 01/19/25 10:48 Ionized Calcium 1.2 mmol/L (1.1-1.4) 01/19/25 10:48 O2 Delivery Device Nc 01/19/25 10:48 O2 Liters/Min 2.5 % 01/19/25 10:48 FiO2 30.0 % 01/19/25 10:48 Web Assistant ID glc 01/19/25 10:48 Sodium Cancelled 01/19/25 09:11 Potassium Cancelled 01/19/25 09:11 Chloride Cancelled 01/19/25 09:11 Carbon Dioxide Cancelled 01/19/25 09:11 Anion Gap Cancelled 01/19/25 09:11 BUN Cancelled 01/19/25 09:11 Creatinine Cancelled 01/19/25 09:11 GFR Calculation Cancelled 01/19/25 09:11 Glucose Cancelled 01/19/25 09:11 POC Glucose 92 mg/dL (70-110) 01/19/25 09:32 Calculated Osmolality Cancelled 01/19/25 09:11 Calcium Cancelled 01/19/25 09:11 Total Bilirubin Cancelled 01/19/25 09:11 AST Cancelled 01/19/25 09:11 ALT Cancelled 01/19/25 09:11 Alkaline Phosphatase Cancelled 01/19/25 09:11 Total Protein Cancelled 01/19/25 09:11 Albumin Cancelled 01/19/25 09:11 Globulin Cancelled 01/19/25 09:11 Procalcitonin 0.11 ng/mL (0-0.5) 01/19/25 08:53 Urine Color Yellow (Yellow) 01/19/25 10:33 Urine Appearance Cloudy (CLEAR) A 01/19/25 10:33 Urine pH >=9.0 (5-7) A 01/19/25 10:33 Ur Specific [place] 1.011 (1.005-1.030) 01/19/25 10:33 Urine Protein 1+ (Negative) A 01/19/25 10:33 Urine Glucose (UA) Negative (Normal) 01/19/25 10:33 Urine Ketones Negative (Negative) 01/19/25 10:33 Urine Blood Negative (Negative) 01/19/25 10:33 Urine Nitrate Negative (Negative) 01/19/25 10:33 Urine Bilirubin Negative (Negative) 01/19/25 10:33 Urine Urobilinogen 1.0 mg/dL (Negative) 01/19/25 10:33 Ur Leukocyte Esterase Negative (Negative) 01/19/25 10:33 Urine RBC 0-2 /hpf (0-2) 01/19/25 10:33 Urine WBC 0-5 /hpf (0-5) 01/19/25 10:33 Ur Squamous Epith Cells 0-5 /hpf (0-5) 01/19/25 10:33 Amorphous Sediment Trace /hpf 01/19/25 10:33 Urine Bacteria None seen /hpf (NONE) 01/19/25 10:33 Hyaline Casts 0-4 /lpf H 01/19/25 10:33 Urine Yeast Trace /hpf 01/19/25 10:33 All radiology interpretation(s) finalized by discharge Discharge Plan Discharge Patient Disposition: Home Clinical Impression: Hypoglycemia Condition: Stable Prescriptions: No Action gabapentin 600 mg tablet 1,200 mg PO TID prednisone 20 mg tablet See Rx Instructions .ROUTE .COMPLEX Rx Instructions: TAKE 2 TABLETS BY MOUTH ONCE DAILY FOR 5 DAYS THEN 1 ONCE DAILY FOR 5 DAYS THEN 1/2 (ONE-HALF) ONCE DAILY FOR 5 DAYS. bupropion HCl 300 mg tablet extended release 24 hr 300 mg PO QAM acetaminophen 325 mg Tablet 650 mg PO Q6H PRN (Reason: Fever or mild pain) Qty: 30 0RF budesonide 0.5 mg/2 mL Suspension For Nebulization 0.5 mg inhalation BID.RESPIRATORY Qty: 60 0RF bumetanide 1 mg Tablet 1 mg PO BID Qty: 30 0RF gabapentin 300 mg Capsule 600 mg PO TID 30 Days Qty: 180 0RF ipratropium bromide 0.02 % Solution 0.5 mg inhalation Q6H.RESP Qty: 75 0RF metoprolol tartrate 25 mg Tablet 25 mg PO BID@0900,2100 30 Days Qty: 60 0RF prednisone 20 mg Tablet See Taper .ROUTE .COMPLEX Qty: 30 0RF Taper: predniSONE 60-10 40 mg Daily for 2 Days and 0 Hour 30 mg Daily for 2 Days and 0 Hour 20 mg Daily for 2 Days and 0 Hour 10 mg Daily for 2 Days and 0 Hour Rx Instructions: TAPER: 40 mg daily for 2 Days; 30 mg daily for 2 Days; 20 mg daily for 2 Days; 10 mg daily for 2 Days levalbuterol HCl 1.25 mg/3 mL Solution For Nebulization 1.25 mg inhalation Q6H.RESP 30 Days Qty: 360 0RF lisinopril 20 mg tablet 20 mg PO DAILY 30 Days Qty: 0 0RF aspirin 81 mg tablet,delayed release (DR/EC) 81 mg PO DAILY Qty: 30 0RF mupirocin [Centany] 2 % ointment 1 applic topical DAILY 30 Days Qty: 15 0RF Discharge Orders: Discharge ED (Routine); Ordered 01/19/25 Ordered By: Johana Rose Print Language: Hungarian Coding Level of Care Code ED Technical Services Consultant for Reji Rooney
[2025-01-19 09:19] LABS: Basophils % 0.1 %; Eosinophils % 0.1 %; Lymphocytes # 1.2 10^3/uL (0.8-4.8); Lymphocytes % 7.8 %; Mean Corpuscular HGB Conc 30.9 g/dL (30-55); Mean Corpuscular Hemoglobin 28.1 pg (27-33); Mean Corpuscular Volume 91.1 fl (82-101); Mean Platelet Volume 11.7 fL (7.4-10.4); Monocytes # 0.8 10^3/uL (0.2-0.9); Monocytes % 5.1 %; Neutrophils # 13.16 10^3/uL (1.8-7.7); Neutrophils % 86.3 %; Nucleated Red Blood Cells % 0.3 %; Platelet Count 260 10^3/cmm (157-399); Red Blood Count 5.16 10^6/uL (3.85-5.65); Red Cell Distribution Width 23.9 % (12.1-15.1); White Blood Count 15.24 10^3/uL (3.29-11.43)
[2025-01-19 09:30] VITALS: BP 141/72; PULSE 93; RESP 16; O2SAT 88
--- NOTE | 2025-01-19 09:34 | PC.NURSE ---
placed on 2L NC due to oxygen saturation 85-88% on room air
[2025-01-19 09:36] LABS: Glucose Point of Care 92 mg/dL (70-110)
[2025-01-19 10:44] LABS: Bilirubin Urine Negative (Negative); Blood Urine Negative (Negative); Glucose Urine UA Negative (Normal); Ketones Urine Negative (Negative); Leukocyte Esterase Urine Negative (Negative); Nitrate Urine Negative (Negative); Protein Urine 1+ (Negative); Specific Gravity, Urine 1.011 (1.005-1.030); Urine Appearance Cloudy (CLEAR); Urine Color Yellow (Yellow); pH Urine >=9.0 (5-7)
[2025-01-19 10:45] VITALS: BP 167/83; PULSE 94; RESP 16; O2SAT 97
[2025-01-19 10:49] LABS: Add Urine Microscopic? YES; Bacteria Urine None Seen /hpf; Hyaline Casts Urine 0-4 /lpf; RBC Urine 0-2 /hpf (0-2); Squamous Epithelial Cell Urine 0-5 /hpf (0-5); WBC Urine 0-5 /hpf (0-5)
[2025-01-19 10:53] LABS: Alanine Aminotransferase 34 U/L (0-41); Albumin Level 3.1 g/dL (3.5-5.2); Alkaline Phosphatase 134 U/L (40-130); Aspartate Amino Transferase 30 U/L (0-40); Blood Urea Nitrogen 14 mg/dL (8-23); Calcium 9.5 mg/dL (8.5-10.5); Carbon Dioxide 31 mmol/L (22-29); Chloride 97 mmol/L (98-107); Creatinine Clr Calc Pharmacy 123.0774; Globulin 2.7 g/dL (1.3-4.6); Glomerular Filtration Rate 166.4 mL/min (90-130); Glucose 115 mg/dL (65-115); Osmolality Calculated 287 mOsm/kg (285-295); Sodium 138 mmol/L (136-145); Total Bilirubin 0.8 mg/dL (0.15-1.2); Total Protein 5.8 g/dL (6.6-8.7)
[2025-01-19 10:56] LABS: Anion Gap 13.8 (5-19); Potassium 3.8 mmol/L (3.5-5.1)
[2025-01-19 10:57] LABS: Add Urine Culture? No; Amorphous Sediment Urine TRACE /hpf; UA Slide Review UA Slide Review Perf
[2025-01-19 11:00] LABS: Procalcitonin 0.11 ng/mL (0-0.5)
[2025-01-19 11:00] LABS: ABG PCO2 49.1 mmHg (35-45); ABG PH Result 7.46 (7.35-7.45); Alveolar-Arterial Oxygen Gradi 7.7 mmHg (5-10); Arterial Blood Gas Hematocrit 39.8 % (42-52); Base Excess ABG 9.8 mmol/L (-2.0-2.0); Blood Gas Allen Test Pos; Blood Gas LPM 2.5 %; Blood Gas Operator Identificat glc; Blood Gas Sample Site Radial, left; Blood Gas Sample Type Arterial; Carboxyhemoglobin 4.4 %THgb (0.4-20.1); HCO3 ABG 35.1 mmol/L (22-26); HGB O2 Sat 93.4 % (95-100); Ionized Calcium Level - ABG 1.2 mmol/L (1.1-1.4); Methemoglobin 0.1 % (0.4-1.5); Oxygen Device NC; Oxygen Saturation ABG 97.8; PO2 ABG 93.7 mmHg (80.0-100.0); PO2 FiO2 Ratio Arterial Blood 312; Potassium Level - ABG 4.2 mmol/L (3.5-5.0)
[2025-01-19 11:05] VITALS: BP 173/88; PULSE 90; RESP 16; O2SAT 97
[2025-01-19 11:30] VITALS: BP 173/88; PULSE 97; RESP 16; O2SAT 97
--- NOTE | 2025-01-19 11:31 | PC.NURSE ---
Cleansed scattered leg wounds with normal saline, covered with xeroform dressing and wrapped with kerlex.
== END 2025-01-19 11:37 | disposition home or self-care (01) ==
PROVIDERS: Emergency Provider Physician Assistant
DX: E11.649 Type 2 diabetes mellitus with hypoglycemia without coma (principal); I11.0 Hypertensive heart disease with heart failure; I50.9 Heart failure, unspecified
CPT/HCPCS: 36415; 36416; 36600; 71045; 80051; 80053; 81001; 82330; 82805; 82962; 84145; 85025; 99284